=== PATIENT | male | born 1940 | race Two or more races ===

== ENCOUNTER 2016-06-19 15:03 | Emergency (ER) | payer MEDICARE, MEDICAID ==
[~2016-06-19] VITALS: Ht 167.6 cm; Wt 63.5 kg
[~2016-06-19 15:03] MED LIST: NKM
--- NOTE | 2016-06-19 17:15 | Diagnostic Imaging Report ---
Indication: PAIN Technique: 3 views of the shoulder Comparison: none Findings: Bones are osteoporotic. Joint spaces are preserved. No acute fractures or dislocations Impression:No acute process
[2016-06-19 17:50] VITALS: BP 124/65
[2016-06-19 19:30] VITALS: BP 122/68
[2016-06-19 21:45] VITALS: BP 122/68
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
--- NOTE | 2016-06-21 08:28 | Diagnostic Imaging Report ---
Indication: PAIN, headache, laceration Technique: spiral acquisitions obtained through the brain. Angled axial and coronal 5 x 5 mm slices were reconstructed. No IV contrast utilized. Radiation dose was minimized using automated exposure control Total dose length product 1520 mGycm. CTDIvol(s) 70 mGy Comparison: 08/23/2015 FINDINGS: Artifact from dental amalgam may obscure pathology in the posterior fossa. No acute hemorrhage or edema. No mass effect or midline shift. There is age-related enlargement of the ventricles and extra axial CSF spaces. There is periventricular deep white matter ischemic change. Normal yuan-white differentiation. Visualized orbits are unremarkable. There is chronic appearing right maxillary sinus disease with underlying periosteal thickening again demonstrated. Intact calvarium. No significant interim change IMPRESSION: Chronic and age-related changes. Negative for acute intracranial bleed or mass effect The CT scanner at [facility] is accredited by the [employer] and the scans are performed using protocols designed to limit radiation exposure to as low as reasonably achievable to attain images of sufficient resolution adequate for diagnostic evaluation
== END 2016-06-19 21:45 | disposition home or self-care (01) ==
LOC: EDBD 15:03 → EMR 15:26
DX: S01.01XA Laceration without foreign body of scalp, initial encounter (principal); F10.129 Alcohol abuse with intoxication, unspecified; X58.XXXA Exposure to other specified factors, initial encounter; Y92.9 Unspecified place or not applicable; Y99.8 Other external cause status
CPT/HCPCS: 70450

== ENCOUNTER 2017-07-25 14:50 | Inpatient (IN) | payer MEDICARE, MEDICAID ==
[~2017-07-25] VITALS: Ht 172.7 cm; Wt 65.6 kg
[2017-07-25 15:34] VITALS: BP 114/64
[2017-07-25] MEDS ORDERED: fentaNYL 100 mcg/2 mL IV ONE (16:00)
[2017-07-25] MEDS ORDERED: Tetanus/Diptheria/Pertussis Vaccine 0.5ml Syr IM ONE (16:00)
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
[2017-07-25 16:19] LABS: HEMATOCRIT 30.9 % (42.0-52.0); HEMOGLOBIN 10.4 G/DL (14.2-18.0); MEAN CORPUSCULAR VOLUME 109 FL (80-99); PLATELET COUNT 343 K/UL (150-450); RED BLOOD COUNT 2.84 M/UL (4.70-6.10); RED CELL DISTRIBUTION WIDTH 15.8 % (11.6-14.8)
[2017-07-25 16:24] LABS: WHITE BLOOD COUNT 24.6 K/UL (4.8-10.8)
[2017-07-25 16:38] LABS: ANION GAP 18 mmol/L (5-15); BLOOD UREA NITROGEN 36 mg/dL (7-18); CALCIUM 8.4 MG/DL (8.5-10.1); CARBON DIOXIDE 21 MMOL/L (21-32); CHLORIDE 94 MMOL/L (98-107); CREATININE 1.6 MG/DL (0.55-1.30); INR 1.2 (0.9-1.1); POTASSIUM 4.7 MMOL/L (3.5-5.1); SODIUM 133 MMOL/L (136-145)
[2017-07-25 16:52] LABS: ALANINE AMINOTRANSFERASE 77 U/L (12-78); ALBUMIN 2.7 G/DL (3.4-5.0); ALBUMIN/GLOBULIN RATIO 0.6 (1.0-2.7); ALKALINE PHOSPHATASE 159 U/L (46-116); ASPARTATE AMINO TRANSFERASE 202 U/L (15-37); BILIRUBIN,TOTAL 2.8 MG/DL (0.2-1.0); CKMB 63.1 NG/ML (0.0-3.6); CREATINE KINASE 4993 U/L (26-308)
[2017-07-25 16:53] LABS: BILIRUBIN,DIRECT 0.8 MG/DL (0.0-0.3)
--- NOTE | 2017-07-25 17:39 | Diagnostic Imaging Report ---
Indication: Pain status post fall Technique: XRAY Hip Routine 2v+ L Comparison: None Findings: There is an acute mildly comminuted intertrochanteric fracture of the left femur resulting in foreshortening/superior displacement of the distal fracture fragment. There is mild degenerative change of the left hip with joint space narrowing and subchondral sclerosis. No additional pelvic fracture identified. There are atherosclerotic basilar calcifications. IMPRESSION: Acute intertrochanteric fracture of the left femur as above.
--- NOTE | 2017-07-25 18:07 | Diagnostic Imaging Report ---
Indication: Fall Technique: XRAY Chest 1v Comparison: 08/23/2015 Findings: Heart size and mediastinal contours are within normal limits. Atherosclerotic calcifications noted within the aortic arch. There is increased interstitial markings, with more pronounced reticular markings at the bases there is linear atelectasis or scarring at the left base. The right base there is lateral lucency with possible pleural line is clearly representing a pneumothorax versus pulmonary bleb. Further evaluation with CT chest recommended. There are degenerative changes of the spine. IMPRESSION: Lucency at the right lateral base may represent pneumothorax versus pulmonary bleb . Further evaluation with CT of the chest recommended. Findings and imaging follow-up recommendations. Discussed with treating ER physician Dr. Kolb via telephone conversation. Nonspecific increased interstitial markings, most pronounced at the bases. Mild peribronchial thickening.
[2017-07-25 19:09] VITALS: BP 123/57
[2017-07-25 19:48] LABS: APPEARANCE,URINE CLEAR; BILIRUBIN, URINE 2+ (NEGATIVE); GLUCOSE, URINE (UA) NEGATIVE (NEGATIVE); KETONES,URINE 3+ (NEGATIVE); LEUKOCYTE ESTERASE ,URINE 1+ (NEGATIVE); NITRITE,URINE NEGATIVE (NEGATIVE); PH,URINE 6 (4.5-8.0); PROTEIN,URINE 2+ (NEGATIVE); UROBILINOGEN,URINE 4 MG/DL (0.0-1.0)
[2017-07-25 19:49] LABS: COLOR,URINE AMBER
[2017-07-25 20:15] VITALS: BP 120/57
[2017-07-25 20:35] VITALS: BP 112/65
[2017-07-25] MEDS ORDERED: DiphenhydrAMINE 50mg/ml Inj IVP PRN (21:45)
[2017-07-25] MEDS ORDERED: oxyCODONE HCL/Acetaminophen 5/325mg ORAL PRN (21:45)
[2017-07-25] MEDS ORDERED: cefTRIAXone 1 GM in D5W 55 ML IVPB ONE (22:00)
[2017-07-25] MEDS: Heparin 5000 units/ml inj SUBQ SCH (22:00)
[2017-07-25] MEDS: Thiamine 100mg tab ORAL SCH (22:19)
[2017-07-25] MEDS ORDERED: Vancomycin 1 GM in D5W 275 ML IVPB ONE (22:30)
[2017-07-26] VITALS: BP 110/57
--- NOTE | 2017-07-26 02:00 | History and Physical Report ---
DATE OF ADMISSION: 07/25/2017 REASON FOR ADMISSION: 1. Acute kidney injury. 2. Rhabdomyolysis. 3. Acute intertrochanteric fracture of the left femur. HISTORY OF PRESENT ILLNESS: The patient is a 77-year-old male with a history of tobacco and alcohol use, who presented to the emergency room with left hip pain. It seems that the patient had fallen approximately 3 to 7 days ago on the left side of his body. The patient is complaining of left pain in his hip and lower leg. The patient was at home with his and granddaughter, who came to visit him. During this time, the patient had not gotten up for at least 3 days. The family says he does not take any medications and he was otherwise healthy other than using tobacco and alcohol on a regular basis. They have been changing him over the last 3 to 4 days while he was on the floor. Upon presentation in the emergency room, it was noted that he had a white cell count of 24.6, hemoglobin of 10.4, sodium 133, potassium 4.7, BUN 36, creatinine 1.6, bicarb level of 21, and a CPK level of 4993, and troponin level of 0.1. PAST MEDICAL HISTORY: None. PAST SURGICAL HISTORY: None. ALLERGIES: No known drug allergies. SOCIAL HISTORY: The patient has been on alcohol, tobacco, and illicit drug use. REVIEW OF SYSTEMS: NEUROLOGIC: The patient denies headache, change in vision, syncope, or presyncopal episodes. CARDIOVASCULAR: No current chest pain, palpitations, or angina. PULMONARY: No difficulty breathing, productive cough, or sputum. GASTROINTESTINAL/GENITOURINARY: No changes in urinary or bowel habits. No nausea, vomiting, or diarrhea. ENDOCRINOLOGY: No night sweats, fevers, or chills. MUSCULOSKELETAL: The patient is feeling tired and weak with left-sided hip and leg pain. PHYSICAL EXAMINATION: VITAL SIGNS: Blood pressure 120/57, pulse 95, temperature 98.3, and 98% oxygen saturation on room air. GENERAL: The patient is awake, alert, and not otherwise in distress. HEENT: Extraocular muscles intact. No lymphadenopathy noted. CARDIOVASCULAR: S1 and S2. No rubs or gallops. PULMONARY: Clear to auscultation bilaterally. No rales, rhonchi, or wheezes. ABDOMINAL: Nondistended and nontender. EXTREMITIES: No edema noted with left hip externally rotated. LABORATORY DATA: Labs dated 07/25/2017, sodium 133, potassium 4.7, creatinine 1.6, CPK 4993, and troponin level 0.1. White cell count 24.6 and hemoglobin 10.4. ASSESSMENT AND PLAN: 1. 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 At this time, we will continue aggressive hydration. Normal saline has been initiated and a renal ultrasound has been ordered. We will avoid any nephrotoxins and aggressively hydrate the patient. Repeat CPK in the morning and Cr, we may have to increase intravenous fluid rate. 2. Hyponatremia, mild, secondary to volume depletion. At this time, continue aggressive hydration. Last serum sodium 133. 3. Hip fracture. The patient with an acute intertrochanteric fracture of left femur. Orthopedics Dr. Zepeda has been consulted. 4. Elevated troponin. At this time, Cardiology has been consulted to evaluate for possible acute coronary syndrome with elevated troponins and cardiac clearance prior to hip surgery. 5. DVT prophylaxis has been initiated with heparin subcutaneous 5000 units q.8 hours. 6. Leukocytosis, white cell count 24.8. Blood cultures have been ordered and one dose of Rocephin and vancomycin are going to be given after the cultures have been collected. 7. Pulmonary bleb versus right lateral base pneumothorax. We will consult Pulmonary for further evaluation and management. Tien Nielsen MD DR: HEAVENLY JOB#: [id number] CC: GREGOR
[2017-07-26 04:00] VITALS: BP 123/59
[2017-07-26] MEDS: Heparin 5000 units/ml inj SUBQ SCH ×3 (05:51→21:57)
[2017-07-26 08:00] VITALS: BP 123/62
--- NOTE | 2017-07-26 08:27 | Nephrology Progress Note ---
Assessment/Plan Assessment/Plan 1. Acute intertrochanteric fracture of left femur - appreciate Ortho assistance, Dr Zepeda 2. Leukocytosis- cultures collected and Vanc/Rocephin one dose given. Will consult ID for further recc's 3. ACS- elevated Trop I , appreciate cardiology evaluation and clearance for surgery 4. DVT prophylaxsis- with heparing sub q q 8hrs 5. 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 Continue IVF's, AM labs pending 6. Rhabdomyolysis- due to broken femur and immobiliztion for several days at home - CPK and Cr levels pending this am Subjective Date patient seen: July 26, 2017 Time patient seen: 08:22 ROS Limited/Unobtainable: No Constitutional: Reports: weakness, other - left hip/leg pain Allergies: Coded Allergies: No Known Allergies (Unverified , 08/23/15) All Systems: reviewed and negative except above Subjective Patient declining residential monitor. Left leg pain Objective Last 24 Hour Vital Signs Date Time Temp Pulse Resp B/P (MAP) Pulse Ox O2 Delivery O2 Flow Rate FiO2 07/26/17 04:00 98.2 90 20 123/59 95 Room Air 98.2 07/26/17 00:00 98.0 97 20 110/57 96 Room Air 98.0 07/26/17 00:00 104 07/25/17 20:52 102 07/25/17 20:35 98.0 98 20 112/65 99 Room Air 98.0 07/25/17 20:15 98.3 95 18 120/57 98 Room Air 208.9 07/25/17 20:15 98.3 95 18 120/57 98 Room Air 98.3 07/25/17 19:09 109 25 123/57 97 Room Air 07/25/17 15:34 104 16 114/64 98 Room Air 07/25/17 15:27 104 16 114/64 98 Room Air Intake and Output 07/25/17 07/26/17 19:00 07:00 Intake Total 1000 ml 2212 ml Balance 1000 ml 2212 ml Intake Oral 240 ml IV Total 1000 ml 1972 ml # Voids 1 Laboratory Tests 07/25/17 16:01: White Blood Count 24.6*H, Red Blood Count 2.84L, Hemoglobin 10.4L, Hematocrit 30.9L, Mean Corpuscular Volume 109H, Mean Corpuscular Hemoglobin 36.6H, Mean Corpuscular Hemoglobin Concent 33.7, Red Cell Distribution Width 15.8H, Platelet Count 343, Mean Platelet Volume 6.1L, Neutrophils (%) (Auto) , Lymphocytes (%) (Auto) , Monocytes (%) (Auto) , Eosinophils (%) (Auto) , Basophils (%) (Auto) , Differential Total Cells Counted 100, Neutrophils % ( Manual) 90H, Lymphocytes % (Manual) 3L, Monocytes % (Manual) 2, Eosinophils % ( Manual) 0, Basophils % (Manual) 0, Band Neutrophils 5, Platelet Estimate Adequate, Platelet Morphology Normal, Polychromasia 1+, Anisocytosis 1+, Macrocytosis 2+, Prothrombin Time 13.1H, Prothromb Time International Ratio 1.2H , Activated Partial Thromboplast Time 29, Sodium Level 133L, Potassium Level 4.7 , Chloride Level 94L, Carbon Dioxide Level 21, Anion Gap 18H, Blood Urea Nitrogen 36H, Creatinine 1.6H, Estimat Glomerular Filtration Rate , Glucose Level 170H, Calcium Level 8.4L, Total Bilirubin 2.8H, Direct Bilirubin 0.8H, Aspartate Amino Transf (AST/SGOT) 202H, Alanine Aminotransferase (ALT/SGPT) 77, Alkaline Phosphatase 159H, Total Creatine Kinase 4993H, Creatine Kinase MB 63.1H , Creatine Kinase MB Relative Index 1.2, Troponin I 0.101H, Total Protein 7.1, Albumin 2.7L, Globulin 4.4, Albumin/Globulin Ratio 0.6L 07/25/17 19:30: Urine Color Adrcie, Urine Appearance Clear, Urine pH 6, Urine Specific [place] 1.015, Urine Protein 2+H, Urine Glucose (UA) Negative, Urine Ketones 3+H, Urine Occult Blood 5+H, Urine Nitrite Negative, Urine Bilirubin 2+H, Urine Ictotest Positive, Urine Urobilinogen 4H, Urine Leukocyte Esterase 1+H, Urine RBC 5-10H, Urine WBC 5-10H, Urine Squamous Epithelial Cells Occasional, Urine Bacteria Few Height (Feet): 5 Height (Inches): 8.00 Weight (Pounds): 150 General Appearance: WD/WN, no apparent distress EENT: PERRL/EOMI, normal ENT inspection Neck: non-tender, normal alignment Cardiovascular: normal peripheral pulses, regular rhythm Respiratory/Chest: lungs clear, normal breath sounds Abdomen: non tender, soft Edema: no edema noted Arm (L), no edema noted Arm (R), no edema noted Leg (L), no edema noted Leg (R), no edema noted Pedal (L), no edema noted Pedal (R), no edema noted Generalized Tien Nielsen M.D. July 26, 2017 08:27
[2017-07-26] MEDS: Thiamine 100mg tab ORAL SCH (08:41)
[2017-07-26 09:16] LABS: HEMATOCRIT 26.4 % (42.0-52.0); HEMOGLOBIN 8.7 G/DL (14.2-18.0); MEAN CORPUSCULAR VOLUME 111 FL (80-99); PLATELET COUNT 277 K/UL (150-450); RED BLOOD COUNT 2.37 M/UL (4.70-6.10); RED CELL DISTRIBUTION WIDTH 15.5 % (11.6-14.8)
[2017-07-26 09:37] LABS: ANION GAP 9 mmol/L (5-15); BLOOD UREA NITROGEN 24 mg/dL (7-18); CALCIUM 7.6 MG/DL (8.5-10.1); CARBON DIOXIDE 25 MMOL/L (21-32); CHLORIDE 101 MMOL/L (98-107); POTASSIUM 3.5 MMOL/L (3.5-5.1); SODIUM 135 MMOL/L (136-145)
--- NOTE | 2017-07-26 10:04 | Diagnostic Imaging Report ---
Indication: Neck pain. Technique: Continuous helical imaging of the cervical spine was obtained transaxially from the skull base to the upper thoracic spine. 2-D coronal and sagittal reformatted images were obtained. Automatic Exposure Control was utilized. Total Dose length Product (DLP): 1655.[address] Dose Index Volume (CTDIvol): 70.38,12.82 mGy Comparison: None Findings: There is no acute fracture or malalignment identified. There is no soft tissue swelling identified. There is a somewhat accentuated lordosis of the cervical spine. Mild uncovertebral arthritis is demonstrated at multiple levels. Some of the intervertebral discs show mild narrowing. There is some biapical paraseptal bleb formation within the lungs. Impression: No acute injury. Mild spondylosis Chronic lung disease. [facility] has communicated the preliminary results to the Emergency Department. Their findings are largely concordant with this report. The CT scanner at [facility] is accredited by the [employer] and the scans are performed using dose optimization techniques as appropriate to a performed exam including Automatic Exposure control.
--- NOTE | 2017-07-26 10:39 | Diagnostic Imaging Report ---
Indication: Headache. Head trauma Technique: Contiguous 5 mm thick transaxial imaging of the head obtained in a Siemens Sensation [address] scanner. Soft tissue and bone windows generated. Automatic Exposure Control was utilized. Total Dose length Product (DLP): 1655.[address] Dose Index Volume (CTDIvol): 70.38,12.82 mGy Comparison: 06/19/2016 Findings: There is moderate prominence of the ventricles, basal cisterns, and cerebral sulci consistent with atrophy. Moderate, nonspecific, white matter hypoattenuation is noted throughout the brain consistent with chronic small vessel disease. There is no midline shift, edema, acute hemorrhage, mass effect, or abnormal extra-axial fluid collections. There is osteitis with wall thickening involving the right maxillary sinus which is abnormally opacified. Impression: No acute intracranial bleed, mass effect or edema. Moderate atrophy of the brain. Evidence of chronic small vessel disease involving white matter tracts. Chronic right maxillary sinusitis. [facility] has communicated the preliminary results to the Emergency Department. Their findings are largely concordant with this report. The CT scanner at [facility] is accredited by the [employer] and the scans are performed using dose optimization techniques as appropriate to a performed exam including Automatic Exposure control.
[2017-07-26 10:42] LABS: CREATINE KINASE 3078 U/L (26-308)
[2017-07-26 12:00] VITALS: BP 117/61
--- NOTE | 2017-07-26 13:19 | Infectious Diseases Prog Note ---
Assessment/Plan Problems: (1) Sepsis Assessment & Plan: will send blood culture and start vancomycin with cefepime empirically (2) UTI (urinary tract infection) Assessment & Plan: will send urine culture and start cefepime empirically (3) Onychomycosis Assessment & Plan: will start lamasil for 3 months (4) Hip fracture, left Assessment & Plan: will need ortho eval for ORIF , continue pain control (5) GENTRY (acute kidney injury) Assessment & Plan: due to the above, continue hydration and renally dosed antibiotics, pharmacy is following Subjective Allergies: Coded Allergies: No Known Allergies (Unverified , 08/23/15) Objective Vital Signs Last 24 Hour Vital Signs Date Time Temp Pulse Resp B/P (MAP) Pulse Ox O2 Delivery O2 Flow Rate FiO2 07/26/17 08:00 97.5 94 20 123/62 96 Room Air 97.5 07/26/17 08:00 97 07/26/17 04:00 98.2 90 20 123/59 95 Room Air 98.2 07/26/17 00:00 98.0 97 20 110/57 96 Room Air 98.0 07/26/17 00:00 104 07/25/17 20:52 102 07/25/17 20:35 98.0 98 20 112/65 99 Room Air 98.0 07/25/17 20:15 98.3 95 18 120/57 98 Room Air 208.9 07/25/17 20:15 98.3 95 18 120/57 98 Room Air 98.3 07/25/17 19:09 109 25 123/57 97 Room Air 07/25/17 15:34 104 16 114/64 98 Room Air 07/25/17 15:27 104 16 114/64 98 Room Air Height (Feet): 5 Height (Inches): 8.00 Weight (Pounds): 150 Laboratory Tests Test 07/25/17 16:01 07/25/17 19:30 07/26/17 08:00 White Blood Count 24.6 K/UL (4.8-10.8) *H 19.0 K/UL (4.8-10.8) H Red Blood Count 2.84 M/UL (4.70-6.10) L 2.37 M/UL (4.70-6.10) L Hemoglobin 10.4 G/DL (14.2-18.0) L 8.7 G/DL (14.2-18.0) L Hematocrit 30.9 % (42.0-52.0) L 26.4 % (42.0-52.0) L Mean Corpuscular Volume 109 FL (80-99) H 111 FL (80-99) H Mean Corpuscular Hemoglobin 36.6 PG (27.0-31.0) H 36.9 PG (27.0-31.0) H Mean Corpuscular Hemoglobin Concent 33.7 G/DL (32.0-36.0) 33.2 G/DL (32.0-36.0) Red Cell Distribution Width 15.8 % (11.6-14.8) H 15.5 % (11.6-14.8) H Platelet Count 343 K/UL (150-450) 277 K/UL (150-450) Mean Platelet Volume 6.1 FL (6.5-10.1) L 6.5 FL (6.5-10.1) Neutrophils (%) (Auto) % (45.0-75.0) % (45.0-75.0) Lymphocytes (%) (Auto) % (20.0-45.0) % (20.0-45.0) Monocytes (%) (Auto) % (1.0-10.0) % (1.0-10.0) Eosinophils (%) (Auto) % (0.0-3.0) % (0.0-3.0) Basophils (%) (Auto) % (0.0-2.0) % (0.0-2.0) Differential Total Cells Counted 100 100 Neutrophils % (Manual) 90 % (45-75) H 93 % (45-75) H Lymphocytes % (Manual) 3 % (20-45) L 4 % (20-45) L Monocytes % (Manual) 2 % (1-10) 3 % (1-10) Eosinophils % (Manual) 0 % (0-3) 0 % (0-3) Basophils % (Manual) 0 % (0-2) 0 % (0-2) Band Neutrophils 5 % (0-8) 0 % (0-8) Platelet Estimate Adequate Adequate Platelet Morphology Normal Normal Polychromasia 1+ Anisocytosis 1+ 1+ Macrocytosis 2+ 1+ Prothrombin Time 13.1 SEC (9.30-11.50) H Prothromb Time International Ratio 1.2 (0.9-1.1) H Activated Partial Thromboplast Time 29 SEC (23-33) Sodium Level 133 MMOL/L (136-145) L 135 MMOL/L (136-145) L Potassium Level 4.7 MMOL/L (3.5-5.1) 3.5 MMOL/L (3.5-5.1) Chloride Level 94 MMOL/L (98-107) L 101 MMOL/L (98-107) Carbon Dioxide Level 21 MMOL/L (21-32) 25 MMOL/L (21-32) Anion Gap 18 mmol/L (5-15) H 9 mmol/L (5-15) Blood Urea Nitrogen 36 mg/dL (7-18) H 24 mg/dL (7-18) H Creatinine 1.6 MG/DL (0.55-1.30) H 1.0 MG/DL (0.55-1.30) Estimat Glomerular Filtration Rate mL/min (>60) mL/min (>60) Glucose Level 170 MG/DL (74-106) H 154 MG/DL (74-106) H Calcium Level 8.4 MG/DL (8.5-10.1) L 7.6 MG/DL (8.5-10.1) L Total Bilirubin 2.8 MG/DL (0.2-1.0) H Direct Bilirubin 0.8 MG/DL (0.0-0.3) H Aspartate Amino Transf (AST/SGOT) 202 U/L (15-37) H Alanine Aminotransferase (ALT/SGPT) 77 U/L (12-78) Alkaline Phosphatase 159 U/L (46-116) H Total Creatine Kinase 4993 U/L (26-308) H 3078 U/L (26-308) H Creatine Kinase MB 63.1 NG/ML (0.0-3.6) H Creatine Kinase MB Relative Index 1.2 Troponin I 0.101 ng/mL (0.000-0.056) 0.074 ng/mL (0.000-0.056) Total Protein 7.1 G/DL (6.4-8.2) Albumin 2.7 G/DL (3.4-5.0) L Globulin 4.4 g/dL Albumin/Globulin Ratio 0.6 (1.0-2.7) L Urine Color Darcie Urine Appearance Clear Urine pH 6 (4.5-8.0) Urine Specific [place] 1.015 (1.005-1.035) Urine Protein 2+ (NEGATIVE) H Urine Glucose (UA) Negative (NEGATIVE) Urine Ketones 3+ (NEGATIVE) H Urine Occult Blood 5+ (NEGATIVE) H Urine Nitrite Negative (NEGATIVE) Urine Bilirubin 2+ (NEGATIVE) H Urine Ictotest Positive Urine Urobilinogen 4 MG/DL (0.0-1.0) H Urine Leukocyte Esterase 1+ (NEGATIVE) H Urine RBC 5-10 /HPF (0 - 0) H Urine WBC 5-10 /HPF (0 - 0) H Urine Squamous Epithelial Cells Occasional /LPF Urine Bacteria Few /HPF (NONE) Hypochromasia 1+ Current Medications Medications (Trade) Dose Ordered Sig/Leeroy Route PRN Reason Start Time Stop Time Status Last Admin Dose Admin Aspirin (ASA) 325 mg ONCE ORAL 07/25/17 18:30 07/26/17 18:29 07/25/17 19:01 Dextrose (Dextrose 50%) 25 ml STAT PRN IV Hypoglycemia 07/25/17 20:45 08/24/17 20:44 Dextrose (Dextrose 50%) 50 ml STAT PRN IV Hypoglycemia 07/25/17 20:45 08/24/17 20:44 Diphenhydramine HCl (Benadryl) 25 mg Q6H PRN IVP Restlessness 07/25/17 21:45 08/24/17 21:44 Folic Acid (Folate) 1 mg DAILY ORAL 07/26/17 09:00 08/25/17 08:59 07/26/17 08:41 Heparin Sodium (Porcine) (Heparin 5000 units/ml) 5,000 units EVERY 8 HOURS SUBQ 07/25/17 22:00 08/24/17 21:59 07/26/17 05:51 Oxycodone/ Acetaminophen (Percocet 5-325) 1 tab Q4H PRN ORAL Mild Pain (Pain Scale 1-3) 07/25/17 21:45 08/01/17 21:44 Sodium Chloride 1,000 ml @ 100 mls/hr Q10H IVLG 07/25/17 21:44 08/24/17 21:43 07/26/17 08:43 Thiamine HCl (Vitamin B1) 100 mg DAILY ORAL 07/25/17 21:15 08/24/17 21:14 07/26/17 08:41 Kee Mcfarlane M.D. July 26, 2017 13:19
--- NOTE | 2017-07-26 14:02 | Anethesia Preoperative Eval ---
Anesthesia Pre-op PMH/ROS General Date of Evaluation: July 26, 2017 Time of Evaluation: 14:00 Anesthesiologist: VESTA ASA Score: ASA 2 Mallampati Score Class I : Soft palate, uvula, fauces, pillars visible Class II: Soft palate, uvula, fauces visible Class III: Soft palate, base of uvula visible Class IV: Only hard plate visible Mallampati Classification: Class II Surgeon: Duane Diagnosis: Left Hip Fracture Surgical Procedure: ORIF Left Hip Anesthesia History: none Family History: no anesthesia problems Allergies: Coded Allergies: No Known Allergies (Unverified , 08/23/15) Medications: see eMAR Anesthesia Pre-op Phys. Exam Physician Exam Last Vital Signs Date Time Temp Pulse Resp B/P (MAP) Pulse Ox O2 Delivery O2 Flow Rate FiO2 07/26/17 12:00 97.7 82 18 117/61 95 Room Air 97.7 Constitutional: NAD Neurologic: CN 2-12 intact Cardiovascular: RRR Respiratory: CTA Gastrointestinal: S/NT/ND Airway Exam Mallampati Score: Class II MO: full ROM: full Teeth: intact Anesthesia Pre-op A/P Labs Hematology Test 07/25/17 16:01 07/26/17 08:00 White Blood Count 24.6 K/UL (4.8-10.8) *H 19.0 K/UL (4.8-10.8) H Red Blood Count 2.84 M/UL (4.70-6.10) L 2.37 M/UL (4.70-6.10) L Hemoglobin 10.4 G/DL (14.2-18.0) L 8.7 G/DL (14.2-18.0) L Hematocrit 30.9 % (42.0-52.0) L 26.4 % (42.0-52.0) L Mean Corpuscular Volume 109 FL (80-99) H 111 FL (80-99) H Mean Corpuscular Hemoglobin 36.6 PG (27.0-31.0) H 36.9 PG (27.0-31.0) H Mean Corpuscular Hemoglobin Concent 33.7 G/DL (32.0-36.0) 33.2 G/DL (32.0-36.0) Red Cell Distribution Width 15.8 % (11.6-14.8) H 15.5 % (11.6-14.8) H Platelet Count 343 K/UL (150-450) 277 K/UL (150-450) Mean Platelet Volume 6.1 FL (6.5-10.1) L 6.5 FL (6.5-10.1) Neutrophils (%) (Auto) % (45.0-75.0) % (45.0-75.0) Lymphocytes (%) (Auto) % (20.0-45.0) % (20.0-45.0) Monocytes (%) (Auto) % (1.0-10.0) % (1.0-10.0) Eosinophils (%) (Auto) % (0.0-3.0) % (0.0-3.0) Basophils (%) (Auto) % (0.0-2.0) % (0.0-2.0) Differential Total Cells Counted 100 100 Neutrophils % (Manual) 90 % (45-75) H 93 % (45-75) H Lymphocytes % (Manual) 3 % (20-45) L 4 % (20-45) L Monocytes % (Manual) 2 % (1-10) 3 % (1-10) Eosinophils % (Manual) 0 % (0-3) 0 % (0-3) Basophils % (Manual) 0 % (0-2) 0 % (0-2) Band Neutrophils 5 % (0-8) 0 % (0-8) Platelet Estimate Adequate Adequate Platelet Morphology Normal Normal Polychromasia 1+ Anisocytosis 1+ 1+ Macrocytosis 2+ 1+ Hypochromasia 1+ Coagulation Test 07/25/17 16:01 Prothrombin Time 13.1 SEC (9.30-11.50) H Prothromb Time International Ratio 1.2 (0.9-1.1) H Activated Partial Thromboplast Time 29 SEC (23-33) Chemistry Test 07/25/17 16:01 07/26/17 08:00 Sodium Level 133 MMOL/L (136-145) L 135 MMOL/L (136-145) L Potassium Level 4.7 MMOL/L (3.5-5.1) 3.5 MMOL/L (3.5-5.1) Chloride Level 94 MMOL/L (98-107) L 101 MMOL/L (98-107) Carbon Dioxide Level 21 MMOL/L (21-32) 25 MMOL/L (21-32) Anion Gap 18 mmol/L (5-15) H 9 mmol/L (5-15) Blood Urea Nitrogen 36 mg/dL (7-18) H 24 mg/dL (7-18) H Creatinine 1.6 MG/DL (0.55-1.30) H 1.0 MG/DL (0.55-1.30) Estimat Glomerular Filtration Rate mL/min (>60) mL/min (>60) Glucose Level 170 MG/DL (74-106) H 154 MG/DL (74-106) H Calcium Level 8.4 MG/DL (8.5-10.1) L 7.6 MG/DL (8.5-10.1) L Total Bilirubin 2.8 MG/DL (0.2-1.0) H Direct Bilirubin 0.8 MG/DL (0.0-0.3) H Aspartate Amino Transf (AST/SGOT) 202 U/L (15-37) H Alanine Aminotransferase (ALT/SGPT) 77 U/L (12-78) Alkaline Phosphatase 159 U/L (46-116) H Total Creatine Kinase 4993 U/L (26-308) H 3078 U/L (26-308) H Creatine Kinase MB 63.1 NG/ML (0.0-3.6) H Creatine Kinase MB Relative Index 1.2 Troponin I 0.101 ng/mL (0.000-0.056) 0.074 ng/mL (0.000-0.056) Total Protein 7.1 G/DL (6.4-8.2) Albumin 2.7 G/DL (3.4-5.0) L Globulin 4.4 g/dL Albumin/Globulin Ratio 0.6 (1.0-2.7) L Risk Assessment & Plan Plan: GA Status Change Before Surgery: No Pre-Antibiotics Given Within 1 Hr of Incision: Ld Smith M.D. July 26, 2017 14:02
--- NOTE | 2017-07-26 14:07 | Diagnostic Imaging Report ---
Indication:Elevated Bun and Creatinine. Technique: Grayscale and duplex Doppler imaging of the kidneys performed. Comparison: None Findings: The size, contour, and echogenicity of both kidneys are within normal limits. There is a small cyst 8 mm and 10 mm in size within the right kidney. Right kidney is 9.6 cm. Left kidney 9.5 cm. There is no hydronephrosis. The IVC and urinary bladder are unremarkable. Liver is echogenic. IMPRESSION: Negative examination of the kidneys. Right renal cyst Fatty liver
[2017-07-26] MEDS: Cefepime HCl 2 GM in D5W 55 ML IVPB SCH (15:28)
--- NOTE | 2017-07-26 15:29 | Diagnostic Imaging Report ---
Indication: Pneumothorax. Technique: Continuous helical transaxial imaging of the chest was obtained from the thoracic inlet to the upper abdomen. No intravenous contrast was administered. Coronal 2-D reformats were also obtained. Total Dose length Product (DLP): 459.[address] Dose Index Volume (CTDIvol): 13.23 mGy Comparison: none Findings: There is a small pneumothorax at the right lung base less than 5%. There is considerable reticular densities at the lung bases bilaterally with some groundglass opacities, bronchiectasis and extensive bullous disease consistent with emphysema. Generalized hyperinflation demonstrated. Aorta is moderately calcified. Visualized upper abdomen shows 2 or 3 calcifications in the left renal hilum which may be small nonobstructive stones. Punctate calcifications in the liver also noted nonspecific. There is narrowing of intervertebral discs and accompanying endplate osteophyte formation. Hypertrophied facet joints also demonstrated.. IMPRESSION: Tiny right basilar pneumothorax. Extensive bullous emphysema with scattered areas of scarring and brought traction bronchiectasis. Degenerative changes of the spine Atherosclerotic disease Suspected tiny nonobstructive stones in the left kidney. Few calcified in the liver. This may be due to old granulomatous disease The CT scanner at [facility] is accredited by the [employer] and the scans are performed using dose optimization techniques as appropriate to a performed exam including Automatic Exposure control.
--- NOTE | 2017-07-26 15:37 | Cardiac Electrophysiology PN ---
Subjective Subjective [id number] Objective Last 24 Hour Vital Signs Date Time Temp Pulse Resp B/P (MAP) Pulse Ox O2 Delivery O2 Flow Rate FiO2 07/26/17 12:00 97.7 82 18 117/61 95 Room Air 97.7 07/26/17 12:00 82 07/26/17 08:00 97.5 94 20 123/62 96 Room Air 97.5 07/26/17 08:00 97 07/26/17 04:00 98.2 90 20 123/59 95 Room Air 98.2 07/26/17 00:00 98.0 97 20 110/57 96 Room Air 98.0 07/26/17 00:00 104 07/25/17 20:52 102 07/25/17 20:35 98.0 98 20 112/65 99 Room Air 98.0 07/25/17 20:15 98.3 95 18 120/57 98 Room Air 208.9 07/25/17 20:15 98.3 95 18 120/57 98 Room Air 98.3 07/25/17 19:09 109 25 123/57 97 Room Air Intake and Output 07/25/17 07/26/17 19:00 07:00 Intake Total 1000 ml 2212 ml Balance 1000 ml 2212 ml Intake Oral 240 ml IV Total 1000 ml 1972 ml # Voids 1 Laboratory Tests Test 07/25/17 16:01 07/25/17 19:30 07/26/17 08:00 White Blood Count 24.6 K/UL (4.8-10.8) *H 19.0 K/UL (4.8-10.8) H Red Blood Count 2.84 M/UL (4.70-6.10) L 2.37 M/UL (4.70-6.10) L Hemoglobin 10.4 G/DL (14.2-18.0) L 8.7 G/DL (14.2-18.0) L Hematocrit 30.9 % (42.0-52.0) L 26.4 % (42.0-52.0) L Mean Corpuscular Volume 109 FL (80-99) H 111 FL (80-99) H Mean Corpuscular Hemoglobin 36.6 PG (27.0-31.0) H 36.9 PG (27.0-31.0) H Mean Corpuscular Hemoglobin Concent 33.7 G/DL (32.0-36.0) 33.2 G/DL (32.0-36.0) Red Cell Distribution Width 15.8 % (11.6-14.8) H 15.5 % (11.6-14.8) H Platelet Count 343 K/UL (150-450) 277 K/UL (150-450) Mean Platelet Volume 6.1 FL (6.5-10.1) L 6.5 FL (6.5-10.1) Neutrophils (%) (Auto) % (45.0-75.0) % (45.0-75.0) Lymphocytes (%) (Auto) % (20.0-45.0) % (20.0-45.0) Monocytes (%) (Auto) % (1.0-10.0) % (1.0-10.0) Eosinophils (%) (Auto) % (0.0-3.0) % (0.0-3.0) Basophils (%) (Auto) % (0.0-2.0) % (0.0-2.0) Differential Total Cells Counted 100 100 Neutrophils % (Manual) 90 % (45-75) H 93 % (45-75) H Lymphocytes % (Manual) 3 % (20-45) L 4 % (20-45) L Monocytes % (Manual) 2 % (1-10) 3 % (1-10) Eosinophils % (Manual) 0 % (0-3) 0 % (0-3) Basophils % (Manual) 0 % (0-2) 0 % (0-2) Band Neutrophils 5 % (0-8) 0 % (0-8) Platelet Estimate Adequate Adequate Platelet Morphology Normal Normal Polychromasia 1+ Anisocytosis 1+ 1+ Macrocytosis 2+ 1+ Prothrombin Time 13.1 SEC (9.30-11.50) H Prothromb Time International Ratio 1.2 (0.9-1.1) H Activated Partial Thromboplast Time 29 SEC (23-33) Sodium Level 133 MMOL/L (136-145) L 135 MMOL/L (136-145) L Potassium Level 4.7 MMOL/L (3.5-5.1) 3.5 MMOL/L (3.5-5.1) Chloride Level 94 MMOL/L (98-107) L 101 MMOL/L (98-107) Carbon Dioxide Level 21 MMOL/L (21-32) 25 MMOL/L (21-32) Anion Gap 18 mmol/L (5-15) H 9 mmol/L (5-15) Blood Urea Nitrogen 36 mg/dL (7-18) H 24 mg/dL (7-18) H Creatinine 1.6 MG/DL (0.55-1.30) H 1.0 MG/DL (0.55-1.30) Estimat Glomerular Filtration Rate mL/min (>60) mL/min (>60) Glucose Level 170 MG/DL (74-106) H 154 MG/DL (74-106) H Calcium Level 8.4 MG/DL (8.5-10.1) L 7.6 MG/DL (8.5-10.1) L Total Bilirubin 2.8 MG/DL (0.2-1.0) H Direct Bilirubin 0.8 MG/DL (0.0-0.3) H Aspartate Amino Transf (AST/SGOT) 202 U/L (15-37) H Alanine Aminotransferase (ALT/SGPT) 77 U/L (12-78) Alkaline Phosphatase 159 U/L (46-116) H Total Creatine Kinase 4993 U/L (26-308) H 3078 U/L (26-308) H Creatine Kinase MB 63.1 NG/ML (0.0-3.6) H Creatine Kinase MB Relative Index 1.2 Troponin I 0.101 ng/mL (0.000-0.056) 0.074 ng/mL (0.000-0.056) Total Protein 7.1 G/DL (6.4-8.2) Albumin 2.7 G/DL (3.4-5.0) L Globulin 4.4 g/dL Albumin/Globulin Ratio 0.6 (1.0-2.7) L Urine Color Darcie Urine Appearance Clear Urine pH 6 (4.5-8.0) Urine Specific [place] 1.015 (1.005-1.035) Urine Protein 2+ (NEGATIVE) H Urine Glucose (UA) Negative (NEGATIVE) Urine Ketones 3+ (NEGATIVE) H Urine Occult Blood 5+ (NEGATIVE) H Urine Nitrite Negative (NEGATIVE) Urine Bilirubin 2+ (NEGATIVE) H Urine Ictotest Positive Urine Urobilinogen 4 MG/DL (0.0-1.0) H Urine Leukocyte Esterase 1+ (NEGATIVE) H Urine RBC 5-10 /HPF (0 - 0) H Urine WBC 5-10 /HPF (0 - 0) H Urine Squamous Epithelial Cells Occasional /LPF Urine Bacteria Few /HPF (NONE) Hypochromasia 1+ Preet Spencer MD July 26, 2017 15:37
[2017-07-26 16:00] VITALS: BP 129/70
--- NOTE | 2017-07-26 17:30 | Consultation ---
DATE OF CONSULTATION: 07/26/2017 PULMONARY CONSULTATION CONSULTING PHYSICIAN: Hay Crook M.D. HISTORY OF PRESENT ILLNESS: This is a 77-year-old male, who was admitted to the hospital after an acute fall. The patient was seen and worked up. He was found to have an acute intertrochanteric fracture of left femur. He also found to have renal failure and rhabdomyolysis. Additionally, he has been found to have abnormality on chest x-ray, which is possibly a loculated pneumothorax or a bleb. On my review, it appears more like a loculated right basilar pneumothorax. The patient unable to provide any clear history. PAST HISTORY: Not known. SURGERIES: Not known. ALLERGIES: Not known. SOCIAL HISTORY: No history of alcohol or tobacco usage. REVIEW OF SYSTEMS: Denies any headaches, hematemesis, or melena. No shortness of breath. PHYSICAL EXAMINATION: GENERAL: Reveals a 77-year-old male. HEENT: Unremarkable. LUNGS: Clear breath sounds bilaterally. ABDOMEN: Soft. EXTREMITIES: There is no edema. NEUROLOGIC: Nonfocal. LABORATORY AND DIAGNOSTIC DATA: Lab testing is unremarkable with normal CBC and BMP. The exception, of course, is the white count 19,000, hemoglobin of 8, and platelet count is 277,000. Creatinine is 1. Coagulations are negative. Urinalysis is negative. IMPRESSION: 1. Loculated right pneumothorax. 2. Hip fracture. DISCUSSION: We will obtain CT chest. The patient is anticipated to undergo hip surgery. He may be on positive-pressure ventilation, which may have worsened the pneumothorax. I will therefore obtain chest CT and if indicated, we will consider placement of small bore chest tube. We will follow as jack spooler tender. Hay Crook M.D. DR: SHANELLE JOB#: [id number] CC:
--- NOTE | 2017-07-26 18:13 | Cardiology Report ---
APPROVED REPORT EKG Measurement Heart [id number] Sinus tachycardia Pulmonary disease pattern Right bundle branch block Left anterior fascicular block Bifascicular block Abnormal ECG
--- NOTE | 2017-07-26 19:30 | Consultation ---
DATE OF CONSULTATION: 07/26/2017 CONSULTING PHYSICIAN: Kee Mcfarlane M.D. REQUESTING PHYSICIAN: Dr. morgan REASON FOR CONSULTATION: Sepsis, leukocytosis, and UTI. Recommendation for antibiotics treatment. HISTORY OF PRESENT ILLNESS: The patient is a 77-year-old gentleman with no significant past medical history except for alcohol and tobacco abuse, who presented to [facility] Emergency Room with sudden onset of left hip pain for almost 3 days. The patient fell at home a couple of days ago. He landed on his left side of the body and was complaining of pain in his left hip and left leg. The patient was being assisted by his and granddaughter at that time when he was unable to get up or walk after his fall. The patient used usually tobacco and alcohol on regular basis and he has been so far bedridden for the last four days as per the record. The patient was found to have left femur neck fracture in the emergency room as part of his evaluation. His white count was elevated to 24,000. His urinalysis showed evidence of infection. His CPK level also was elevated due to rhabdomyolysis with renal failure, so Infectious Disease consultation was requested for management and treatment of sepsis and UTI. As of note, the patient is Brazilian speaker mainly. History was mainly obtained via back sizer. PAST MEDICAL HISTORY: Tobacco and alcohol abuse. PAST SURGICAL HISTORY: Negative. ALLERGIES: No known drug allergy. SOCIAL HISTORY: The patient lives at home with and granddaughter. He used tobacco and alcohol, but denied any illicit drugs. MEDICATIONS: The patient was started on vancomycin and ceftriaxone. For the rest of his medications, please refer to MAR. PHYSICAL EXAMINATION: VITAL SIGNS: Temperature 97.7, pulse 82, respiration 18, blood pressure 117/61, saturation 95% on room air. GENERAL: An elderly male, lying in bed, awake, alert, Brazilian speaker, not in acute distress. HEENT: Normocephalic and atraumatic. Pupils reactive to light. Moist oral mucosa. No exudate or thrush. NECK: Supple. No lymphadenopathy. CARDIOVASCULAR: Regular rate and rhythm. No murmur. No gallop. LUNGS: Clear bilaterally. No wheezing or rhonchi. Normal breathing effort. ABDOMEN: Soft, nontender, nondistended. Normal bowel sounds. No hepatosplenomegaly. No ascites. No rebound. EXTREMITIES: He had edema and swelling at the left thigh area and hip with decreased range of motion in the left hip joint. He had bruises mainly in the left lateral hip area and the sacrum. No rash. No ulceration. With severe onychomycosis in both feet. SKIN: No rash. No hives. Red ecchymotic on the sacrum with bruises below the left eye. LABORATORY AND DIAGNOSTIC DATA: Labs showed white count of 24,600, hemoglobin of 10.4, platelet count of 343,000. BUN of 36, creatinine of 1.6. AST of 202, ALT of 77, alkaline phosphatase of 159. Total CK of 4993. Urinalysis showed +1 leukocyte esterase, wbc 5 to 10, red blood cells 5 to 10. IMAGING: Hip x-ray showed acute intertrochanteric fracture of the left femur as above. Head CT scan showed no acute intracranial bleed, mass effect, or edema. Moderate atrophy of the brain, chronic small vessel disease involving white matter tracts. Chest x-ray showed lucency at the right lateral base, may represent pneumothorax versus pulmonary blood, nonspecific increased interstitial markings most pronounced at the bases. Cervical spine CT scan showed no acute injury, mild spondylosis, chronic lung disease. ASSESSMENT AND RECOMMENDATION: 1. Sepsis with leukocytosis, source unclear at this point. We will send blood culture and urine culture and start vancomycin and cefepime empiric treatment. We will monitor his chest x-ray for any new infiltrates development. 2. UTI. We will send urine culture and start cefepime empiric coverage. 3. Severe onychomycosis in both legs. We will start Lamisil for 3 months' course of treatment. Follow up with medical officer psychiatry. 4. Hip fracture on the left. He will need orthopedic evaluation for open reduction and internal fixation. Continue pain control. 5. Acute kidney failure due to rhabdomyolysis and dehydration. Continue fluid and renally dose antibiotics as per pharmacy. 6. Rhabdomyolysis due to fall and muscle injury. Continue hydration. Monitor CK level. Nephrology is following. Thank you for the consult. ID will continue to follow. Kee Mcfarlane M.D. DR: Heron JOB#: [id number] CC: GREGOR
[2017-07-26 20:00] VITALS: BP 133/60
--- NOTE | 2017-07-26 20:15 | Consultation ---
DATE OF CONSULTATION: 07/26/2017 CONSULTING PHYSICIAN: Preet Spencer M.D. REFERRING PHYSICIAN: Ulysses Sarabia M.D. REASON FOR CONSULTATION: Preoperative clearance to femur surgery. HISTORY OF PRESENT ILLNESS: The patient is a 77-year-old gentleman with history of alcohol and tobacco use, who was brought to the emergency room after he had a fall after he drank alcohol. Fall was three to seven days ago. The patient was having pain to the left hip and left lower leg. The patient had not gotten up for about three days. The patient was brought to the emergency room and x-ray confirmed that the patient had rhabdomyolysis with acute intertrochanteric hip fracture. Dr. Zepeda was consulted and Cardiology consultation was obtained for preoperative evaluation. REVIEW OF SYSTEMS: Negative other than what was mentioned in history of present illness. PAST MEDICAL HISTORY: Negative. MEDICATION: At home, none. SOCIAL HISTORY: He drinks alcohol daily and smokes tobacco at least a pack a day. Denies illicit drug use. Lives at home. ALLERGIES: He has no known drug allergies. PHYSICAL EXAMINATION: VITAL SIGNS: Blood pressure 117/61, pulse 82, respirations 18, and temperature 97.7. HEAD AND NECK: Shows no JVD. LUNGS: Clear. CARDIOVASCULAR: Shows regular S1 and S2 with no gallop or murmur. ABDOMEN: Soft. EXTREMITIES: No pitting edema. LABORATORY AND DIAGNOSTIC DATA: His labs show white count of 24.6 went down to 19, hemoglobin 8.7, hematocrit of 26, platelet count 277,000. Sodium 135, potassium 3.5, BUN of 24, creatinine 1, and glucose of 154. His CK was 5000 initially and settled down to 3000. Troponin is 0.10 and 0.07. EKG shows sinus tachycardia with bifascicular block. ASSESSMENT AND PLAN: 1. Troponin elevation. This is likely due to the patient's rhabdomyolysis and very high CPK as well as CK-MB of 63. The patient denies any chest pain. Denies any prior myocardial infarction or known coronary artery disease. EKG does not show any active ischemia even though he has bifascicular block. We will repeat the EKG and get an echocardiogram and start the patient on low-dose beta-juan. The patient may need a stress test prior to hip surgery. 2. Rhabdomyolysis. BUN and creatinine is improving and renal failure is improving with creatinine of 1.621. 3. Hyponatremia, improved. 4. History of heavy alcohol and tobacco use. Thank you very much, Dr. Sarabia, for allowing me to participate in the care of this patient. Please do not hesitate to contact me for any questions regarding my evaluation. Preet Spencer M.D. DR: Sherri JOB#: [id number] CC:
[2017-07-26] MEDS: Metoprolol Tartrate 12.5mg TAB ORAL SCH (21:07)
[2017-07-26] MEDS: Vancomycin 1250mg/D5W 250ml IVPB SCH (23:09)
[2017-07-27] VITALS: BP 116/57
[2017-07-27] MEDS: Cefepime HCl 2 GM in D5W 55 ML IVPB SCH ×2 (02:18→17:06)
[2017-07-27 03:12] LABS: HEMATOCRIT 22.9 % (42.0-52.0); HEMOGLOBIN 7.6 G/DL (14.2-18.0); MEAN CORPUSCULAR VOLUME 109 FL (80-99); PLATELET COUNT 235 K/UL (150-450); RED CELL DISTRIBUTION WIDTH 15.1 % (11.6-14.8); WHITE BLOOD COUNT 11.6 K/UL (4.8-10.8)
[2017-07-27 03:18] LABS: ANION GAP 7 mmol/L (5-15); BLOOD UREA NITROGEN 12 mg/dL (7-18); CALCIUM 7.5 MG/DL (8.5-10.1); CARBON DIOXIDE 26 MMOL/L (21-32); CHLORIDE 102 MMOL/L (98-107); CREATININE 0.9 MG/DL (0.55-1.30); POTASSIUM 3.4 MMOL/L (3.5-5.1); SODIUM 135 MMOL/L (136-145)
[2017-07-27 03:38] LABS: CREATINE KINASE 1307 U/L (26-308)
[2017-07-27 04:00] VITALS: BP 117/64
[2017-07-27] MEDS: Heparin 5000 units/ml inj SUBQ SCH ×3 (05:31→22:00)
[2017-07-27] MEDS ORDERED: Lexiscan 0.4mg/5ml syringe IV SCH (06:00)
[2017-07-27 08:00] VITALS: BP 127/55
--- NOTE | 2017-07-27 08:27 | Pulmonology Progress Note ---
Assessment/Plan Assessment/Plan IMPRESSION: 1. Loculated right pneumothorax. 2. Hip fracture. 3. Severe bullous lung disease/emphysema DISCUSSION: I have reviewed his CT Chest which shows severe bullous lung disease + 5% PTX R base. He is at risk for another PTX as well as worsening of existing PTX. Positive pressure ventilation may exacerbate his condition; would recommend spinal anesthesia if at all possible Needs cardiac clearance and correction of anemia Will discuss with ortho Subjective Interval Events: No new events Constitutional: Reports: no symptoms HEENT: Repors: no symptoms Respiratory: Reports: no symptoms Cardiovascular: Reports: no symptoms Gastrointestinal/Abdominal: Reports: no symptoms Allergies: Coded Allergies: No Known Allergies (Unverified , 08/23/15) Objective Last 24 Hour Vital Signs Date Time Temp Pulse Resp B/P (MAP) Pulse Ox O2 Delivery O2 Flow Rate FiO2 07/27/17 04:00 98.6 78 20 117/64 97 Room Air 98.6 07/27/17 04:00 72 07/27/17 00:00 66 07/27/17 00:00 97.0 79 20 116/57 97 Room Air 97.0 07/26/17 21:07 80 134/73 07/26/17 20:00 90 07/26/17 20:00 97.4 90 20 133/60 95 Room Air 97.4 07/26/17 16:00 97.7 90 24 129/70 95 Room Air 97.7 07/26/17 16:00 83 07/26/17 12:00 97.7 82 18 117/61 95 Room Air 97.7 07/26/17 12:00 82 Intake and Output 07/26/17 07/27/17 19:00 07:00 Intake Total 1100 ml 1155.000 ml Output Total 200 ml 200 ml Balance 900 ml 955.000 ml IV Total 1100 ml 1155.000 ml Output Urine Total 200 ml 200 ml # Bowel Movements 1 General Appearance: no acute distress HEENT: normocephalic Respiratory/Chest: chest wall non-tender Cardiovascular: normal peripheral pulses, normal rate Abdomen: normal bowel sounds Microbiology Date/Time Source Procedure Growth Status 07/25/17 21:30 Blood Blood Culture - Preliminary NO GROWTH AFTER 24 HOURS Resulted 07/25/17 21:15 Blood Blood Culture - Preliminary NO GROWTH AFTER 24 HOURS Resulted Laboratory Tests 07/26/17 19:05: Troponin I 0.103H 07/27/17 02:55: Troponin I 0.127H, White Blood Count 11.6H, Red Blood Count 2.10L, Hemoglobin 7.6L, Hematocrit 22.9L, Mean Corpuscular Volume 109H, Mean Corpuscular Hemoglobin 36.2H, Mean Corpuscular Hemoglobin Concent 33.3, Red Cell Distribution Width 15.1H, Platelet Count 235, Mean Platelet Volume 6.3L, Neutrophils (%) (Auto) , Lymphocytes (%) (Auto) , Monocytes (%) (Auto) , Eosinophils (%) (Auto) , Basophils (%) (Auto) , Sodium Level 135L, Potassium Level 3.4L, Chloride Level 102, Carbon Dioxide Level 26, Anion Gap 7, Blood Urea Nitrogen 12, Creatinine 0.9, Estimat Glomerular Filtration Rate , Glucose Level 129H, Calcium Level 7.5L, Total Creatine Kinase 1307H, Pro-B-Type Natriuretic Peptide 1097H Current Medications Medications (Trade) Dose Ordered Sig/Leeroy Route PRN Reason Start Time Stop Time Status Last Admin Dose Admin Cefepime HCl 2 gm/ Dextrose 55 ml @ 110 mls/hr Q12H IVPB 07/26/17 14:30 08/02/17 14:29 07/27/17 02:18 Dextrose (Dextrose 50%) 25 ml STAT PRN IV Hypoglycemia 07/25/17 20:45 08/24/17 20:44 Dextrose (Dextrose 50%) 50 ml STAT PRN IV Hypoglycemia 07/25/17 20:45 08/24/17 20:44 Diphenhydramine HCl (Benadryl) 25 mg Q6H PRN IVP Restlessness 07/25/17 21:45 08/24/17 21:44 Folic Acid (Folate) 1 mg DAILY ORAL 07/26/17 09:00 08/25/17 08:59 07/26/17 08:41 Heparin Sodium (Porcine) (Heparin 5000 units/ml) 5,000 units EVERY 8 HOURS SUBQ 07/25/17 22:00 08/24/17 21:59 07/26/17 05:51 Metoprolol Tartrate (Lopressor) 12.5 mg Q12HR ORAL 07/26/17 21:00 08/25/17 20:59 07/26/17 21:07 Oxycodone/ Acetaminophen (Percocet 5-325) 1 tab Q4H PRN ORAL Mild Pain (Pain Scale 1-3) 07/25/17 21:45 08/01/17 21:44 07/26/17 19:52 Regadenoson (Lexiscan) 0.4 mg ONCE IV 07/27/17 06:00 07/27/17 23:59 Sodium Chloride 1,000 ml @ 100 mls/hr Q10H IVLG 07/25/17 21:44 08/24/17 21:43 07/26/17 20:00 Terbinafine HCl (LamISIL) 250 mg DAILY ORAL 07/27/17 09:00 08/03/17 08:59 Thiamine HCl (Vitamin B1) 100 mg DAILY ORAL 07/25/17 21:15 08/24/17 21:14 07/26/17 08:41 Vancomycin HCl (Vanco rx to dose) 1 ea DAILY PRN MISC Per rx protocol 07/26/17 13:15 08/25/17 13:14 Vancomycin HCl/ Dextrose 250 ml @ 166.667 mls/hr Q24H IVPB 07/26/17 23:00 07/31/17 22:59 07/26/17 23:09 Hay Crook MD July 27, 2017 08:27
--- NOTE | 2017-07-27 08:38 | Nephrology Progress Note ---
Assessment/Plan Assessment/Plan 1. Acute intertrochanteric fracture of left femur - appreciate Ortho assistance, Dr Zepeda. Await surgery once cleared by cardiology 2. Leukocytosis- appreciate ID assistance with Abx management 3. ACS- cardiology evaluation and clearance for surgery 4. DVT prophylaxsis- with heparing sub q q 8hrs 5. 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 Continue IVF's - resolved, Cr back to 1 6. Rhabdomyolysis- due to broken femur and immobiliztion for several days at home - IVF's, CPK down to 1307 7. Anemia- 2 unit PRBs transfusion, consult GI 8. Tiny right basilar pneumothorax. Extensive bullous emphysema - appreciate Pulmonary recc's Subjective Date patient seen: July 27, 2017 Time patient seen: 08:34 ROS Limited/Unobtainable: Yes Constitutional: Reports: weakness Allergies: Coded Allergies: No Known Allergies (Unverified , 08/23/15) All Systems: reviewed and negative except above Subjective Patient with granddaughter at bedside. Awaiting cardiac clearance for surgery Objective Last 24 Hour Vital Signs Date Time Temp Pulse Resp B/P (MAP) Pulse Ox O2 Delivery O2 Flow Rate FiO2 07/27/17 04:00 98.6 78 20 117/64 97 Room Air 98.6 07/27/17 04:00 72 07/27/17 00:00 66 07/27/17 00:00 97.0 79 20 116/57 97 Room Air 97.0 07/26/17 21:07 80 134/73 07/26/17 20:00 90 07/26/17 20:00 97.4 90 20 133/60 95 Room Air 97.4 07/26/17 16:00 97.7 90 24 129/70 95 Room Air 97.7 07/26/17 16:00 83 07/26/17 12:00 97.7 82 18 117/61 95 Room Air 97.7 07/26/17 12:00 82 Intake and Output 07/26/17 07/27/17 19:00 07:00 Intake Total 1100 ml 1155.000 ml Output Total 200 ml 200 ml Balance 900 ml 955.000 ml IV Total 1100 ml 1155.000 ml Output Urine Total 200 ml 200 ml # Bowel Movements 1 Laboratory Tests 07/26/17 19:05: Troponin I 0.103H 07/27/17 02:55: Troponin I 0.127H, White Blood Count 11.6H, Red Blood Count 2.10L, Hemoglobin 7.6L, Hematocrit 22.9L, Mean Corpuscular Volume 109H, Mean Corpuscular Hemoglobin 36.2H, Mean Corpuscular Hemoglobin Concent 33.3, Red Cell Distribution Width 15.1H, Platelet Count 235, Mean Platelet Volume 6.3L, Neutrophils (%) (Auto) , Lymphocytes (%) (Auto) , Monocytes (%) (Auto) , Eosinophils (%) (Auto) , Basophils (%) (Auto) , Sodium Level 135L, Potassium Level 3.4L, Chloride Level 102, Carbon Dioxide Level 26, Anion Gap 7, Blood Urea Nitrogen 12, Creatinine 0.9, Estimat Glomerular Filtration Rate , Glucose Level 129H, Calcium Level 7.5L, Total Creatine Kinase 1307H, Pro-B-Type Natriuretic Peptide 1097H Height (Feet): 5 Height (Inches): 8.00 Weight (Pounds): 150 General Appearance: WD/WN, no apparent distress EENT: PERRL/EOMI, normal ENT inspection Neck: non-tender, normal alignment Cardiovascular: normal peripheral pulses, normal rate, regular rhythm Respiratory/Chest: chest wall non-tender, lungs clear, normal breath sounds Abdomen: normal bowel sounds, non tender, soft Edema: no edema noted Arm (L), no edema noted Arm (R), no edema noted Leg (L), no edema noted Leg (R), no edema noted Pedal (L), no edema noted Pedal (R), no edema noted Generalized Tien Nielsen M.D. July 27, 2017 08:38
[2017-07-27] MEDS: Thiamine 100mg tab ORAL SCH (08:56)
[2017-07-27] MEDS: Metoprolol Tartrate 12.5mg TAB ORAL SCH ×2 (08:57→22:31)
--- NOTE | 2017-07-27 10:22 | GI Initial Consult Note ---
History of Present Illness General Date patient seen: July 27, 2017 Time patient seen: 14:35 Reason for Hospitalization: Multiple Trauma/Fall Referring physician: CHRISTEL VIDES Reason for Consultation: ANEMIA Present Illness HPI 77-year-old male with history of tobacco and alcohol use, no other medical problems, presents with left hip pain as well as bilateral shoulder pain status post fall 3 days ago He also reports pain on the entire left side of his body, and reports no weakness, just pain to his left body mainly his hip Patient lives with his , and he is here with his granddaughter who reports she came to visit him today and he was laying on the ground His granddaughter reports that the patient's never mentioned to them that he had had a fall, but apparently she's been changing his pants and he hasn't gotten up for the past 3 days Patient reports drinking heavily, but his last drink was one week ago Patient and his granddaughter report that he is not on any medications, and is otherwise a healthy gentleman with no medical problems at all just a habits of tobacco and alcohol use He reports that he tripped and fell, and never had any weakness or anything that caused it nor a loss of consciousness It is unclear to the granddaughter why the nor the patient thought to call anyone for help GI consulted for anemia. Pt seen, awake A&Ox4 NAD with granddaughter at bedside. No noted active s/sx of bleeding. Labs reviewed show downtrending Hgb over the past 3 days. In addition, noted abnormal LFTs with elevated AST. Last EGD/colonoscopy was approximately 4 years ago with unknown results. Patient is lifelong tobacco and ETOH user. He is pending stress test today for cardiac clearance to have a ORIF done to his left hip. Home Meds Reported Medications No Known Medications* (NKM - No Known Medications*) ., 0 ., 0 Refills 08/23/15 Med list reviewed/reconciled: Yes Allergies: Coded Allergies: No Known Allergies (Unverified , 08/23/15) Patient History History Provided By: Patient, Family Member PM Narrative Past Medical History: see triage record Reviewed Nursing Documentation: PMH: Agreed; PSxH: Agreed Nursing Documentation-PM Past Medical History: No History, Except For Social History: Reports: smoking, alcohol use Review of Systems All Other Systems: negative except mentioned in HPI Physical Exam Vital Signs Date Time Temp Pulse Resp B/P (MAP) Pulse Ox O2 Delivery O2 Flow Rate FiO2 07/25/17 15:27 104 16 114/64 98 Room Air 07/25/17 20:15 98.3 98.3 Sp02 EP Interpretation: reviewed, normal Labs Laboratory Tests Test 07/26/17 19:05 07/27/17 02:55 Troponin I 0.103 ng/mL (0.000-0.056) 0.127 ng/mL (0.000-0.056) White Blood Count 11.6 K/UL (4.8-10.8) H Red Blood Count 2.10 M/UL (4.70-6.10) L Hemoglobin 7.6 G/DL (14.2-18.0) L Hematocrit 22.9 % (42.0-52.0) L Mean Corpuscular Volume 109 FL (80-99) H Mean Corpuscular Hemoglobin 36.2 PG (27.0-31.0) H Mean Corpuscular Hemoglobin Concent 33.3 G/DL (32.0-36.0) Red Cell Distribution Width 15.1 % (11.6-14.8) H Platelet Count 235 K/UL (150-450) Mean Platelet Volume 6.3 FL (6.5-10.1) L Neutrophils (%) (Auto) % (45.0-75.0) Lymphocytes (%) (Auto) % (20.0-45.0) Monocytes (%) (Auto) % (1.0-10.0) Eosinophils (%) (Auto) % (0.0-3.0) Basophils (%) (Auto) % (0.0-2.0) Sodium Level 135 MMOL/L (136-145) L Potassium Level 3.4 MMOL/L (3.5-5.1) L Chloride Level 102 MMOL/L (98-107) Carbon Dioxide Level 26 MMOL/L (21-32) Anion Gap 7 mmol/L (5-15) Blood Urea Nitrogen 12 mg/dL (7-18) Creatinine 0.9 MG/DL (0.55-1.30) Estimat Glomerular Filtration Rate mL/min (>60) Glucose Level 129 MG/DL (74-106) H Calcium Level 7.5 MG/DL (8.5-10.1) L Total Creatine Kinase 1307 U/L (26-308) H Pro-B-Type Natriuretic Peptide 1097 pg/mL (0-125) H General Appearance: well appearing, no apparent distress, alert Head: normocephalic EENT: PERRL/EOMI, normal ENT inspection Neck: supple Respiratory: normal breath sounds, no respiratory distress Cardiovascular: normal rate Gastrointestinal: normal inspection, non tender, soft, normal bowel sounds, non -distended Rectal: deferred Genitourinary: deferred Musculoskeletal: normal inspection, back normal Neurologic: normal inspection, alert, oriented x3, responsive Psychiatric: normal inspection, judgement/insight normal, memory normal Skin: normal inspection, normal color, no rash, warm/dry, palpation normal, well hydrated Lymphatic: normal inspection, no adenopathy Current Medications Current Medications Medications (Trade) Dose Ordered Sig/Leeroy Route PRN Reason Start Time Stop Time Status Last Admin Dose Admin Cefepime HCl 2 gm/ Dextrose 55 ml @ 110 mls/hr Q12H IVPB 07/26/17 14:30 08/02/17 14:29 07/27/17 02:18 Dextrose (Dextrose 50%) 25 ml STAT PRN IV Hypoglycemia 07/25/17 20:45 08/24/17 20:44 Dextrose (Dextrose 50%) 50 ml STAT PRN IV Hypoglycemia 07/25/17 20:45 08/24/17 20:44 Diphenhydramine HCl (Benadryl) 25 mg Q6H PRN IVP Restlessness 07/25/17 21:45 08/24/17 21:44 Folic Acid (Folate) 1 mg DAILY ORAL 07/26/17 09:00 08/25/17 08:59 07/27/17 08:56 Heparin Sodium (Porcine) (Heparin 5000 units/ml) 5,000 units EVERY 8 HOURS SUBQ 07/25/17 22:00 08/24/17 21:59 07/26/17 05:51 Metoprolol Tartrate (Lopressor) 12.5 mg Q12HR ORAL 07/26/17 21:00 08/25/17 20:59 07/26/17 21:07 Oxycodone/ Acetaminophen (Percocet 5-325) 1 tab Q4H PRN ORAL Mild Pain (Pain Scale 1-3) 07/25/17 21:45 5/16/18 21:44 07/26/17 19:52 Regadenoson (Lexiscan) 0.4 mg ONCE IV 07/27/17 06:00 07/27/17 23:59 Sodium Chloride 1,000 ml @ 100 mls/hr Q10H IVLG 07/25/17 21:44 08/24/17 21:43 07/26/17 20:00 Terbinafine HCl (LamISIL) 250 mg DAILY ORAL 07/27/17 09:00 08/03/17 08:59 07/27/17 08:56 Thiamine HCl (Vitamin B1) 100 mg DAILY ORAL 07/25/17 21:15 08/24/17 21:14 07/27/17 08:56 Vancomycin HCl (Vanco rx to dose) 1 ea DAILY PRN MISC Per rx protocol 07/26/17 13:15 08/25/17 13:14 Vancomycin HCl/ Dextrose 250 ml @ 166.667 mls/hr Q24H IVPB 07/26/17 23:00 07/31/17 22:59 07/26/17 23:09 GI: Plan Problems: (1) Anemia (2) Abnormal LFTs (3) Encephalopathy (4) Alcohol intoxication Plan severe anemia requiring blood transfusion with no active s/sx of bleed, receiving 2 units at this moment pending stress test today, needs clearance for ORIF Hx of EGD/colonoscopy x 4 years anemia work up OB stool r/o GI bleed monitor H&H, prn transfusions bowel regime ppi abdominal U/S trend LFTs fu labs, hepatitis panel outpatient GI procedures Discussed with Dr. Villegas. Thank you for this patient referral, we will follow. The patient was seen and examined at bedside and all new and available data was reviewed in the patients chart. I agree with the above findings, impression and plan. (Patient seen earlier today. Signature stamp does not reflect patient encounter time.). - MD Gabriela [facility] July 27, 2017 10:22
--- NOTE | 2017-07-27 10:57 | Cardiology Report ---
APPROVED REPORT EXAM: Two-dimensional and M-mode echocardiogram with Doppler and color Doppler. INDICATION Chest Pain M-Mode DIMENSIONS IVSd1.0 (0.7-1.1cm)Left Atrium (MM)3.0 (1.6-4.0cm) LVDd4.6 (3.5-5.6cm)Aortic Root3.8 (2.0-3.7cm) PWd1.0 (0.7-1.1cm)Aortic Cusp Exc.1.8 (1.5-2.0cm) IVSs1.5 cm LVDs3.3 (2.5-4.0cm) PWs1.5 cm Technically difficult study due to poor acoustical windows. Left ventricular ejection fraction estimated to be 55-60 %. No evidence of left ventricular hypertrophy. Small pericardial effusion or fat along with RV wall present . All other cardiac chamber sizes are within normal limits. Focal aortic valve sclerosis with adequate cusp excursion. Mildly Thickened mitral valve leaflets with normal excursion. Mildly Mitral annulus and aortic root calcification. Normal pulmonic valve structure. Normal tricuspid valve structure. IVC at normal size with physiologic collapse. A color flow and spectral Doppler study was performed and revealed: No aortic regurgitation. Trace mitral regurgitation. Mitral diastolic velocities suggest reduced left ventricular relaxation c/w mild LV diastolic dysfunction (Grade I ) Trace tricuspid regurgitation. Tricuspid systolic velocities suggests peak right ventricular systolic pressure of 17mmHg, No Pulmonic regurgitation present.
[2017-07-27 12:00] VITALS: BP 133/71
--- NOTE | 2017-07-27 13:56 | Infectious Diseases Prog Note ---
Assessment/Plan Problems: (1) Sepsis Assessment & Plan: await blood culture and continue vancomycin with cefepime empirically pending culture results (2) UTI (urinary tract infection) Assessment & Plan: await urine culture , continue cefepime empirically (3) Onychomycosis Assessment & Plan: continue lamasil for 3 months (4) Hip fracture, left Assessment & Plan: had ortho eval for ORIF , pending cardiac clearance , continue pain control (5) GENTRY (acute kidney injury) Assessment & Plan: due to the above, continue hydration and renally dosed antibiotics, pharmacy is following Subjective Constitutional: Reports: no symptoms HEENT: Reports: no symptoms Respiratory: Reports: no symptoms Breasts: Reports: no symptoms Cardiovascular: Reports: no symptoms Gastrointestinal/Abdominal: Reports: no symptoms Genitourinary: Reports: no symptoms Neurologic: Reports: no symptoms Psychiatric: Reports: no symptoms Skin: Reports: no symptoms Endocrine: Reports: no symptoms Hematologic: Reports: no symptoms Musculoskeletal: Reports: pain, swelling Allergies: Coded Allergies: No Known Allergies (Unverified , 08/23/15) Subjective left hip pain and swelling Objective Vital Signs Last 24 Hour Vital Signs Date Time Temp Pulse Resp B/P (MAP) Pulse Ox O2 Delivery O2 Flow Rate FiO2 07/27/17 12:00 98.0 71 16 133/71 97 Room Air 98.0 07/27/17 12:00 73 07/27/17 09:00 74 07/27/17 08:57 75 127/55 07/27/17 08:00 97.9 75 20 127/55 97 Room Air 97.9 07/27/17 04:00 98.6 78 20 117/64 97 Room Air 98.6 07/27/17 04:00 72 07/27/17 00:00 66 07/27/17 00:00 97.0 79 20 116/57 97 Room Air 97.0 07/26/17 21:07 80 134/73 07/26/17 20:00 90 07/26/17 20:00 97.4 90 20 133/60 95 Room Air 97.4 07/26/17 16:00 97.7 90 24 129/70 95 Room Air 97.7 07/26/17 16:00 83 Height (Feet): 5 Height (Inches): 8.00 Weight (Pounds): 150 General Appearance: WD/WN, no acute distress HEENT: normocephalic, atraumatic, anicteric, mucous membranes moist, PERRL Respiratory/Chest: chest wall non-tender, lungs clear, normal breath sounds, no respiratory distress, no accessory muscle use Cardiovascular: normal peripheral pulses, normal rate, regular rhythm, no gallop/murmur, no JVD Abdomen: normal bowel sounds, soft, non tender, no organomegaly, non distended , no mass, no scars Extremities: no cyanosis, no clubbing Skin: no rash, no lesions, no ulcers Neurologic/Psychiatric: alert, oriented x 3, responsive Lymphatic: no neck adenopathy, no groin adenopathy Musculoskeletal: other - left hip swelling and tenderness with decreased range of motion Microbiology Date/Time Source Procedure Growth Status 07/25/17 21:30 Blood Blood Culture - Preliminary NO GROWTH AFTER 24 HOURS Resulted 07/25/17 21:15 Blood Blood Culture - Preliminary NO GROWTH AFTER 24 HOURS Resulted 07/26/17 15:10 Indwelling Cath Urine Culture - Preliminary NO GROWTH Resulted Laboratory Tests Test 07/26/17 19:05 07/27/17 02:55 Troponin I 0.103 ng/mL (0.000-0.056) 0.127 ng/mL (0.000-0.056) White Blood Count 11.6 K/UL (4.8-10.8) H Red Blood Count 2.10 M/UL (4.70-6.10) L Hemoglobin 7.6 G/DL (14.2-18.0) L Hematocrit 22.9 % (42.0-52.0) L Mean Corpuscular Volume 109 FL (80-99) H Mean Corpuscular Hemoglobin 36.2 PG (27.0-31.0) H Mean Corpuscular Hemoglobin Concent 33.3 G/DL (32.0-36.0) Red Cell Distribution Width 15.1 % (11.6-14.8) H Platelet Count 235 K/UL (150-450) Mean Platelet Volume 6.3 FL (6.5-10.1) L Neutrophils (%) (Auto) % (45.0-75.0) Lymphocytes (%) (Auto) % (20.0-45.0) Monocytes (%) (Auto) % (1.0-10.0) Eosinophils (%) (Auto) % (0.0-3.0) Basophils (%) (Auto) % (0.0-2.0) Sodium Level 135 MMOL/L (136-145) L Potassium Level 3.4 MMOL/L (3.5-5.1) L Chloride Level 102 MMOL/L (98-107) Carbon Dioxide Level 26 MMOL/L (21-32) Anion Gap 7 mmol/L (5-15) Blood Urea Nitrogen 12 mg/dL (7-18) Creatinine 0.9 MG/DL (0.55-1.30) Estimat Glomerular Filtration Rate mL/min (>60) Glucose Level 129 MG/DL (74-106) H Calcium Level 7.5 MG/DL (8.5-10.1) L Total Creatine Kinase 1307 U/L (26-308) H Pro-B-Type Natriuretic Peptide 1097 pg/mL (0-125) H Current Medications Medications (Trade) Dose Ordered Sig/Leeroy Route PRN Reason Start Time Stop Time Status Last Admin Dose Admin Cefepime HCl 2 gm/ Dextrose 55 ml @ 110 mls/hr Q12H IVPB 07/26/17 14:30 08/02/17 14:29 07/27/17 02:18 Dextrose (Dextrose 50%) 25 ml STAT PRN IV Hypoglycemia 07/25/17 20:45 08/24/17 20:44 Dextrose (Dextrose 50%) 50 ml STAT PRN IV Hypoglycemia 07/25/17 20:45 08/24/17 20:44 Diphenhydramine HCl (Benadryl) 25 mg Q6H PRN IVP Restlessness 07/25/17 21:45 08/24/17 21:44 Folic Acid (Folate) 1 mg DAILY ORAL 07/26/17 09:00 08/25/17 08:59 07/27/17 08:56 Heparin Sodium (Porcine) (Heparin 5000 units/ml) 5,000 units EVERY 8 HOURS SUBQ 07/25/17 22:00 08/24/17 21:59 07/26/17 05:51 Metoprolol Tartrate (Lopressor) 12.5 mg Q12HR ORAL 07/26/17 21:00 08/25/17 20:59 07/26/17 21:07 Oxycodone/ Acetaminophen (Percocet 5-325) 1 tab Q4H PRN ORAL Mild Pain (Pain Scale 1-3) 07/25/17 21:45 08/01/17 21:44 07/26/17 19:52 Regadenoson (Lexiscan) 0.4 mg ONCE IV 07/27/17 06:00 07/27/17 23:59 Sodium Chloride 1,000 ml @ 100 mls/hr Q10H IVLG 07/25/17 21:44 08/24/17 21:43 07/26/17 20:00 Terbinafine HCl (LamISIL) 250 mg DAILY ORAL 07/27/17 09:00 08/03/17 08:59 07/27/17 08:56 Thiamine HCl (Vitamin B1) 100 mg DAILY ORAL 07/25/17 21:15 08/24/17 21:14 07/27/17 08:56 Vancomycin HCl (Vanco rx to dose) 1 ea DAILY PRN MISC Per rx protocol 07/26/17 13:15 08/25/17 13:14 Vancomycin HCl/ Dextrose 250 ml @ 166.667 mls/hr Q24H IVPB 07/26/17 23:00 07/31/17 22:59 07/26/17 23:09 Kee Mcfarlane M.D. July 27, 2017 13:56
--- NOTE | 2017-07-27 14:34 | Cardiac Electrophysiology PN ---
Assessment/Plan Assessment/Plan 1. Troponin elevation. This is likely due to the patient's rhabdomyolysis and very high CPK as well as CK-MB of 63. The patient denies any chest pain. Denies any prior myocardial infarction or known coronary artery disease. EKG does not show any active ischemia even though he has bifascicular block. EF 55% Continue low-dose beta-juan. Stress test after blood transfusion 2. Rhabdomyolysis. BUN and creatinine is improving and renal failure is improving with creatinine of 1.621. 3. Hyponatremia, improved. 4. History of heavy alcohol and tobacco use. 5. Anemia with Hb 10 down to 7.6. Getting 2 units PRBC Subjective Subjective Getting blood transfusion. Hopefully stress test afterwards. RN and grand daughter at bedside. Objective Last 24 Hour Vital Signs Date Time Temp Pulse Resp B/P (MAP) Pulse Ox O2 Delivery O2 Flow Rate FiO2 07/27/17 12:00 98.0 71 16 133/71 97 Room Air 98.0 07/27/17 12:00 73 07/27/17 09:00 74 07/27/17 08:57 75 127/55 07/27/17 08:00 97.9 75 20 127/55 97 Room Air 97.9 07/27/17 04:00 98.6 78 20 117/64 97 Room Air 98.6 07/27/17 04:00 72 07/27/17 00:00 66 07/27/17 00:00 97.0 79 20 116/57 97 Room Air 97.0 07/26/17 21:07 80 134/73 07/26/17 20:00 90 07/26/17 20:00 97.4 90 20 133/60 95 Room Air 97.4 07/26/17 16:00 97.7 90 24 129/70 95 Room Air 97.7 07/26/17 16:00 83 Extremities: inflammation Intake and Output 07/26/17 07/27/17 19:00 07:00 Intake Total 1100 ml 1155.000 ml Output Total 200 ml 200 ml Balance 900 ml 955.000 ml IV Total 1100 ml 1155.000 ml Output Urine Total 200 ml 200 ml # Bowel Movements 1 Laboratory Tests Test 07/26/17 19:05 07/27/17 02:55 Troponin I 0.103 ng/mL (0.000-0.056) 0.127 ng/mL (0.000-0.056) White Blood Count 11.6 K/UL (4.8-10.8) H Red Blood Count 2.10 M/UL (4.70-6.10) L Hemoglobin 7.6 G/DL (14.2-18.0) L Hematocrit 22.9 % (42.0-52.0) L Mean Corpuscular Volume 109 FL (80-99) H Mean Corpuscular Hemoglobin 36.2 PG (27.0-31.0) H Mean Corpuscular Hemoglobin Concent 33.3 G/DL (32.0-36.0) Red Cell Distribution Width 15.1 % (11.6-14.8) H Platelet Count 235 K/UL (150-450) Mean Platelet Volume 6.3 FL (6.5-10.1) L Neutrophils (%) (Auto) % (45.0-75.0) Lymphocytes (%) (Auto) % (20.0-45.0) Monocytes (%) (Auto) % (1.0-10.0) Eosinophils (%) (Auto) % (0.0-3.0) Basophils (%) (Auto) % (0.0-2.0) Sodium Level 135 MMOL/L (136-145) L Potassium Level 3.4 MMOL/L (3.5-5.1) L Chloride Level 102 MMOL/L (98-107) Carbon Dioxide Level 26 MMOL/L (21-32) Anion Gap 7 mmol/L (5-15) Blood Urea Nitrogen 12 mg/dL (7-18) Creatinine 0.9 MG/DL (0.55-1.30) Estimat Glomerular Filtration Rate mL/min (>60) Glucose Level 129 MG/DL (74-106) H Calcium Level 7.5 MG/DL (8.5-10.1) L Total Creatine Kinase 1307 U/L (26-308) H Pro-B-Type Natriuretic Peptide 1097 pg/mL (0-125) H Microbiology Date/Time Source Procedure Growth Status 07/25/17 21:30 Blood Blood Culture - Preliminary NO GROWTH AFTER 24 HOURS Resulted 07/25/17 21:15 Blood Blood Culture - Preliminary NO GROWTH AFTER 24 HOURS Resulted 07/26/17 15:10 Indwelling Cath Urine Culture - Preliminary NO GROWTH Resulted Objective HEAD AND NECK: Shows no JVD. LUNGS: Clear. CARDIOVASCULAR: Shows regular S1 and S2 with no gallop or murmur. ABDOMEN: Soft. EXTREMITIES: No pitting edema. Preet Spencer MD July 27, 2017 14:34
[2017-07-27 15:42] LABS: BASOPHILS % (AUTO) 0.3 % (0.0-2.0); EOSINOPHILS % (AUTO) 0.2 % (0.0-3.0); HEMATOCRIT 31.9 % (42.0-52.0); LYMPHOCYTES % (AUTO) 11.7 % (20.0-45.0); MEAN CORPUSCULAR VOLUME 100 FL (80-99); MONOCYTES % (AUTO) 4.6 % (1.0-10.0); NEUTROPHILS % (AUTO) 83.3 % (45.0-75.0); PLATELET COUNT 220 K/UL (150-450); RED BLOOD COUNT 3.18 M/UL (4.70-6.10); RED CELL DISTRIBUTION WIDTH 17.8 % (11.6-14.8); WHITE BLOOD COUNT 11.8 K/UL (4.8-10.8)
[2017-07-27 16:00] VITALS: BP 142/73
[2017-07-27 20:00] VITALS: BP 147/81
[2017-07-27] MEDS: Vancomycin 1250mg/D5W 250ml IVPB SCH (22:32)
--- NOTE | 2017-07-27 23:16 | Progress Note ---
DATE: 07/26/2017 HISTORY OF PRESENT ILLNESS: There are no issues overnight. OBJECTIVE: GENERAL: The patient is alert and oriented. He is resting comfortably at this time in bed. EXTREMITIES: Left hip examination shows pain with internal and external rotation. Posterior calf is soft. Neurovascularly is normal. There is a left intertrochanteric hip fracture. DISCUSSION: At this point, I had a lengthy conversation with Dr. Spencer, who feels that from a cardiac point of view, the patient should be stable if he does want to get echocardiogram. We are going to try to do is potential echocardiogram later on today or tomorrow in anticipation of hopefully clearing him for surgery on Sunday. We will make him NPO after midnight in anticipation of surgery. In the meantime, he is on strict bed rest. He will maintained on SCDs for DVT prophylaxis. We will continue to monitor him from clinical point of view. Milo Zepeda M.D. DR: JENN JOB#: [id number] CC:
[2017-07-28] VITALS (14 sets, daily range): BP systolic 114–187; BP diastolic 61–98
--- NOTE | 2017-07-28 00:16 | Progress Note ---
DATE: 07/27/2017 SUBJECTIVE: The patient is being preop for potential surgery. Later on today, he was noted to have anemia and a drop in his hemoglobin. He has no shortness of breath. He is resting comfortably in examining bed. He has pain with external rotation. Posterior calf is soft. Neurovascular is normal. ASSESSMENT: Left hip trochanteric fracture. DISCUSSION: At this point, we are going to do is give him two units of blood and repeat the hemoglobin. If it is acceptable, then we may consider proceeding with a stress test. Based on the stress test results that if it is clear, then we can proceed with an open reduction and internal fixation of left hip, otherwise we will continue his appropriate medical management in preparation for surgery later on. In the meantime, he is on strict bed rest. He is on SCDs for DVT prophylaxis. I would not recommend formal DVT prophylaxis, given his anemia and recent blood transfusion. Milo Zepeda M.D. DR: KIMBER JOB#: [id number] CC: GREGOR
--- NOTE | 2017-07-28 01:01 | Consultation ---
DATE OF CONSULTATION: 07/25/2017 ORTHOPEDIC CONSULTATION HISTORY OF PRESENT ILLNESS: The patient is a pleasant 77-year-old gentleman, who is with his mother and sustained the injury where he kind of bumped his knee. It is there for approximately three days. He has more difficulty ambulating. He was brought to the ER, diagnosed with right hip fracture. Orthopedic consultation obtained for further care and recommendation. PAST MEDICAL HISTORY: Reviewed from the intake chart. PAST SURGICAL HISTORY: Reviewed from the intake chart. MEDICATIONS: Reviewed from the intake chart. PHYSICAL EXAMINATION: GENERAL: The patient speaks Bel[place]ian. He is resting comfortably in exam bed. VITAL SIGNS: Afebrile. Stable vital signs. EXTREMITIES: The right hip examination shows pain with internal and external rotation. Posterior calf is soft. Neurovascular is normal. ASSESSMENT: Left intertrochanteric hip fracture. DISCUSSION: At this point, we are going to medically optimized given his rhabdomyolysis as a result of his injury and we have to improve his underlying metabolic state. Hopefully, over the next 48 hours, we can do them and potentially proceed with surgery. In the meantime strict bed rest, DVT prophylaxis as per the PMD. We will continue appropriate medical clearance. Milo Zepeda M.D. DR: Jackie JOB#: [id number] CC: GREGOR
[2017-07-28] MEDS: Cefepime HCl 2 GM in D5W 55 ML IVPB SCH ×2 (06:00→17:04)
[2017-07-28] MEDS: Heparin 5000 units/ml inj SUBQ SCH ×3 (06:00→22:12)
[2017-07-28] MEDS ORDERED: cloNIDine 1000mcg/10ml inj ONE (07:52)
[2017-07-28] MEDS ORDERED: Bupivacaine 0.5% Inj 30 ml vial INJ ONE (07:53)
[2017-07-28] MEDS ORDERED: Lidocaine 1% MPF 10mg/ml 5ml ONE (07:58)
[2017-07-28] MEDS ORDERED: Lidocaine 1% 10mg/ml/Epi 0.005mg/ml 30ml vial INJ ONE (07:58)
[2017-07-28] MEDS ORDERED: Bupivacaine 0.25% Inj 30ml INJ ONE (07:58)
[2017-07-28] MEDS ORDERED: Propofol 200mg/20ml IV ONE ×2 (07:58→08:02)
[2017-07-28] MEDS ORDERED: Sodium Chloride 10ml vial INJ ONE ×2 (07:59→08:00)
[2017-07-28] MEDS ORDERED: NeoSporin Gu Irrig 1ml Amp IRRIG ONE (07:59)
[2017-07-28] MEDS ORDERED: Bacitracin 50000 Units Vial ONE (07:59)
[2017-07-28] MEDS ORDERED: Lidocaine 1% Plain 30 ml INJ ONE (08:02)
[2017-07-28] MEDS ORDERED: Alfentanil 2ml Inj ONE (08:06)
[2017-07-28] MEDS ORDERED: Midazolam 2mg/2ml Inj ONE (08:06)
[2017-07-28] MEDS ORDERED: LR 1000ml 1,000 ML IVLG SCH (08:09)
--- NOTE | 2017-07-28 08:13 | 48 Hour Post Anesthesia Eval ---
Post Anesthesia Evaluation Procedure: ORIF L HIP Date of Evaluation: July 28, 2017 Time of Evaluation: 11:46 Blood Pressure Systolic: 165 0: 72 Pulse Rate: 71 Respiratory Rate: 18 Temperature (Fahrenheit): 98.2 O2 Sat by Pulse Oximetry: 100 Airway: patent Nausea: No Vomiting: No Pain Intensity: 1 Hydration Status: adequate Cardiopulmonary Status: Stable Mental Status/LOC: patient returned to baseline Follow-up Care/Observations: 0 Post-Anesthesia Complications: 0 Follow-up care needed: N/A Duane Del oRsario MD July 28, 2017 08:13
--- NOTE | 2017-07-28 08:13 | Immediate Post-Op Evaluation ---
Immediate Post-Op Evalulation Immediate Post-Op Evalulation Procedure: ORIF L HIP Date of Evaluation: July 28, 2017 Time of Evaluation: 09:39 IV Fluids: 300 LR Blood Products: 0 Estimated Blood Loss: 50 Urinary Output: 0 Blood Pressure Systolic: 179 Blood Pressure Diastolic: 77 Pulse Rate: 82 Respiratory Rate: 16 O2 Sat by Pulse Oximetry: 100 Temperature (Fahrenheit): 97.8 Pain Score (1-10): 1 Nausea: No Vomiting: No Complications 0 Patient Status: awake, reacts, patent, none Hydration Status: adequate Dru Gram Ancef IV Given Within 1 Hr of Incision: Yes Time Given: 08:16 Duane Del Rosario MD July 28, 2017 08:13
[2017-07-28] MEDS ORDERED: Atropine Inj 1mg/10ml Syr IV PRN (08:15)
[2017-07-28] MEDS ORDERED: oxyCODONE HCL/Acetaminophen 5/325mg ORAL PRN (08:15)
[2017-07-28] MEDS ORDERED: Labetalol 5mg/ml 20ml vial IV PRN (08:15)
[2017-07-28] MEDS ORDERED: Norco 5mg/325mg tab ORAL PRN (08:15)
[2017-07-28] MEDS ORDERED: Midazolam 2mg/2ml Inj IVP PRN (08:15)
[2017-07-28] MEDS ORDERED: fentaNYL 100 mcg/2 mL IV PRN (08:15)
[2017-07-28] MEDS ORDERED: HYDROcodone/Acetamin 7.5/325 tab ORAL PRN ×2 (08:15→08:30)
[2017-07-28] MEDS ORDERED: DiphenhydrAMINE 50mg/ml Inj IVP PRN (08:15)
[2017-07-28] MEDS ORDERED: Metoclopramide 10mg/2ml Inj IVP PRN (08:15)
[2017-07-28] MEDS ORDERED: LORazepam Inj 2mg/ml 1ml IV PRN (08:15)
--- NOTE | 2017-07-28 08:21 | Operative Note - PDOC ---
Operative Note Operative Note Pre-op Diagnosis: left hip fx Procedure: left hip orif Post-op Diagnosis: same as pre-op plus Operative Findings: consistent w/pre-op dx studies Anesthesia: regional Specimen: none Complications: none Condition: stable Estimated Blood Loss: none Implant(s) used?: Yes Milo Zepeda MD July 28, 2017 08:21
--- NOTE | 2017-07-28 08:21 | Pre-Procedure Note/Attestation ---
Pre-Procedure Note/Attestation Complete Prior to Procedure Planned Procedure: left Procedure Narrative: hip orif Indications for Procedure Pre-Operative Diagnosis: left hip fx Attestation I attest that I discussed the nature of the procedure; its benefits; risks and complications; and alternatives (and the risks and benefits of such alternatives ), prior to the procedure, with the patient (or the patient's legal personal financial representative). I attest that, if there was a reasonable possibility of needing a blood transfusion, the patient (or the patient's legal personal financial representative) was given the [facility] standardized written summary, pursuant to the [place] Blood Safety Act ([place] Health and Safety Code # 1645, as amended). I attest that I re-evaluated the patient just prior to the surgery and that there has been no change in the patient's H&P, except as documented below: Milo Zepeda MD July 28, 2017 08:21
[2017-07-28] MEDS ORDERED: Milk of Magnesia 30ml Ud ORAL PRN (08:30)
--- NOTE | 2017-07-28 08:43 | Nephrology Progress Note ---
Assessment/Plan Assessment/Plan 1. Acute intertrochanteric fracture of left femur - patient in surgery 2. Leukocytosis- resolved, Abx mgmt per ID 3. ACS- cleared for surgery 4. DVT prophylaxsis- with heparing sub q q 8hrs 5. 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 Continue IVF's, resolved , Cr back to 1 6. Rhabdomyolysis- due to broken femur and immobiliztion for several days at home - IVF's, CPK improved, am labs pending 7. Anemia- 2 unit PRBs transfusion, appreciate GI consult 8. Tiny right basilar pneumothorax. Extensive bullous emphysema - appreciate Pulmonary recc's Subjective Allergies: Coded Allergies: No Known Allergies (Unverified , 08/23/15) Subjective Patient in surgery Objective Last 24 Hour Vital Signs Date Time Temp Pulse Resp B/P (MAP) Pulse Ox O2 Delivery O2 Flow Rate FiO2 07/28/17 04:00 69 07/28/17 04:00 97.7 71 16 137/82 97 97.7 07/28/17 00:00 98.4 88 18 140/71 96 98.4 07/28/17 00:00 87 07/27/17 22:31 81 147/81 07/27/17 20:00 97.8 81 20 147/81 96 97.8 07/27/17 20:00 81 07/27/17 16:00 73 07/27/17 16:00 98.3 68 18 142/73 97 Room Air 98.3 07/27/17 12:00 98.0 71 16 133/71 97 Room Air 98.0 07/27/17 12:00 73 07/27/17 09:00 74 07/27/17 08:57 75 127/55 Intake and Output 07/27/17 07/28/17 19:00 07:00 Intake Total 250 ml Output Total 1200 ml 800 ml Balance -950 ml -800 ml Blood Product 250 ml Output Urine Total 1200 ml 800 ml Laboratory Tests 07/27/17 15:30: White Blood Count 11.8H, Red Blood Count 3.18L, Hemoglobin 11.0#L, Hematocrit 31.9#L, Mean Corpuscular Volume 100#H, Mean Corpuscular Hemoglobin 34.5H, Mean Corpuscular Hemoglobin Concent 34.4, Red Cell Distribution Width 17.8H, Platelet Count 220, Mean Platelet Volume 6.4L, Neutrophils (%) (Auto) 83.3H, Lymphocytes (%) (Auto) 11.7L, Monocytes (%) (Auto) 4.6, Eosinophils (%) (Auto) 0.2, Basophils (%) (Auto) 0.3 Height (Feet): 5 Height (Inches): 8.00 Weight (Pounds): 150 Tien Nielsen M.D. July 28, 2017 08:43
[2017-07-28] MEDS ORDERED: Docusate Sod/Senna tab ORAL SCH (09:00)
[2017-07-28] MEDS: Thiamine 100mg tab ORAL SCH (09:00)
[2017-07-28] MEDS ORDERED: ePHEDrine 50mg/ml Inj ONE (09:03)
--- NOTE | 2017-07-28 10:02 | Diagnostic Imaging Report ---
Ultrasound abdomen complete INDICATION: Abnormal labs COMPARISON: None TECHNIQUE: Real-time sonographic evaluation of the abdomen is performed using grayscale and color flow. FINDINGS: The liver demonstrates increased echogenicity and measures 14. 4 cm. The portal vein is patent with appropriate direction of flow. The common duct is not abnormally dilated. Status post cholecystectomy. Visualized portions of the pancreas are within normal limits. The spleen is normal in size and echogenicity. The right kidney measures 10.5 cm in length. 11 mm right kidney cyst. No contour deforming masses, hydronephrosis, or shadowing echogenic stones are identified. The left kidney measures 11.7 cm in length. No contour deforming masses, hydronephrosis, or shadowing echogenic stones are identified. Visualized portions of the aorta and IVC are unremarkable. No free fluid is identified. IMPRESSION: 1. Fatty liver. 2. Status post cholecystectomy. 3. 11 mm right renal cyst.
--- NOTE | 2017-07-28 10:21 | Diagnostic Imaging Report ---
LEFT HIP, Views INDICATION: 77-year-old with pain COMPARISON: None FINDINGS: 2 views of the left hip are obtained. Complete intertrochanteric fracture extending from the greater to the lesser trochanter with superior displacement of the distal fracture fragment. Multiple fracture fragments are seen. Normal anatomic alignment of the femoral acetabular joint space. IMPRESSION: Complete intertrochanteric fracture extending from the greater to the lesser trochanter with superior displacement of the distal fracture fragment. Multiple fracture fragments are seen.
--- NOTE | 2017-07-28 10:44 | Pulmonology Progress Note ---
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 secondary pneumothorax PLAN no change monitor imaging respiratory care oxygen avoidance of excess sedation if possible impression, plan, and exam edited and reviewed in detail care discussed with RN Subjective Allergies: Coded Allergies: No Known Allergies (Unverified , 08/23/15) Subjective care noted and reviewed oxygen care noted events reviewed Objective Last 24 Hour Vital Signs Date Time Temp Pulse Resp B/P (MAP) Pulse Ox O2 Delivery O2 Flow Rate FiO2 07/28/17 10:15 97.6 88 18 146/61 100 Nasal Cannula 3.0 97.6 07/28/17 10:10 82 18 148/70 100 Nasal Cannula 3.0 07/28/17 10:00 87 17 138/70 100 Nasal Cannula 3.0 07/28/17 09:55 94 18 144/76 100 Nasal Cannula 3.0 07/28/17 09:45 87 18 186/68 100 Nasal Cannula 3.0 07/28/17 09:42 193/87 07/28/17 09:40 85 21 182/94 100 Nasal Cannula 3.0 07/28/17 09:35 76 20 186/80 100 Simple Mask 6.0 07/28/17 09:28 97.8 80 16 187/84 100 Simple Mask 6.0 97.8 07/28/17 09:25 208.8 71 18 100 07/28/17 09:24 208.0 82 16 100 07/28/17 08:00 97.5 73 16 150/98 97 Room Air 97.5 07/28/17 08:00 74 07/28/17 04:00 69 07/28/17 04:00 97.7 71 16 137/82 97 97.7 07/28/17 00:00 98.4 88 18 140/71 96 98.4 07/28/17 00:00 87 07/27/17 22:31 81 147/81 07/27/17 20:00 97.8 81 20 147/81 96 97.8 07/27/17 20:00 81 07/27/17 16:00 73 07/27/17 16:00 98.3 68 18 142/73 97 Room Air 98.3 07/27/17 12:00 98.0 71 16 133/71 97 Room Air 98.0 07/27/17 12:00 73 Intake and Output 07/27/17 07/28/17 19:00 07:00 Intake Total 250 ml Output Total 1200 ml 800 ml Balance -950 ml -800 ml Blood Product 250 ml Output Urine Total 1200 ml 800 ml Objective WDWN NAD reduced breath sounds bilaterally without rhonchi or wheeze no crepitus [id number] without MRG NABS nontender no HSM no CCE awake Microbiology Date/Time Source Procedure Growth Status 07/25/17 21:30 Blood Blood Culture - Preliminary NO GROWTH AFTER 48 HOURS Resulted 07/25/17 21:15 Blood Blood Culture - Preliminary NO GROWTH AFTER 48 HOURS Resulted 07/26/17 15:10 Indwelling Cath Urine Culture - Final NO GROWTH AFTER 48 HOURS Complete Laboratory Tests 07/27/17 15:30: White Blood Count 11.8H, Red Blood Count 3.18L, Hemoglobin 11.0#L, Hematocrit 31.9#L, Mean Corpuscular Volume 100#H, Mean Corpuscular Hemoglobin 34.5H, Mean Corpuscular Hemoglobin Concent 34.4, Red Cell Distribution Width 17.8H, Platelet Count 220, Mean Platelet Volume 6.4L, Neutrophils (%) (Auto) 83.3H, Lymphocytes (%) (Auto) 11.7L, Monocytes (%) (Auto) 4.6, Eosinophils (%) (Auto) 0.2, Basophils (%) (Auto) 0.3 Current Medications Medications (Trade) Dose Ordered Sig/Leeroy Route PRN Reason Start Time Stop Time Status Last Admin Dose Admin Acetaminophen/ Hydrocodone Bitart ([place] 5/325) 1 tab Q1H PRN ORAL Mild Pain (Pain Scale 1-3) 07/28/17 08:15 07/28/17 17:00 Acetaminophen/ Hydrocodone Bitart ([place] 7.5/325) 1 tab Q1H PRN ORAL Moderate Pain (Pain Scale 4-6) 07/28/17 08:15 07/28/17 17:00 Acetaminophen/ Hydrocodone Bitart ([place] 7.5/325) 1 tab Q4H PRN ORAL Moderate Pain (Pain Scale 4-6) 07/28/17 08:30 08/04/17 08:29 UNV Al Hydroxide/Mg Hydroxide (Mylanta) 15 ml Q1H PRN ORAL gi upset 07/28/17 08:15 07/28/17 17:00 Atropine Sulfate (Atropine) 0.5 mg Q5M PRN IV HR <40 07/28/17 08:15 07/28/17 17:00 Cefazolin Sodium 2 gm/Dextrose 110 ml @ 220 mls/hr EVERY 8 HOURS IV 07/28/17 14:00 07/28/17 22:29 UNV Cefepime HCl 2 gm/ Dextrose 55 ml @ 110 mls/hr Q12HR@0600,1800 IVPB 07/27/17 18:00 08/03/17 17:59 07/28/17 06:00 Dextrose (Dextrose 50%) 25 ml STAT PRN IV Hypoglycemia 07/25/17 20:45 08/24/17 20:44 Dextrose (Dextrose 50%) 50 ml STAT PRN IV Hypoglycemia 07/25/17 20:45 08/24/17 20:44 Dextrose/ Electrolytes 1,000 ml @ 75 mls/hr [id number] IV 07/28/17 08:21 08/27/17 08:20 UNV Diphenhydramine HCl (Benadryl) 25 mg Q15M PRN IVP Itching 07/28/17 08:15 07/28/17 17:00 Diphenhydramine HCl (Benadryl) 25 mg Q6H PRN IVP Restlessness 07/25/17 21:45 08/24/17 21:44 Fentanyl Citrate (Sublimaze 100 mcg/2 mL) 25 mcg Q10M PRN IV Moderate Pain (Pain Scale 4-6) 07/28/17 08:15 07/28/17 17:00 Folic Acid (Folate) 1 mg DAILY ORAL 07/26/17 09:00 08/25/17 08:59 07/27/17 08:56 Heparin Sodium (Porcine) (Heparin 5000 units/ml) 5,000 units EVERY 8 HOURS SUBQ 07/25/17 22:00 08/24/17 21:59 07/26/17 05:51 Hydralazine HCl (Apresoline) 5 mg Q30M PRN IV SBP>160 / DBP>90 07/28/17 08:15 07/28/17 17:00 07/28/17 09:42 Labetalol HCl (Normodyne) 5 mg Q10M PRN IV SBP>160 / DBP>90 07/28/17 08:15 07/28/17 17:00 Lorazepam (Ativan 2mg/ml 1ml) 1 mg Q15M PRN IV For Anxiety 07/28/17 08:15 07/28/17 17:00 Magnesium Hydroxide (Mom) 30 ml DAILYPRN PRN ORAL Constipation 07/28/17 08:30 08/27/17 08:29 UNV Metoclopramide HCl (Reglan) 10 mg Q1H PRN IVP Nausea & Vomiting 07/28/17 08:15 07/28/17 17:00 Metoprolol Tartrate (Lopressor) 12.5 mg Q12HR ORAL 07/26/17 21:00 08/25/17 20:59 07/27/17 22:31 Midazolam HCl (Versed 2mg/2ml vial) 1 mg Q15M PRN IVP For Anxiety 07/28/17 08:15 07/28/17 17:00 Ondansetron HCl (Zofran) 4 mg Q1H PRN IVP Nausea & Vomiting 07/28/17 08:15 07/28/17 17:00 Ondansetron HCl (Zofran) 4 mg Q6HR PRN IVP Nausea & Vomiting 07/28/17 08:30 08/27/17 08:29 UNV Oxycodone/ Acetaminophen (Percocet 5-325) 1 tab Q1H PRN ORAL Severe Pain (Pain Scale 7-10) 07/28/17 08:15 07/28/17 17:00 Oxycodone/ Acetaminophen (Percocet 5-325) 1 tab Q4H PRN ORAL Mild Pain (Pain Scale 1-3) 07/25/17 21:45 08/01/17 21:44 07/26/17 19:52 Senna/Docusate Sodium ([place]-Colace) 1 tab TWICE A DAY ORAL 07/28/17 09:00 08/27/17 08:59 UNV Sodium Chloride 1,000 ml @ 100 mls/hr Q10H IVLG 07/25/17 21:44 08/24/17 21:43 07/27/17 22:33 Temazepam (Restoril) 7.5 mg DAILY PRN ORAL Insomnia 07/28/17 08:30 08/04/17 08:29 UNV Terbinafine HCl (LamISIL) 250 mg DAILY ORAL 07/27/17 09:00 08/03/17 08:59 07/27/17 08:56 Thiamine HCl (Vitamin B1) 100 mg DAILY ORAL 07/25/17 21:15 08/24/17 21:14 07/27/17 08:56 Vancomycin HCl (Vanco rx to dose) 1 ea DAILY PRN MISC Per rx protocol 07/26/17 13:15 08/25/17 13:14 Vancomycin HCl/ Dextrose 250 ml @ 166.667 mls/hr Q24H IVPB 07/26/17 23:00 07/31/17 22:59 07/27/17 22:32 Joe Jovel MD July 28, 2017 10:44
[2017-07-28] MEDS: D5 1/2NS w/KCl 20mEq 1,000 ML IV SCH (12:08)
[2017-07-28 12:47] LABS: ALANINE AMINOTRANSFERASE 52 U/L (12-78); ALBUMIN 2.4 G/DL (3.4-5.0); ALBUMIN/GLOBULIN RATIO 0.6 (1.0-2.7); ALKALINE PHOSPHATASE 107 U/L (46-116); ANION GAP 11 mmol/L (5-15); ASPARTATE AMINO TRANSFERASE 78 U/L (15-37); BILIRUBIN,TOTAL 1.4 MG/DL (0.2-1.0); BLOOD UREA NITROGEN 8 mg/dL (7-18); CALCIUM 8.1 MG/DL (8.5-10.1); CARBON DIOXIDE 23 MMOL/L (21-32); CHLORIDE 102 MMOL/L (98-107); CREATININE 0.8 MG/DL (0.55-1.30); POTASSIUM 2.8 MMOL/L (3.5-5.1); SODIUM 136 MMOL/L (136-145)
[2017-07-28 12:48] LABS: BILIRUBIN,DIRECT 0.4 MG/DL (0.0-0.3)
[2017-07-28] MEDS: Metoprolol Tartrate 12.5mg TAB ORAL SCH ×2 (13:41→20:58)
--- NOTE | 2017-07-28 14:17 | Cardiac Electrophysiology PN ---
Assessment/Plan Assessment/Plan 1. Troponin elevation. This is likely due to the patient's rhabdomyolysis and very high CPK as well as CK-MB of 63. The patient denies any chest pain. Denies any prior myocardial infarction or known coronary artery disease. EKG does not show any active ischemia even though he has bifascicular block. EF 55% Continue Lopressor 12.5 bid. Stress test showed only possible ischemia. Tolerated the surgery well with no cardiac issues. 2. Rhabdomyolysis. BUN and creatinine is improving and renal failure is improving with creatinine of 1.621. 3. Hyponatremia, improved. 4. History of heavy alcohol and tobacco use. 5. Anemia with Hb 10 down to 7.6. Getting 2 units PRBC 6. Left Hip Fx. S/P Left ORIF today DW Dr Zepeda and RN Subjective Subjective Stress test showed only possible ischemia. Tolerated surgery well. No chest pain or SOB. Objective Last 24 Hour Vital Signs Date Time Temp Pulse Resp B/P (MAP) Pulse Ox O2 Delivery O2 Flow Rate FiO2 07/28/17 13:41 74 124/104 07/28/17 12:07 97.6 07/28/17 12:00 94 07/28/17 10:15 97.6 88 18 146/61 100 Nasal Cannula 3.0 97.6 07/28/17 10:10 82 18 148/70 100 Nasal Cannula 3.0 07/28/17 10:00 87 17 138/70 100 Nasal Cannula 3.0 07/28/17 09:55 94 18 144/76 100 Nasal Cannula 3.0 07/28/17 09:45 87 18 186/68 100 Nasal Cannula 3.0 07/28/17 09:42 193/87 07/28/17 09:40 85 21 182/94 100 Nasal Cannula 3.0 07/28/17 09:35 76 20 186/80 100 Simple Mask 6.0 07/28/17 09:28 97.8 80 16 187/84 100 Simple Mask 6.0 97.8 07/28/17 09:25 208.8 71 18 100 07/28/17 09:24 208.0 82 16 100 07/28/17 08:00 97.5 73 16 150/98 97 Room Air 97.5 07/28/17 08:00 74 07/28/17 04:00 69 5/12/18 04:00 97.7 71 16 137/82 97 97.7 07/28/17 00:00 98.4 88 18 140/71 96 98.4 07/28/17 00:00 87 07/27/17 22:31 81 147/81 07/27/17 20:00 97.8 81 20 147/81 96 97.8 07/27/17 20:00 81 07/27/17 16:00 73 07/27/17 16:00 98.3 68 18 142/73 97 Room Air 98.3 Intake and Output 07/27/17 07/28/17 19:00 07:00 Intake Total 250 ml Output Total 1200 ml 800 ml Balance -950 ml -800 ml Blood Product 250 ml Output Urine Total 1200 ml 800 ml Laboratory Tests Test 07/27/17 15:30 07/28/17 11:35 White Blood Count 11.8 K/UL (4.8-10.8) H Red Blood Count 3.18 M/UL (4.70-6.10) L Hemoglobin 11.0 G/DL (14.2-18.0) #L Hematocrit 31.9 % (42.0-52.0) #L Mean Corpuscular Volume 100 FL (80-99) #H Mean Corpuscular Hemoglobin 34.5 PG (27.0-31.0) H Mean Corpuscular Hemoglobin Concent 34.4 G/DL (32.0-36.0) Red Cell Distribution Width 17.8 % (11.6-14.8) H Platelet Count 220 K/UL (150-450) Mean Platelet Volume 6.4 FL (6.5-10.1) L Neutrophils (%) (Auto) 83.3 % (45.0-75.0) H Lymphocytes (%) (Auto) 11.7 % (20.0-45.0) L Monocytes (%) (Auto) 4.6 % (1.0-10.0) Eosinophils (%) (Auto) 0.2 % (0.0-3.0) Basophils (%) (Auto) 0.3 % (0.0-2.0) Sodium Level 136 MMOL/L (136-145) Potassium Level 2.8 MMOL/L (3.5-5.1) L Chloride Level 102 MMOL/L (98-107) Carbon Dioxide Level 23 MMOL/L (21-32) Anion Gap 11 mmol/L (5-15) Blood Urea Nitrogen 8 mg/dL (7-18) Creatinine 0.8 MG/DL (0.55-1.30) Estimat Glomerular Filtration Rate mL/min (>60) Glucose Level 155 MG/DL (74-106) H Calcium Level 8.1 MG/DL (8.5-10.1) L Total Bilirubin 1.4 MG/DL (0.2-1.0) H Direct Bilirubin 0.4 MG/DL (0.0-0.3) H Aspartate Amino Transf (AST/SGOT) 78 U/L (15-37) H Alanine Aminotransferase (ALT/SGPT) 52 U/L (12-78) Alkaline Phosphatase 107 U/L (46-116) Total Protein 6.6 G/DL (6.4-8.2) Albumin 2.4 G/DL (3.4-5.0) L Globulin 4.2 g/dL Albumin/Globulin Ratio 0.6 (1.0-2.7) L Hepatitis A IgM Antibody Pending Hepatitis B Surface Antigen Pending Hepatitis B Core IgM Antibody Pending Hepatitis C Antibody Pending Microbiology Date/Time Source Procedure Growth Status 07/25/17 21:30 Blood Blood Culture - Preliminary NO GROWTH AFTER 48 HOURS Resulted 07/25/17 21:15 Blood Blood Culture - Preliminary NO GROWTH AFTER 48 HOURS Resulted 07/26/17 15:10 Indwelling Cath Urine Culture - Final NO GROWTH AFTER 48 HOURS Complete Objective HEAD AND NECK: Shows no JVD. LUNGS: Clear. CARDIOVASCULAR: Shows regular S1 and S2 with no gallop or murmur. ABDOMEN: Soft. EXTREMITIES: No pitting edema.S/P L Hip surgery. Preet Spencer MD July 28, 2017 14:17
[2017-07-28] MEDS: ceFAZolin sod 2 GM in D5W 110 ML IV SCH (16:21)
--- NOTE | 2017-07-28 16:45 | Operative Note - Dictated ---
DATE OF OPERATION: 07/28/2017 SURGEON: Milo Zepeda M.D. PREOPERATIVE DIAGNOSIS: Left two-part intertrochanteric hip fracture. POSTOPERATIVE DIAGNOSIS: Left two-part intertrochanteric hip fracture. PROCEDURE: Open reduction and internal fixation of left intertrochanteric hip fracture with intramedullary device. SURGEON: Milo Zepeda M.D. ANESTHESIA: Spinal. INDICATION FOR PROCEDURE: The patient is a gentleman who sustained a mechanical fall. He was finally cleared to have surgery for intertrochanteric hip fracture. Risks, limitations, expectations, and complications of procedure were discussed in detail, particularly cardiovascular risk in postoperative period as well as intraoperatively. Aside from them, normal issues such as infection, nonunion, malunion, stiffness, and pain were discussed as well with the patient as well as her granddaughter. DESCRIPTION OF PROCEDURE: After informed consent was obtained, the patient was brought to the operating room. The patient was placed under spinal anesthesia. The patient was then kept on the fracture table. We padded all the extremities. Reduction of the fracture was performed. Left aspect was prepped and draped in a sterile manner. A standard lateral skin incision was then made. Guidewire was placed on the proximal aspect of the femur. Once adequate position was confirmed using a guidewire, opening reamer was then used to open up the proximal reamer. A short 125 gamma nail was selected. Further reduction of the fracture was performed using the nail. Once that was done, a guidewire was placed through the neck-head junction. At this point, an 85 mm cannulated screw was then selected and placed. The set screw was locked and turned off quarter turn. Given the fixation distally, it was felt that distal fixation was not required. Therefore, the wound was copiously irrigated. The skin was closed with #1 Vicryl suture, 2-0 Vicryl suture, 3-0 Monocryl sutures. Steri-Strips and a sterile dressing were applied. The patient was awoken and taken to the recovery room with stable vital signs. ESTIMATED BLOOD LOSS: 25 mL. COMPLICATIONS: None. SPECIMENS: None. IMPLANTS: Include short gamma nail, 85 mm cannulated screw. Milo Zepeda M.D. DR: SELENE JOB#: [id number] CC:
[2017-07-28] MEDS: Docusate Sod/Senna tab ORAL SCH (17:05)
--- NOTE | 2017-07-28 18:45 | Infectious Diseases Prog Note ---
Assessment/Plan Problems: (1) Sepsis Assessment & Plan: blood culture remains negative so far , continue vancomycin with cefepime empirically pending culture results, monitor WBC (2) UTI (urinary tract infection) Assessment & Plan: urine culture is negative so far , on cefepime empirically for possible sepsis (3) Onychomycosis Assessment & Plan: continue lamasil for 3 months (4) Hip fracture, left Assessment & Plan: had ortho eval for ORIF , pending cardiac clearance , continue pain control (5) GENTRY (acute kidney injury) Assessment & Plan: due to the above, continue hydration and renally dosed antibiotics, pharmacy is following Subjective Constitutional: Reports: no symptoms HEENT: Reports: no symptoms Respiratory: Reports: no symptoms Breasts: Reports: no symptoms Cardiovascular: Reports: no symptoms Gastrointestinal/Abdominal: Reports: no symptoms Genitourinary: Reports: no symptoms Neurologic: Reports: numbness, weakness Psychiatric: Reports: no symptoms Skin: Reports: no symptoms Endocrine: Reports: no symptoms Hematologic: Reports: no symptoms Allergies: Coded Allergies: No Known Allergies (Unverified , 08/23/15) Subjective had left hip ORIF Objective Vital Signs Last 24 Hour Vital Signs Date Time Temp Pulse Resp B/P (MAP) Pulse Ox O2 Delivery O2 Flow Rate FiO2 07/28/17 16:00 97.2 18 114/65 100 Nasal Cannula 3.0 97.2 07/28/17 16:00 79 07/28/17 13:41 74 124/104 07/28/17 12:07 97.6 07/28/17 12:00 94 07/28/17 12:00 97.6 18 118/72 100 Nasal Cannula 3.0 97.6 07/28/17 10:15 97.6 88 18 146/61 100 Nasal Cannula 3.0 97.6 07/28/17 10:10 82 18 148/70 100 Nasal Cannula 3.0 07/28/17 10:00 87 17 138/70 100 Nasal Cannula 3.0 07/28/17 09:55 94 18 144/76 100 Nasal Cannula 3.0 07/28/17 09:45 87 18 186/68 100 Nasal Cannula 3.0 07/28/17 09:42 193/87 07/28/17 09:40 85 21 182/94 100 Nasal Cannula 3.0 07/28/17 09:35 76 20 186/80 100 Simple Mask 6.0 07/28/17 09:28 97.8 80 16 187/84 100 Simple Mask 6.0 97.8 07/28/17 09:25 208.8 71 18 100 07/28/17 09:24 208.0 82 16 100 07/28/17 08:00 97.5 73 16 150/98 97 Room Air 97.5 07/28/17 08:00 74 07/28/17 04:00 69 07/28/17 04:00 97.7 71 16 137/82 97 97.7 07/28/17 00:00 98.4 88 18 140/71 96 98.4 07/28/17 00:00 87 07/27/17 22:31 81 147/81 07/27/17 20:00 97.8 81 20 147/81 96 97.8 07/27/17 20:00 81 Height (Feet): 5 Height (Inches): 8.00 Weight (Pounds): 150 General Appearance: WD/WN, no acute distress HEENT: normocephalic, atraumatic, anicteric, mucous membranes moist, PERRL Respiratory/Chest: chest wall non-tender, normal breath sounds, no respiratory distress, no accessory muscle use, decreased breath sounds Cardiovascular: normal peripheral pulses, normal rate, regular rhythm, no gallop/murmur, no JVD Abdomen: normal bowel sounds, soft, non tender, no organomegaly, non distended , no mass, no scars Genitourinary: normal external genitalia Extremities: no cyanosis, no clubbing Skin: no rash, no lesions, no ulcers Neurologic/Psychiatric: alert, responsive Lymphatic: no neck adenopathy, no groin adenopathy Musculoskeletal: normal muscle bulk Microbiology Date/Time Source Procedure Growth Status 07/25/17 21:30 Blood Blood Culture - Preliminary NO GROWTH AFTER 48 HOURS Resulted 07/25/17 21:15 Blood Blood Culture - Preliminary NO GROWTH AFTER 48 HOURS Resulted 07/26/17 15:10 Indwelling Cath Urine Culture - Final NO GROWTH AFTER 48 HOURS Complete Laboratory Tests Test 07/28/17 11:35 Sodium Level 136 MMOL/L (136-145) Potassium Level 2.8 MMOL/L (3.5-5.1) L Chloride Level 102 MMOL/L (98-107) Carbon Dioxide Level 23 MMOL/L (21-32) Anion Gap 11 mmol/L (5-15) Blood Urea Nitrogen 8 mg/dL (7-18) Creatinine 0.8 MG/DL (0.55-1.30) Estimat Glomerular Filtration Rate mL/min (>60) Glucose Level 155 MG/DL (74-106) H Calcium Level 8.1 MG/DL (8.5-10.1) L Total Bilirubin 1.4 MG/DL (0.2-1.0) H Direct Bilirubin 0.4 MG/DL (0.0-0.3) H Aspartate Amino Transf (AST/SGOT) 78 U/L (15-37) H Alanine Aminotransferase (ALT/SGPT) 52 U/L (12-78) Alkaline Phosphatase 107 U/L (46-116) Total Protein 6.6 G/DL (6.4-8.2) Albumin 2.4 G/DL (3.4-5.0) L Globulin 4.2 g/dL Albumin/Globulin Ratio 0.6 (1.0-2.7) L Hepatitis A IgM Antibody Pending Hepatitis B Surface Antigen Pending Hepatitis B Core IgM Antibody Pending Hepatitis C Antibody Pending Current Medications Medications (Trade) Dose Ordered Sig/Leeroy Route PRN Reason Start Time Stop Time Status Last Admin Dose Admin Acetaminophen/ Hydrocodone Bitart ([place] 7.5/325) 1 tab Q4H PRN ORAL Moderate Pain (Pain Scale 4-6) 07/28/17 08:30 08/04/17 08:29 Cefazolin Sodium 2 gm/Dextrose 110 ml @ 220 mls/hr Q8H IV 07/28/17 16:00 07/29/17 00:29 07/28/17 16:21 Cefepime HCl 2 gm/ Dextrose 55 ml @ 110 mls/hr Q12HR@0600,1800 IVPB 07/27/17 18:00 08/03/17 17:59 07/28/17 17:04 Dextrose (Dextrose 50%) 25 ml STAT PRN IV Hypoglycemia 07/25/17 20:45 08/24/17 20:44 Dextrose (Dextrose 50%) 50 ml STAT PRN IV Hypoglycemia 07/25/17 20:45 08/24/17 20:44 Dextrose/ Electrolytes 1,000 ml @ 75 mls/hr [id number] IV 07/28/17 12:30 08/27/17 12:29 07/28/17 12:08 Diphenhydramine HCl (Benadryl) 25 mg Q6H PRN IVP Restlessness 07/25/17 21:45 08/24/17 21:44 Folic Acid (Folate) 1 mg DAILY ORAL 07/29/17 09:00 08/25/17 08:59 Heparin Sodium (Porcine) (Heparin 5000 units/ml) 5,000 units EVERY 8 HOURS SUBQ 07/28/17 22:00 08/24/17 21:59 Magnesium Hydroxide (Mom) 30 ml DAILYPRN PRN ORAL Constipation 07/28/17 08:30 08/27/17 08:29 Metoprolol Tartrate (Lopressor) 12.5 mg Q12HR ORAL 07/28/17 12:27 09/04/17 12:26 07/28/17 13:41 Ondansetron HCl (Zofran) 4 mg Q6HR PRN IVP Nausea & Vomiting 07/28/17 08:30 08/27/17 08:29 Oxycodone/ Acetaminophen (Percocet 5-325) 1 tab Q4H PRN ORAL Mild Pain (Pain Scale 1-3) 07/25/17 21:45 08/01/17 21:44 07/26/17 19:52 Senna/Docusate Sodium ([place]-Colace) 1 tab TWICE A DAY ORAL 07/28/17 18:00 08/27/17 17:59 07/28/17 17:05 Temazepam (Restoril) 7.5 mg DAILY PRN ORAL Insomnia 07/28/17 08:30 08/04/17 08:29 Terbinafine HCl (LamISIL) 250 mg DAILY ORAL 07/29/17 09:00 08/05/17 08:59 Thiamine HCl (Vitamin B1) 100 mg DAILY ORAL 07/29/17 09:00 08/28/17 08:59 Vancomycin HCl (Vanco rx to dose) 1 ea DAILY PRN MISC Per rx protocol 07/26/17 13:15 08/25/17 13:14 Vancomycin HCl/ Dextrose 250 ml @ 166.667 mls/hr Q24H IVPB 07/26/17 23:00 07/31/17 22:59 07/27/17 22:32 Kee Mcfarlane M.D. July 28, 2017 18:45
[2017-07-28] MEDS: Vancomycin 1250mg/D5W 250ml IVPB SCH (23:07)
[2017-07-29] VITALS: BP 140/70
[2017-07-29] MEDS: ceFAZolin sod 2 GM in D5W 110 ML IV SCH ×2
[2017-07-29] MEDS: D5 1/2NS w/KCl 20mEq 1,000 ML IV SCH (01:50)
[2017-07-29 03:51] VITALS: BP 145/73
[2017-07-29] MEDS: Cefepime HCl 2 GM in D5W 55 ML IVPB SCH ×2 (06:00→17:27)
[2017-07-29] MEDS: Heparin 5000 units/ml inj SUBQ SCH ×3 (06:21→21:18)
--- NOTE | 2017-07-29 07:11 | Pulmonology Progress Note ---
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 Crook to resume care in am impression, plan, and exam edited and reviewed in detail care discussed with RN Subjective Allergies: Coded Allergies: No Known Allergies (Unverified , 08/23/15) Subjective care noted and reviewed oxygen care noted events reviewed Objective Last 24 Hour Vital Signs Date Time Temp Pulse Resp B/P (MAP) Pulse Ox O2 Delivery O2 Flow Rate FiO2 07/29/17 04:00 73 07/29/17 03:51 97.6 76 16 145/73 96 Room Air 97.6 07/29/17 00:00 97.1 78 16 140/70 100 Room Air 97.1 07/29/17 00:00 77 07/28/17 20:58 82 127/68 07/28/17 20:00 82 07/28/17 20:00 97.5 82 18 127/68 98 Nasal Cannula 3.0 97.5 07/28/17 16:00 97.2 18 114/65 100 Nasal Cannula 3.0 97.2 07/28/17 16:00 79 07/28/17 13:41 74 124/104 07/28/17 12:07 97.6 07/28/17 12:00 94 07/28/17 12:00 97.6 18 118/72 100 Nasal Cannula 3.0 97.6 07/28/17 10:15 97.6 88 18 146/61 100 Nasal Cannula 3.0 97.6 07/28/17 10:10 82 18 148/70 100 Nasal Cannula 3.0 07/28/17 10:00 87 17 138/70 100 Nasal Cannula 3.0 07/28/17 09:55 94 18 144/76 100 Nasal Cannula 3.0 07/28/17 09:45 87 18 186/68 100 Nasal Cannula 3.0 07/28/17 09:42 193/87 07/28/17 09:40 85 21 182/94 100 Nasal Cannula 3.0 07/28/17 09:35 76 20 186/80 100 Simple Mask 6.0 07/28/17 09:28 97.8 80 16 187/84 100 Simple Mask 6.0 97.8 07/28/17 09:25 208.8 71 18 100 07/28/17 09:24 208.0 82 16 100 07/28/17 08:00 97.5 73 16 150/98 97 Room Air 97.5 07/28/17 08:00 74 Intake and Output 07/28/17 07/29/17 19:00 07:00 Intake Total 900 ml Output Total 230 ml 1300 ml Balance 670 ml -1300 ml Intake Oral 500 ml IV Total 400 ml Output Urine Total 200 ml 1300 ml Estimated Blood Loss 30 ml # Voids 1 Objective WDWN NAD reduced breath sounds bilaterally without rhonchi or wheeze no crepitus [id number] without MRG NABS nontender no HSM no CCE awake Microbiology Date/Time Source Procedure Growth Status 07/26/17 15:10 Indwelling Cath Urine Culture - Final NO GROWTH AFTER 48 HOURS Complete Laboratory Tests 07/28/17 11:35: Sodium Level 136, Potassium Level 2.8L, Chloride Level 102, Carbon Dioxide Level 23, Anion Gap 11, Blood Urea Nitrogen 8, Creatinine 0.8, Estimat Glomerular Filtration Rate , Glucose Level 155H, Calcium Level 8.1L, Total Bilirubin 1.4H, Direct Bilirubin 0.4H, Aspartate Amino Transf (AST/SGOT) 78H, Alanine Aminotransferase (ALT/SGPT) 52, Alkaline Phosphatase 107, Total Protein 6.6, Albumin 2.4L, Globulin 4.2, Albumin/Globulin Ratio 0.6L, Hepatitis A IgM Antibody [Pending], Hepatitis B Surface Antigen [Pending], Hepatitis B Core IgM Antibody [Pending], Hepatitis C Antibody [Pending] 07/28/17 22:50: Vancomycin Level Trough 7.9 Current Medications Medications (Trade) Dose Ordered Sig/Leeroy Route PRN Reason Start Time Stop Time Status Last Admin Dose Admin Acetaminophen/ Hydrocodone Bitart ([place] 7.5/325) 1 tab Q4H PRN ORAL Moderate Pain (Pain Scale 4-6) 07/28/17 08:30 08/04/17 08:29 Cefepime HCl 2 gm/ Dextrose 55 ml @ 110 mls/hr Q12HR@0600,1800 IVPB 07/27/17 18:00 08/03/17 17:59 07/29/17 06:00 Dextrose (Dextrose 50%) 25 ml STAT PRN IV Hypoglycemia 07/25/17 20:45 08/24/17 20:44 Dextrose (Dextrose 50%) 50 ml STAT PRN IV Hypoglycemia 07/25/17 20:45 08/24/17 20:44 Dextrose/ Electrolytes 1,000 ml @ 75 mls/hr [id number] IV 07/28/17 12:30 08/27/17 12:29 07/28/17 12:08 Diphenhydramine HCl (Benadryl) 25 mg Q6H PRN IVP Restlessness 07/25/17 21:45 08/24/17 21:44 Folic Acid (Folate) 1 mg DAILY ORAL 07/29/17 09:00 08/25/17 08:59 Heparin Sodium (Porcine) (Heparin 5000 units/ml) 5,000 units EVERY 8 HOURS SUBQ 07/28/17 22:00 08/24/17 21:59 07/29/17 06:21 Magnesium Hydroxide (Mom) 30 ml DAILYPRN PRN ORAL Constipation 07/28/17 08:30 08/27/17 08:29 Metoprolol Tartrate (Lopressor) 12.5 mg Q12HR ORAL 07/28/17 12:27 09/04/17 12:26 07/28/17 20:58 Ondansetron HCl (Zofran) 4 mg Q6HR PRN IVP Nausea & Vomiting 07/28/17 08:30 08/27/17 08:29 Oxycodone/ Acetaminophen (Percocet 5-325) 1 tab Q4H PRN ORAL Mild Pain (Pain Scale 1-3) 07/25/17 21:45 08/01/17 21:44 07/26/17 19:52 Senna/Docusate Sodium ([place]-Colace) 1 tab TWICE A DAY ORAL 07/28/17 18:00 08/27/17 17:59 07/28/17 17:05 Temazepam (Restoril) 7.5 mg DAILY PRN ORAL Insomnia 07/28/17 08:30 08/04/17 08:29 07/28/17 22:13 Terbinafine HCl (LamISIL) 250 mg DAILY ORAL 07/29/17 09:00 08/05/17 08:59 Thiamine HCl (Vitamin B1) 100 mg DAILY ORAL 07/29/17 09:00 08/28/17 08:59 Vancomycin HCl (Vanco rx to dose) 1 ea DAILY PRN MISC Per rx protocol 07/26/17 13:15 08/25/17 13:14 Vancomycin HCl/ Dextrose 250 ml @ 166.667 mls/hr Q24H IVPB 07/26/17 23:00 07/31/17 22:59 07/28/17 23:07 Joe Jovel MD July 29, 2017 07:11
[2017-07-29 08:00] VITALS: BP 148/82
[2017-07-29] MEDS ORDERED: Sterile Water Irrig 1000ml IRRIG ONE (08:00)
[2017-07-29] MEDS ORDERED: NS Irrig 1000ml ONE (08:00)
[2017-07-29] MEDS ORDERED: Potassium Chloride 40 MEQ in Sodium Chloride 500ML 550 ML IVPB ONE (09:00)
--- NOTE | 2017-07-29 09:21 | Nephrology Progress Note ---
Assessment/Plan Assessment/Plan 1. Acute intertrochanteric fracture of left femur/Hip - patient s/p surgical correction. appreciate Ortho assistance 2. Leukocytosis- resolved, Abx mgmt per ID 3. ACS- resolved. 4. DVT prophylaxsis- with heparing sub q q 8hrs 5. 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 Resolved. DC IVF's 6. Rhabdomyolysis- due to broken femur and immobiliztion for several days at home - Resolved, DC IVF's 7. Anemia- AM labs pending. Appreciate GI assistance 8. Tiny right basilar pneumothorax. Extensive bullous emphysema - appreciate Pulmonary, stable Subjective Date patient seen: July 29, 2017 Time patient seen: 09:18 ROS Limited/Unobtainable: No Allergies: Coded Allergies: No Known Allergies (Unverified , 08/23/15) All Systems: reviewed and negative except above Subjective Patient had hip surgery yesterday Objective Last 24 Hour Vital Signs Date Time Temp Pulse Resp B/P (MAP) Pulse Ox O2 Delivery O2 Flow Rate FiO2 07/29/17 04:00 73 07/29/17 03:51 97.6 76 16 145/73 96 Room Air 97.6 07/29/17 00:00 97.1 78 16 140/70 100 Room Air 97.1 07/29/17 00:00 77 07/28/17 20:58 82 127/68 07/28/17 20:00 82 07/28/17 20:00 97.5 82 18 127/68 98 Nasal Cannula 3.0 97.5 07/28/17 16:00 97.2 18 114/65 100 Nasal Cannula 3.0 97.2 07/28/17 16:00 79 07/28/17 13:41 74 124/104 07/28/17 12:07 97.6 07/28/17 12:00 94 07/28/17 12:00 97.6 18 118/72 100 Nasal Cannula 3.0 97.6 07/28/17 10:15 97.6 88 18 146/61 100 Nasal Cannula 3.0 97.6 07/28/17 10:10 82 18 148/70 100 Nasal Cannula 3.0 07/28/17 10:00 87 17 138/70 100 Nasal Cannula 3.0 07/28/17 09:55 94 18 144/76 100 Nasal Cannula 3.0 07/28/17 09:45 87 18 186/68 100 Nasal Cannula 3.0 07/28/17 09:42 193/87 07/28/17 09:40 85 21 182/94 100 Nasal Cannula 3.0 07/28/17 09:35 76 20 186/80 100 Simple Mask 6.0 07/28/17 09:28 97.8 80 16 187/84 100 Simple Mask 6.0 97.8 07/28/17 09:25 208.8 71 18 100 07/28/17 09:24 208.0 82 16 100 Intake and Output 07/28/17 07/29/17 19:00 07:00 Intake Total 900 ml Output Total 230 ml 1300 ml Balance 670 ml -1300 ml Intake Oral 500 ml IV Total 400 ml Output Urine Total 200 ml 1300 ml Estimated Blood Loss 30 ml # Voids 1 Laboratory Tests 07/28/17 11:35: Sodium Level 136, Potassium Level 2.8L, Chloride Level 102, Carbon Dioxide Level 23, Anion Gap 11, Blood Urea Nitrogen 8, Creatinine 0.8, Estimat Glomerular Filtration Rate , Glucose Level 155H, Calcium Level 8.1L, Total Bilirubin 1.4H, Direct Bilirubin 0.4H, Aspartate Amino Transf (AST/SGOT) 78H, Alanine Aminotransferase (ALT/SGPT) 52, Alkaline Phosphatase 107, Total Protein 6.6, Albumin 2.4L, Globulin 4.2, Albumin/Globulin Ratio 0.6L, Hepatitis A IgM Antibody [Pending], Hepatitis B Surface Antigen [Pending], Hepatitis B Core IgM Antibody [Pending], Hepatitis C Antibody [Pending] 07/28/17 22:50: Vancomycin Level Trough 7.9 07/29/17 08:50: Sodium Level [Pending], Potassium Level [Pending], Chloride Level [Pending], Carbon Dioxide Level [Pending], Blood Urea Nitrogen [Pending], Creatinine [ Pending], Estimat Glomerular Filtration Rate [Pending], Glucose Level [Pending] , Calcium Level [Pending], White Blood Count [Pending], Red Blood Count [Pending ], Hemoglobin [Pending], Hematocrit [Pending], Mean Corpuscular Volume [Pending] , Mean Corpuscular Hemoglobin [Pending], Mean Corpuscular Hemoglobin Concent [ Pending], Red Cell Distribution Width [Pending], Platelet Count [Pending], Mean Platelet Volume [Pending], Neutrophils (%) (Auto) [Pending], Lymphocytes (%) ( Auto) [Pending], Monocytes (%) (Auto) [Pending], Eosinophils (%) (Auto) [Pending ], Basophils (%) (Auto) [Pending], Total Creatine Kinase [Pending] Height (Feet): 5 Height (Inches): 8.00 Weight (Pounds): 150 General Appearance: WD/WN, no apparent distress EENT: PERRL/EOMI Neck: non-tender, normal alignment Cardiovascular: normal rate, regular rhythm Respiratory/Chest: chest wall non-tender, lungs clear Abdomen: normal bowel sounds, non tender, soft Edema: no edema noted Arm (L), no edema noted Arm (R), no edema noted Leg (L), no edema noted Leg (R), no edema noted Pedal (L), no edema noted Pedal (R), no edema noted Generalized Tien Nielsen M.D. July 29, 2017 09:21
[2017-07-29 09:22] LABS: BASOPHILS % (AUTO) 0.4 % (0.0-2.0); EOSINOPHILS % (AUTO) 0.9 % (0.0-3.0); HEMATOCRIT 32.8 % (42.0-52.0); HEMOGLOBIN 11.2 G/DL (14.2-18.0); LYMPHOCYTES % (AUTO) 10.3 % (20.0-45.0); MEAN CORPUSCULAR VOLUME 102 FL (80-99); MONOCYTES % (AUTO) 12.8 % (1.0-10.0); NEUTROPHILS % (AUTO) 75.7 % (45.0-75.0); PLATELET COUNT 253 K/UL (150-450); RED BLOOD COUNT 3.23 M/UL (4.70-6.10); RED CELL DISTRIBUTION WIDTH 17.7 % (11.6-14.8); WHITE BLOOD COUNT 11.2 K/UL (4.8-10.8)
[2017-07-29] MEDS: Thiamine 100mg tab ORAL SCH (09:45)
[2017-07-29] MEDS: Docusate Sod/Senna tab ORAL SCH ×2 (09:46→17:22)
[2017-07-29] MEDS: Metoprolol Tartrate 12.5mg TAB ORAL SCH ×2 (09:46→21:13)
[2017-07-29 09:51] LABS: ANION GAP 8 mmol/L (5-15); BLOOD UREA NITROGEN 7 mg/dL (7-18); CALCIUM 7.9 MG/DL (8.5-10.1); CARBON DIOXIDE 25 MMOL/L (21-32); CHLORIDE 102 MMOL/L (98-107); CREATINE KINASE 417 U/L (26-308); CREATININE 0.9 MG/DL (0.55-1.30); POTASSIUM 2.8 MMOL/L (3.5-5.1); SODIUM 135 MMOL/L (136-145)
[2017-07-29 12:00] VITALS: BP 145/75
--- NOTE | 2017-07-29 13:04 | Infectious Diseases Prog Note ---
Assessment/Plan Problems: (1) Sepsis Assessment & Plan: blood culture remains negative so far , continue vancomycin with cefepime empirically pending culture results, monitor WBC (2) UTI (urinary tract infection) Assessment & Plan: urine culture is negative so far , on cefepime empirically for possible sepsis (3) Onychomycosis Assessment & Plan: severe, continue lamasil for 3 months (4) Hip fracture, left Assessment & Plan: S/P ORIF , continue pain control , ortho is following (5) GENTRY (acute kidney injury) Assessment & Plan: due to the above, continue hydration and renally dosed antibiotics, pharmacy is following (6) Urinary (tract) obstruction Assessment & Plan: rule out enlarged prostate VS neurogenic bladder Post OP, needs holt catheter Subjective Constitutional: Reports: no symptoms HEENT: Reports: no symptoms Respiratory: Reports: no symptoms Breasts: Reports: no symptoms Cardiovascular: Reports: no symptoms Gastrointestinal/Abdominal: Reports: no symptoms Genitourinary: Reports: other - urinary retension Neurologic: Reports: weakness Psychiatric: Reports: no symptoms Skin: Reports: no symptoms Endocrine: Reports: no symptoms Hematologic: Reports: no symptoms Musculoskeletal: Reports: pain, swelling Allergies: Coded Allergies: No Known Allergies (Unverified , 08/23/15) Subjective had left hip ORIF Objective Vital Signs Last 24 Hour Vital Signs Date Time Temp Pulse Resp B/P (MAP) Pulse Ox O2 Delivery O2 Flow Rate FiO2 07/29/17 09:46 85 148/82 07/29/17 08:00 97.3 85 18 148/82 99 Room Air 97.3 07/29/17 08:00 77 07/29/17 04:00 73 07/29/17 03:51 97.6 76 16 145/73 96 Room Air 97.6 07/29/17 00:00 97.1 78 16 140/70 100 Room Air 97.1 07/29/17 00:00 77 07/28/17 20:58 82 127/68 07/28/17 20:00 82 07/28/17 20:00 97.5 82 18 127/68 98 Nasal Cannula 3.0 97.5 07/28/17 16:00 97.2 18 114/65 100 Nasal Cannula 3.0 97.2 07/28/17 16:00 79 07/28/17 13:41 74 124/104 Height (Feet): 5 Height (Inches): 8.00 Weight (Pounds): 150 General Appearance: WD/WN, no acute distress, cachetic HEENT: normocephalic, atraumatic, anicteric, mucous membranes moist, PERRL Respiratory/Chest: chest wall non-tender, lungs clear, normal breath sounds, no respiratory distress, no accessory muscle use Cardiovascular: normal peripheral pulses, normal rate, regular rhythm, no gallop/murmur, no JVD Abdomen: normal bowel sounds, no organomegaly, no mass, no scars, distended, tender Extremities: no cyanosis, no clubbing, other - left leg edema with swelling at the pelvis Skin: no rash, no lesions, no ulcers Neurologic/Psychiatric: alert, responsive Lymphatic: no neck adenopathy, no groin adenopathy Microbiology Date/Time Source Procedure Growth Status 07/26/17 15:10 Indwelling Cath Urine Culture - Final NO GROWTH AFTER 48 HOURS Complete Laboratory Tests Test 07/28/17 22:50 07/29/17 08:50 Vancomycin Level Trough 7.9 ug/mL (5.0-12.0) White Blood Count 11.2 K/UL (4.8-10.8) H Red Blood Count 3.23 M/UL (4.70-6.10) L Hemoglobin 11.2 G/DL (14.2-18.0) L Hematocrit 32.8 % (42.0-52.0) L Mean Corpuscular Volume 102 FL (80-99) H Mean Corpuscular Hemoglobin 34.7 PG (27.0-31.0) H Mean Corpuscular Hemoglobin Concent 34.2 G/DL (32.0-36.0) Red Cell Distribution Width 17.7 % (11.6-14.8) H Platelet Count 253 K/UL (150-450) Mean Platelet Volume 6.5 FL (6.5-10.1) Neutrophils (%) (Auto) 75.7 % (45.0-75.0) H Lymphocytes (%) (Auto) 10.3 % (20.0-45.0) L Monocytes (%) (Auto) 12.8 % (1.0-10.0) H Eosinophils (%) (Auto) 0.9 % (0.0-3.0) Basophils (%) (Auto) 0.4 % (0.0-2.0) Sodium Level 135 MMOL/L (136-145) L Potassium Level 2.8 MMOL/L (3.5-5.1) L Chloride Level 102 MMOL/L (98-107) Carbon Dioxide Level 25 MMOL/L (21-32) Anion Gap 8 mmol/L (5-15) Blood Urea Nitrogen 7 mg/dL (7-18) Creatinine 0.9 MG/DL (0.55-1.30) Estimat Glomerular Filtration Rate mL/min (>60) Glucose Level 165 MG/DL (74-106) H Calcium Level 7.9 MG/DL (8.5-10.1) L Total Creatine Kinase 417 U/L (26-308) H Current Medications Medications (Trade) Dose Ordered Sig/Leeroy Route PRN Reason Start Time Stop Time Status Last Admin Dose Admin Acetaminophen/ Hydrocodone Bitart ([place] 7.5/325) 1 tab Q4H PRN ORAL Moderate Pain (Pain Scale 4-6) 07/28/17 08:30 08/04/17 08:29 Cefepime HCl 2 gm/ Dextrose 55 ml @ 110 mls/hr Q12HR@0600,1800 IVPB 07/27/17 18:00 08/03/17 17:59 07/29/17 06:00 Dextrose (Dextrose 50%) 25 ml STAT PRN IV Hypoglycemia 07/25/17 20:45 08/24/17 20:44 Dextrose (Dextrose 50%) 50 ml STAT PRN IV Hypoglycemia 07/25/17 20:45 08/24/17 20:44 Diphenhydramine HCl (Benadryl) 25 mg Q6H PRN IVP Restlessness 07/25/17 21:45 08/24/17 21:44 Folic Acid (Folate) 1 mg DAILY ORAL 07/29/17 09:00 08/25/17 08:59 07/29/17 09:45 Heparin Sodium (Porcine) (Heparin 5000 units/ml) 5,000 units EVERY 8 HOURS SUBQ 07/28/17 22:00 08/24/17 21:59 07/29/17 06:21 Magnesium Hydroxide (Mom) 30 ml DAILYPRN PRN ORAL Constipation 07/28/17 08:30 08/27/17 08:29 Metoprolol Tartrate (Lopressor) 12.5 mg Q12HR ORAL 07/28/17 12:27 09/04/17 12:26 07/29/17 09:46 Ondansetron HCl (Zofran) 4 mg Q6HR PRN IVP Nausea & Vomiting 07/28/17 08:30 08/27/17 08:29 Oxycodone/ Acetaminophen (Percocet 5-325) 1 tab Q4H PRN ORAL Mild Pain (Pain Scale 1-3) 07/25/17 21:45 08/01/17 21:44 07/26/17 19:52 Senna/Docusate Sodium ([place]-Colace) 1 tab TWICE A DAY ORAL 07/28/17 18:00 08/27/17 17:59 07/29/17 09:46 Temazepam (Restoril) 7.5 mg DAILY PRN ORAL Insomnia 07/28/17 08:30 08/04/17 08:29 07/28/17 22:13 Terbinafine HCl (LamISIL) 250 mg DAILY ORAL 07/29/17 09:00 08/05/17 08:59 07/29/17 09:45 Thiamine HCl (Vitamin B1) 100 mg DAILY ORAL 07/29/17 09:00 08/28/17 08:59 07/29/17 09:45 Vancomycin HCl (Vanco rx to dose) 1 ea DAILY PRN MISC Per rx protocol 07/26/17 13:15 08/25/17 13:14 Vancomycin/Sodium Chloride 250 ml @ 166.667 mls/hr Q12H IVPB 07/29/17 14:00 08/03/17 13:59 Kee Mcfarlane M.D. July 29, 2017 13:04
[2017-07-29] MEDS: Vancomycin 750mg/NS 250ml IVPB SCH (15:05)
[2017-07-29 16:00] VITALS: BP 132/68
[2017-07-29] MEDS ORDERED: NS 500ML ONE (20:46)
[2017-07-29] MEDS ORDERED: NS 275ml ONE (20:46)
[2017-07-29] MEDS ORDERED: Tubing IV Secondary IV ONE (20:46)
[2017-07-29] MEDS ORDERED: Tubing IV Blood Pump IV ONE (20:46)
[2017-07-29 21:00] VITALS: BP 130/71
[2017-07-30 00:01] VITALS: BP 151/79
[2017-07-30] MEDS: Vancomycin 750mg/NS 250ml IVPB SCH (02:09)
[2017-07-30 04:00] VITALS: BP 155/72
[2017-07-30] MEDS: Cefepime HCl 2 GM in D5W 55 ML IVPB SCH (06:04)
[2017-07-30] MEDS: Heparin 5000 units/ml inj SUBQ SCH ×3 (06:05→22:11)
[2017-07-30 08:00] VITALS: BP 137/64
--- NOTE | 2017-07-30 08:37 | Nephrology Progress Note ---
Assessment/Plan Assessment/Plan 1. Acute intertrochanteric fracture of left femur/Hip - patient s/p surgical correction. 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 Leukocytosis- resolved, Abx mgmt per ID. Improved 3. ACS- resolved. 4. DVT prophylaxsis- with heparing sub q q 8hrs 5. GENTRY- resolved 6. Rhabdomyolysis- resolved 7. Anemia- Hgb stable 8. Tiny right basilar pneumothorax. Extensive bullous emphysema - appreciate Pulmonary, stable 9. Hypokalemia- replace prn Subjective Date patient seen: July 30, 2017 Time patient seen: 08:34 ROS Limited/Unobtainable: No Allergies: Coded Allergies: No Known Allergies (Unverified , 08/23/15) All Systems: reviewed and negative except above Subjective Patient had hip surgery and much improved Objective Last 24 Hour Vital Signs Date Time Temp Pulse Resp B/P (MAP) Pulse Ox O2 Delivery O2 Flow Rate FiO2 07/30/17 04:00 98.0 73 20 155/72 99 Room Air 98.0 07/30/17 04:00 70 07/30/17 00:01 97.7 72 20 151/79 98 Room Air 97.7 07/30/17 00:00 72 07/29/17 21:13 85 130/71 07/29/17 21:00 97.0 85 20 130/71 98 Room Air 97.0 07/29/17 20:00 81 07/29/17 16:00 92 07/29/17 16:00 98.1 87 20 132/68 98 Room Air 98.1 07/29/17 12:00 72 07/29/17 12:00 97.1 72 20 145/75 98 Room Air 97.1 07/29/17 09:46 85 148/82 Intake and Output 07/29/17 07/30/17 19:00 07:00 Intake Total 420 ml Output Total 1350 ml Balance 420 ml -1350 ml Intake Oral 420 ml Output Urine Total 1350 ml # Voids 1 Laboratory Tests 07/29/17 08:50: White Blood Count 11.2H, Red Blood Count 3.23L, Hemoglobin 11.2L, Hematocrit 32.8L, Mean Corpuscular Volume 102H, Mean Corpuscular Hemoglobin 34.7H, Mean Corpuscular Hemoglobin Concent 34.2, Red Cell Distribution Width 17.7H, Platelet Count 253, Mean Platelet Volume 6.5, Neutrophils (%) (Auto) 75.7H, Lymphocytes (%) (Auto) 10.3L, Monocytes (%) (Auto) 12.8H, Eosinophils (%) (Auto ) 0.9, Basophils (%) (Auto) 0.4, Sodium Level 135L, Potassium Level 2.8L, Chloride Level 102, Carbon Dioxide Level 25, Anion Gap 8, Blood Urea Nitrogen 7 , Creatinine 0.9, Estimat Glomerular Filtration Rate , Glucose Level 165H, Calcium Level 7.9L, Total Creatine Kinase 417H Height (Feet): 5 Height (Inches): 8.00 Weight (Pounds): 150 General Appearance: no apparent distress EENT: PERRL/EOMI, normal ENT inspection Neck: non-tender, normal alignment Cardiovascular: normal peripheral pulses, normal rate Respiratory/Chest: chest wall non-tender, lungs clear, normal breath sounds Abdomen: normal bowel sounds, non tender Edema: no edema noted Arm (L), no edema noted Arm (R), no edema noted Leg (L), no edema noted Leg (R), no edema noted Pedal (L), no edema noted Pedal (R), no edema noted Generalized Tien Nielsen M.D. July 30, 2017 08:37
[2017-07-30] MEDS: Metoprolol Tartrate 12.5mg TAB ORAL SCH ×2 (09:03→22:09)
[2017-07-30] MEDS: Docusate Sod/Senna tab ORAL SCH ×2 (09:03→17:32)
[2017-07-30] MEDS: Thiamine 100mg tab ORAL SCH (09:03)
--- NOTE | 2017-07-30 09:47 | Pulmonology Progress Note ---
Assessment/Plan Assessment/Plan IMPRESSION: 1. Loculated right pneumothorax. 2. Hip fracture. S/p ORIF 3. Severe bullous lung disease/emphysema DISCUSSION: respiratory care oxygen avoidance of excess sedation if possible impression, plan, and exam edited and reviewed in detail care discussed with RN Subjective Interval Events: None Constitutional: Reports: no symptoms HEENT: Repors: no symptoms Respiratory: Reports: no symptoms Cardiovascular: Reports: no symptoms Allergies: Coded Allergies: No Known Allergies (Unverified , 08/23/15) Objective Last 24 Hour Vital Signs Date Time Temp Pulse Resp B/P (MAP) Pulse Ox O2 Delivery O2 Flow Rate FiO2 07/30/17 09:03 82 137/64 07/30/17 08:00 97.2 82 18 137/64 98 Room Air 97.2 07/30/17 04:00 98.0 73 20 155/72 99 Room Air 98.0 07/30/17 04:00 70 07/30/17 00:01 97.7 72 20 151/79 98 Room Air 97.7 07/30/17 00:00 72 07/29/17 21:13 85 130/71 07/29/17 21:00 97.0 85 20 130/71 98 Room Air 97.0 07/29/17 20:00 81 07/29/17 16:00 92 07/29/17 16:00 98.1 87 20 132/68 98 Room Air 98.1 07/29/17 12:00 72 07/29/17 12:00 97.1 72 20 145/75 98 Room Air 97.1 Intake and Output 07/29/17 07/30/17 19:00 07:00 Intake Total 420 ml Output Total 1350 ml Balance 420 ml -1350 ml Intake Oral 420 ml Output Urine Total 1350 ml # Voids 1 General Appearance: no acute distress HEENT: normocephalic Respiratory/Chest: chest wall non-tender, lungs clear Cardiovascular: normal peripheral pulses, normal rate Abdomen: normal bowel sounds Current Medications Medications (Trade) Dose Ordered Sig/Leeroy Route PRN Reason Start Time Stop Time Status Last Admin Dose Admin Acetaminophen/ Hydrocodone Bitart ([place] 7.5/325) 1 tab Q4H PRN ORAL Moderate Pain (Pain Scale 4-6) 07/28/17 08:30 08/04/17 08:29 Cefepime HCl 2 gm/ Dextrose 55 ml @ 110 mls/hr Q12HR@0600,1800 IVPB 07/27/17 18:00 08/03/17 17:59 07/30/17 06:04 Dextrose (Dextrose 50%) 25 ml STAT PRN IV Hypoglycemia 07/25/17 20:45 08/24/17 20:44 Dextrose (Dextrose 50%) 50 ml STAT PRN IV Hypoglycemia 07/25/17 20:45 08/24/17 20:44 Diphenhydramine HCl (Benadryl) 25 mg Q6H PRN IVP Restlessness 07/25/17 21:45 08/24/17 21:44 Folic Acid (Folate) 1 mg DAILY ORAL 07/29/17 09:00 08/25/17 08:59 07/30/17 09:03 Heparin Sodium (Porcine) (Heparin 5000 units/ml) 5,000 units EVERY 8 HOURS SUBQ 07/28/17 22:00 08/24/17 21:59 07/30/17 06:05 Magnesium Hydroxide (Mom) 30 ml DAILYPRN PRN ORAL Constipation 07/28/17 08:30 08/27/17 08:29 Metoprolol Tartrate (Lopressor) 12.5 mg Q12HR ORAL 07/28/17 12:27 09/04/17 12:26 07/30/17 09:03 Ondansetron HCl (Zofran) 4 mg Q6HR PRN IVP Nausea & Vomiting 07/28/17 08:30 08/27/17 08:29 Oxycodone/ Acetaminophen (Percocet 5-325) 1 tab Q4H PRN ORAL Mild Pain (Pain Scale 1-3) 07/25/17 21:45 08/01/17 21:44 07/26/17 19:52 Senna/Docusate Sodium (Lindsay-Colace) 1 tab TWICE A DAY ORAL 07/28/17 18:00 08/27/17 17:59 07/30/17 09:03 Temazepam (Restoril) 7.5 mg DAILY PRN ORAL Insomnia 07/28/17 08:30 08/04/17 08:29 07/29/17 21:13 Terbinafine HCl (LamISIL) 250 mg DAILY ORAL 07/29/17 09:00 08/05/17 08:59 07/30/17 09:03 Thiamine HCl (Vitamin B1) 100 mg DAILY ORAL 07/29/17 09:00 08/28/17 08:59 07/30/17 09:03 Vancomycin HCl (Vanco rx to dose) 1 ea DAILY PRN MISC Per rx protocol 07/26/17 13:15 08/25/17 13:14 Vancomycin/Sodium Chloride 250 ml @ 166.667 mls/hr Q12H IVPB 07/29/17 14:00 08/03/17 13:59 07/30/17 02:09 Hay Crook MD July 30, 2017 09:47
[2017-07-30 10:47] LABS: BASOPHILS % (AUTO) 0.8 % (0.0-2.0); EOSINOPHILS % (AUTO) 2.2 % (0.0-3.0); HEMATOCRIT 32.2 % (42.0-52.0); HEMOGLOBIN 10.6 G/DL (14.2-18.0); LYMPHOCYTES % (AUTO) 12.2 % (20.0-45.0); MEAN CORPUSCULAR VOLUME 104 FL (80-99); MONOCYTES % (AUTO) 14.3 % (1.0-10.0); NEUTROPHILS % (AUTO) 70.5 % (45.0-75.0); PLATELET COUNT 276 K/UL (150-450); RED BLOOD COUNT 3.08 M/UL (4.70-6.10); RED CELL DISTRIBUTION WIDTH 18.5 % (11.6-14.8); WHITE BLOOD COUNT 11.2 K/UL (4.8-10.8)
--- NOTE | 2017-07-30 10:52 | GI Progress Note ---
Assessment/Plan Problems: (1) Abnormal LFTs ICD Codes: R94.5 - Abnormal results of liver function studies SNOMED: 940830408 (2) Anemia ICD Codes: D64.9 - Anemia, unspecified SNOMED: 882145385 (3) Alcohol intoxication ICD Codes: F10.129 - Alcohol abuse with intoxication, unspecified SNOMED: 42623670 (4) Fall ICD Codes: W19.XXXA - Unspecified fall, initial encounter SNOMED: 1495454, 144437487 Status: progressing Status Narrative Discussed with Dr. Villegas. Assessment/Plan severe anemia requiring blood transfusion with no active s/sx of bleed, receiving 2 units at this moment pending stress test today, needs clearance for ORIF Hx of EGD/colonoscopy x 4 years hepatitis panel negative abdominal U/S reviewed >> 1. Fatty liver. 2. Status post cholecystectomy. >> can cause transaminitis 3. 11 mm right renal cyst. anemia work up OB stool r/o GI bleed monitor H&H, prn transfusions bowel regime ppi trend LFTs fu labs outpatient GI procedures The patient was seen and examined at bedside and all new and available data was reviewed in the patients chart. I agree with the above findings, impression and plan. (Patient seen earlier today. Signature stamp does not reflect patient encounter time.). - Garrison Villegas MD Subjective Subjective limited Objective Last 24 Hour Vital Signs Date Time Temp Pulse Resp B/P (MAP) Pulse Ox O2 Delivery O2 Flow Rate FiO2 07/30/17 09:03 82 137/64 07/30/17 08:00 80 07/30/17 08:00 97.2 82 18 137/64 98 Room Air 97.2 07/30/17 04:00 98.0 73 20 155/72 99 Room Air 98.0 07/30/17 04:00 70 07/30/17 00:01 97.7 72 20 151/79 98 Room Air 97.7 07/30/17 00:00 72 07/29/17 21:13 85 130/71 07/29/17 21:00 97.0 85 20 130/71 98 Room Air 97.0 07/29/17 20:00 81 07/29/17 16:00 92 07/29/17 16:00 98.1 87 20 132/68 98 Room Air 98.1 07/29/17 12:00 72 07/29/17 12:00 97.1 72 20 145/75 98 Room Air 97.1 Intake and Output 07/29/17 07/30/17 19:00 07:00 Intake Total 420 ml Output Total 1350 ml Balance 420 ml -1350 ml Intake Oral 420 ml Output Urine Total 1350 ml # Voids 1 Laboratory Tests Test 07/30/17 09:55 White Blood Count 11.2 K/UL (4.8-10.8) H Red Blood Count 3.08 M/UL (4.70-6.10) L Hemoglobin 10.6 G/DL (14.2-18.0) L Hematocrit 32.2 % (42.0-52.0) L Mean Corpuscular Volume 104 FL (80-99) H Mean Corpuscular Hemoglobin 34.5 PG (27.0-31.0) H Mean Corpuscular Hemoglobin Concent 33.0 G/DL (32.0-36.0) Red Cell Distribution Width 18.5 % (11.6-14.8) H Platelet Count 276 K/UL (150-450) Mean Platelet Volume 6.0 FL (6.5-10.1) L Neutrophils (%) (Auto) 70.5 % (45.0-75.0) Lymphocytes (%) (Auto) 12.2 % (20.0-45.0) L Monocytes (%) (Auto) 14.3 % (1.0-10.0) H Eosinophils (%) (Auto) 2.2 % (0.0-3.0) Basophils (%) (Auto) 0.8 % (0.0-2.0) Sodium Level Pending Potassium Level Pending Chloride Level Pending Carbon Dioxide Level Pending Blood Urea Nitrogen Pending Creatinine Pending Estimat Glomerular Filtration Rate Pending Glucose Level Pending Calcium Level Pending Height (Feet): 5 Height (Inches): 8.00 Weight (Pounds): 150 General Appearance: WD/WN, no apparent distress, alert Cardiovascular: normal rate Respiratory/Chest: normal breath sounds, no respiratory distress Abdominal Exam: normal bowel sounds, non tender, soft Extremities: non-tender Jay Ochoa LEGAL PRACTICE MANAGER July 30, 2017 10:52
--- NOTE | 2017-07-30 11:08 | Diagnostic Imaging Report ---
Indications: Chest pain; PREOP Technique: See cardiology report for details of LexiScan stress testing. During LexiScan infusion, IV administration of 32.4 mCi 99 M technetium Myoview. SPECT and planar images obtained. SPECT images gated to 8 phases of the cardiac cycle were also obtained, and reformatted into cine images for evaluation of ejection fraction. Subsequent resting images obtained using IV administration of 10.1 mCi 99 M technetium Myoview. Comparison: none Findings: Physiologic findings from stress test. Max predicted heart rate was 143 bpm. 85% maximum heart rate 122 bpm. Baseline heart rate was 84 beats per minutes. End infusion heart rate was 97 beats per minutes. Baseline blood pressure was 131/80 and end-infusion blood pressure was 119/73. Infusion duration was 10 seconds, with symptoms of nausea and flushing after infusion. The clinical response to pharmacologic stress was nondiagnostic. The electrocardiographic response to pharmacologic stress was nonischemic. Perfusion imaging demonstrates apparent reversible perfusion defect involving the septum. Ejection fraction calculated to be 42%. IMPRESSION: Apparent reversible perfusion defect involving the septum. Possibility of septal ischemia is not excluded. Clinical correlation recommended. This corresponds with the preliminary report. Calculated ejection fraction 42%.
[2017-07-30 11:13] LABS: ALANINE AMINOTRANSFERASE 32 U/L (12-78); ALBUMIN/GLOBULIN RATIO 0.5 (1.0-2.7); ALKALINE PHOSPHATASE 84 U/L (46-116); ANION GAP 9 mmol/L (5-15); ASPARTATE AMINO TRANSFERASE 38 U/L (15-37); BILIRUBIN,TOTAL 1.1 MG/DL (0.2-1.0); BLOOD UREA NITROGEN 9 mg/dL (7-18); CALCIUM 7.9 MG/DL (8.5-10.1); CARBON DIOXIDE 22 MMOL/L (21-32); CHLORIDE 105 MMOL/L (98-107); CREATININE 0.8 MG/DL (0.55-1.30); POTASSIUM 3.3 MMOL/L (3.5-5.1); SODIUM 136 MMOL/L (136-145)
[2017-07-30 11:15] LABS: BILIRUBIN,DIRECT 0.3 MG/DL (0.0-0.3)
[2017-07-30 12:00] VITALS: BP 123/63
--- NOTE | 2017-07-30 13:02 | Consultation ---
History of Present Illness General Date patient seen: July 29, 2017 Chief Complaint: Multiple Trauma/Fall Referring physician: CHRISTEL VIDES Reason for Consultation: ANEMIA Present Illness HPI 77-year-old male, with mmp sustained the injury to his knee, the pt has been agitated and was placed in restraints. Psychiatry was consulted as the pt either needed a sitter or medications. During the eval the pt has waxing and waning of consciousness and was a poor historian. Allergies: Coded Allergies: No Known Allergies (Unverified , 08/23/15) Medication History Scheduled No Known Medications* (NKM - No Known Medications*), 0 ., (Reported) Patient History Limited by: medical condition History Provided By: Patient, Medical Record, PMD Healthcare decision maker Resuscitation status Full Code Advanced Directive on File Past Medical/Surgical History Past Medical/Surgical History: (1) Head injury (2) Foot fracture (3) Scalp laceration (4) Fall (5) Onychomycosis (6) Sepsis (7) UTI (urinary tract infection) (8) GENTRY (acute kidney injury) (9) Alcohol intoxication (10) Anemia (11) Encephalopathy (12) Abnormal LFTs (13) Hip fracture, left (14) Urinary (tract) obstruction Review of Systems Psychiatric: Reports: anxiety, depressed feelings, emotional problems Physical Exam General Appearance: WD/WN, no apparent distress, alert, agitated Neurologic: alert, responsive Last 24 Hour Vital Signs Date Time Temp Pulse Resp B/P (MAP) Pulse Ox O2 Delivery O2 Flow Rate FiO2 07/30/17 10:48 97.2 07/30/17 09:03 82 137/64 07/30/17 08:00 80 07/30/17 08:00 97.2 82 18 137/64 98 Room Air 97.2 07/30/17 04:00 98.0 73 20 155/72 99 Room Air 98.0 07/30/17 04:00 70 07/30/17 00:01 97.7 72 20 151/79 98 Room Air 97.7 07/30/17 00:00 72 07/29/17 21:13 85 130/71 07/29/17 21:00 97.0 85 20 130/71 98 Room Air 97.0 07/29/17 20:00 81 07/29/17 16:00 92 5/13/18 16:00 98.1 87 20 132/68 98 Room Air 98.1 Intake and Output 07/29/17 07/30/17 19:00 07:00 Intake Total 420 ml Output Total 1350 ml Balance 420 ml -1350 ml Intake Oral 420 ml Output Urine Total 1350 ml # Voids 1 Laboratory Tests Test 07/30/17 09:55 White Blood Count 11.2 K/UL (4.8-10.8) H Red Blood Count 3.08 M/UL (4.70-6.10) L Hemoglobin 10.6 G/DL (14.2-18.0) L Hematocrit 32.2 % (42.0-52.0) L Mean Corpuscular Volume 104 FL (80-99) H Mean Corpuscular Hemoglobin 34.5 PG (27.0-31.0) H Mean Corpuscular Hemoglobin Concent 33.0 G/DL (32.0-36.0) Red Cell Distribution Width 18.5 % (11.6-14.8) H Platelet Count 276 K/UL (150-450) Mean Platelet Volume 6.0 FL (6.5-10.1) L Neutrophils (%) (Auto) 70.5 % (45.0-75.0) Lymphocytes (%) (Auto) 12.2 % (20.0-45.0) L Monocytes (%) (Auto) 14.3 % (1.0-10.0) H Eosinophils (%) (Auto) 2.2 % (0.0-3.0) Basophils (%) (Auto) 0.8 % (0.0-2.0) Sodium Level 136 MMOL/L (136-145) Potassium Level 3.3 MMOL/L (3.5-5.1) L Chloride Level 105 MMOL/L (98-107) Carbon Dioxide Level 22 MMOL/L (21-32) Anion Gap 9 mmol/L (5-15) Blood Urea Nitrogen 9 mg/dL (7-18) Creatinine 0.8 MG/DL (0.55-1.30) Estimat Glomerular Filtration Rate mL/min (>60) Glucose Level 127 MG/DL (74-106) H Calcium Level 7.9 MG/DL (8.5-10.1) L Total Bilirubin 1.1 MG/DL (0.2-1.0) H Direct Bilirubin 0.3 MG/DL (0.0-0.3) Aspartate Amino Transf (AST/SGOT) 38 U/L (15-37) H Alanine Aminotransferase (ALT/SGPT) 32 U/L (12-78) Alkaline Phosphatase 84 U/L (46-116) Total Protein 6.0 G/DL (6.4-8.2) L Albumin 2.0 G/DL (3.4-5.0) L Globulin 4.0 g/dL Albumin/Globulin Ratio 0.5 (1.0-2.7) L Height (Feet): 5 Height (Inches): 8.00 Weight (Pounds): 150 Medications Current Medications Medications (Trade) Dose Ordered Sig/Leeroy Route PRN Reason Start Time Stop Time Status Last Admin Dose Admin Acetaminophen/ Hydrocodone Bitart ([place] 7.5/325) 1 tab Q4H PRN ORAL Moderate Pain (Pain Scale 4-6) 07/28/17 08:30 08/04/17 08:29 07/30/17 10:48 Cefepime HCl 2 gm/ Dextrose 55 ml @ 110 mls/hr Q12HR@0600,1800 IVPB 07/27/17 18:00 08/03/17 17:59 07/30/17 06:04 Dextrose (Dextrose 50%) 25 ml STAT PRN IV Hypoglycemia 07/25/17 20:45 08/24/17 20:44 Dextrose (Dextrose 50%) 50 ml STAT PRN IV Hypoglycemia 07/25/17 20:45 08/24/17 20:44 Diphenhydramine HCl (Benadryl) 25 mg Q6H PRN IVP Restlessness 07/25/17 21:45 08/24/17 21:44 Folic Acid (Folate) 1 mg DAILY ORAL 07/29/17 09:00 08/25/17 08:59 07/30/17 09:03 Heparin Sodium (Porcine) (Heparin 5000 units/ml) 5,000 units EVERY 8 HOURS SUBQ 07/28/17 22:00 08/24/17 21:59 07/30/17 06:05 Magnesium Hydroxide (Mom) 30 ml DAILYPRN PRN ORAL Constipation 07/28/17 08:30 08/27/17 08:29 Metoprolol Tartrate (Lopressor) 12.5 mg Q12HR ORAL 07/28/17 12:27 09/04/17 12:26 07/30/17 09:03 Ondansetron HCl (Zofran) 4 mg Q6HR PRN IVP Nausea & Vomiting 07/28/17 08:30 08/27/17 08:29 Oxycodone/ Acetaminophen (Percocet 5-325) 1 tab Q4H PRN ORAL Mild Pain (Pain Scale 1-3) 07/25/17 21:45 08/01/17 21:44 07/26/17 19:52 Potassium Chloride 100 ml @ 100 mls/hr Q1H IVPB 07/30/17 12:45 07/30/17 14:44 Quetiapine Fumarate (SEROquel) 25 mg Q6H PRN ORAL anxiety 07/30/17 11:45 08/29/17 11:44 Senna/Docusate Sodium ([place]-Colace) 1 tab TWICE A DAY ORAL 07/28/17 18:00 08/27/17 17:59 07/30/17 09:03 Temazepam (Restoril) 7.5 mg DAILY PRN ORAL Insomnia 07/28/17 08:30 08/04/17 08:29 07/29/17 21:13 Terbinafine HCl (LamISIL) 250 mg DAILY ORAL 07/29/17 09:00 08/05/17 08:59 07/30/17 09:03 Thiamine HCl (Vitamin B1) 100 mg DAILY ORAL 07/29/17 09:00 08/28/17 08:59 07/30/17 09:03 Vancomycin HCl (Vanco rx to dose) 1 ea DAILY PRN MISC Per rx protocol 07/26/17 13:15 08/25/17 13:14 Vancomycin/Sodium Chloride 250 ml @ 166.667 mls/hr Q12H IVPB 07/29/17 14:00 08/03/17 13:59 07/30/17 02:09 Assessment/Plan Status: not improved, unchanged Assessment/Plan encephalopathy -Seroquel 25mg q 6hr prn -dc restraints when pt is not agitated Morris Aguayo M.D. July 30, 2017 13:02
--- NOTE | 2017-07-30 14:10 | Infectious Diseases Prog Note ---
Assessment/Plan Problems: (1) Sepsis Assessment & Plan: blood culture remains negative so far , will stop vancomycin with cefepime empirically , monitor WBC (2) UTI (urinary tract infection) Assessment & Plan: urine culture is negative so far , will stop cefepime empirically (3) Onychomycosis Assessment & Plan: severe, continue lamasil for 3 months (4) Hip fracture, left Assessment & Plan: S/P ORIF , continue pain control , ortho is following (5) GENTRY (acute kidney injury) Assessment & Plan: due to the above, continue hydration and renally dosed antibiotics, pharmacy is following Subjective Constitutional: Reports: no symptoms HEENT: Reports: no symptoms Respiratory: Reports: no symptoms Breasts: Reports: no symptoms Cardiovascular: Reports: no symptoms Gastrointestinal/Abdominal: Reports: no symptoms Genitourinary: Reports: no symptoms Neurologic: Reports: no symptoms Psychiatric: Reports: no symptoms Skin: Reports: no symptoms Endocrine: Reports: no symptoms Hematologic: Reports: no symptoms Musculoskeletal: Reports: no symptoms Allergies: Coded Allergies: No Known Allergies (Unverified , 08/23/15) Subjective he was doing well up in bed, eating lunch , not in distress , had left hip ORIF Objective Vital Signs Last 24 Hour Vital Signs Date Time Temp Pulse Resp B/P (MAP) Pulse Ox O2 Delivery O2 Flow Rate FiO2 07/30/17 10:48 97.2 07/30/17 09:03 82 137/64 07/30/17 08:00 80 07/30/17 08:00 97.2 82 18 137/64 98 Room Air 97.2 07/30/17 04:00 98.0 73 20 155/72 99 Room Air 98.0 07/30/17 04:00 70 07/30/17 00:01 97.7 72 20 151/79 98 Room Air 97.7 07/30/17 00:00 72 07/29/17 21:13 85 130/71 07/29/17 21:00 97.0 85 20 130/71 98 Room Air 97.0 07/29/17 20:00 81 07/29/17 16:00 92 07/29/17 16:00 98.1 87 20 132/68 98 Room Air 98.1 Height (Feet): 5 Height (Inches): 8.00 Weight (Pounds): 150 General Appearance: WD/WN, no acute distress, cachetic HEENT: normocephalic, atraumatic, anicteric, mucous membranes moist, PERRL Respiratory/Chest: chest wall non-tender, normal breath sounds, no respiratory distress, no accessory muscle use, decreased breath sounds Cardiovascular: normal peripheral pulses, normal rate, regular rhythm, no gallop/murmur, no JVD Abdomen: normal bowel sounds, soft, non tender, no organomegaly, non distended , no mass, no scars Extremities: no cyanosis, no clubbing Skin: no rash, no lesions, no ulcers Neurologic/Psychiatric: alert, oriented x 3, responsive Laboratory Tests Test 07/30/17 09:55 White Blood Count 11.2 K/UL (4.8-10.8) H Red Blood Count 3.08 M/UL (4.70-6.10) L Hemoglobin 10.6 G/DL (14.2-18.0) L Hematocrit 32.2 % (42.0-52.0) L Mean Corpuscular Volume 104 FL (80-99) H Mean Corpuscular Hemoglobin 34.5 PG (27.0-31.0) H Mean Corpuscular Hemoglobin Concent 33.0 G/DL (32.0-36.0) Red Cell Distribution Width 18.5 % (11.6-14.8) H Platelet Count 276 K/UL (150-450) Mean Platelet Volume 6.0 FL (6.5-10.1) L Neutrophils (%) (Auto) 70.5 % (45.0-75.0) Lymphocytes (%) (Auto) 12.2 % (20.0-45.0) L Monocytes (%) (Auto) 14.3 % (1.0-10.0) H Eosinophils (%) (Auto) 2.2 % (0.0-3.0) Basophils (%) (Auto) 0.8 % (0.0-2.0) Sodium Level 136 MMOL/L (136-145) Potassium Level 3.3 MMOL/L (3.5-5.1) L Chloride Level 105 MMOL/L (98-107) Carbon Dioxide Level 22 MMOL/L (21-32) Anion Gap 9 mmol/L (5-15) Blood Urea Nitrogen 9 mg/dL (7-18) Creatinine 0.8 MG/DL (0.55-1.30) Estimat Glomerular Filtration Rate mL/min (>60) Glucose Level 127 MG/DL (74-106) H Calcium Level 7.9 MG/DL (8.5-10.1) L Total Bilirubin 1.1 MG/DL (0.2-1.0) H Direct Bilirubin 0.3 MG/DL (0.0-0.3) Aspartate Amino Transf (AST/SGOT) 38 U/L (15-37) H Alanine Aminotransferase (ALT/SGPT) 32 U/L (12-78) Alkaline Phosphatase 84 U/L (46-116) Total Protein 6.0 G/DL (6.4-8.2) L Albumin 2.0 G/DL (3.4-5.0) L Globulin 4.0 g/dL Albumin/Globulin Ratio 0.5 (1.0-2.7) L Current Medications Medications (Trade) Dose Ordered Sig/Leeroy Route PRN Reason Start Time Stop Time Status Last Admin Dose Admin Acetaminophen/ Hydrocodone Bitart ([place] 7.5/325) 1 tab Q4H PRN ORAL Moderate Pain (Pain Scale 4-6) 07/28/17 08:30 08/04/17 08:29 07/30/17 10:48 Cefepime HCl 2 gm/ Dextrose 55 ml @ 110 mls/hr Q12HR@0600,1800 IVPB 07/27/17 18:00 08/03/17 17:59 07/30/17 06:04 Dextrose (Dextrose 50%) 25 ml STAT PRN IV Hypoglycemia 07/25/17 20:45 08/24/17 20:44 Dextrose (Dextrose 50%) 50 ml STAT PRN IV Hypoglycemia 07/25/17 20:45 08/24/17 20:44 Diphenhydramine HCl (Benadryl) 25 mg Q6H PRN IVP Restlessness 07/25/17 21:45 08/24/17 21:44 Folic Acid (Folate) 1 mg DAILY ORAL 07/29/17 09:00 08/25/17 08:59 07/30/17 09:03 Heparin Sodium (Porcine) (Heparin 5000 units/ml) 5,000 units EVERY 8 HOURS SUBQ 07/28/17 22:00 08/24/17 21:59 07/30/17 06:05 Magnesium Hydroxide (Mom) 30 ml DAILYPRN PRN ORAL Constipation 07/28/17 08:30 08/27/17 08:29 Metoprolol Tartrate (Lopressor) 12.5 mg Q12HR ORAL 07/28/17 12:27 09/04/17 12:26 07/30/17 09:03 Ondansetron HCl (Zofran) 4 mg Q6HR PRN IVP Nausea & Vomiting 07/28/17 08:30 08/27/17 08:29 Oxycodone/ Acetaminophen (Percocet 5-325) 1 tab Q4H PRN ORAL Mild Pain (Pain Scale 1-3) 07/25/17 21:45 08/01/17 21:44 07/26/17 19:52 Potassium Chloride 100 ml @ 100 mls/hr Q1H IVPB 07/30/17 12:45 07/30/17 14:44 07/30/17 12:49 Quetiapine Fumarate (SEROquel) 25 mg Q6H PRN ORAL anxiety 07/30/17 11:45 08/29/17 11:44 07/30/17 12:42 Senna/Docusate Sodium ([place]-Colace) 1 tab TWICE A DAY ORAL 07/28/17 18:00 08/27/17 17:59 07/30/17 09:03 Temazepam (Restoril) 7.5 mg DAILY PRN ORAL Insomnia 07/28/17 08:30 08/04/17 08:29 07/29/17 21:13 Terbinafine HCl (LamISIL) 250 mg DAILY ORAL 07/29/17 09:00 08/05/17 08:59 07/30/17 09:03 Thiamine HCl (Vitamin B1) 100 mg DAILY ORAL 07/29/17 09:00 08/28/17 08:59 07/30/17 09:03 Vancomycin HCl (Vanco rx to dose) 1 ea DAILY PRN MISC Per rx protocol 07/26/17 13:15 08/25/17 13:14 Vancomycin/Sodium Chloride 250 ml @ 166.667 mls/hr Q12H IVPB 07/29/17 14:00 08/03/17 13:59 07/30/17 02:09 Kee Mcfarlane M.D. July 30, 2017 14:10
--- NOTE | 2017-07-30 14:31 | Cardiac Electrophysiology PN ---
Assessment/Plan Assessment/Plan 1. Troponin elevation. Likely due to rhabdomyolysis and very high CPK as well as CK-MB of 63. Denies any chest pain. Denies any prior myocardial infarction or known coronary artery disease. EKG does not show any active ischemia even though he has bifascicular block. EF 55% Continue Lopressor 12.5 bid. Stress test showed only possible ischemia. Tolerated the surgery well with no cardiac issues. 2. Rhabdomyolysis. Renal failure is now resolved 3. Hyponatremia, improved. 4. History of heavy alcohol and tobacco use. 5. Anemia with Hb 10 down to 7.6. Getting 2 units PRBC 6. Left Hip Fx. S/P Left ORIF DW RN Subjective Subjective No events overnight. In SR. Pulled out his IV that was replaced. No chest pain or SOB.Awaiting SNIF placement Objective Last 24 Hour Vital Signs Date Time Temp Pulse Resp B/P (MAP) Pulse Ox O2 Delivery O2 Flow Rate FiO2 07/30/17 10:48 97.2 07/30/17 09:03 82 137/64 07/30/17 08:00 80 07/30/17 08:00 97.2 82 18 137/64 98 Room Air 97.2 07/30/17 04:00 98.0 73 20 155/72 99 Room Air 98.0 07/30/17 04:00 70 07/30/17 00:01 97.7 72 20 151/79 98 Room Air 97.7 07/30/17 00:00 72 07/29/17 21:13 85 130/71 07/29/17 21:00 97.0 85 20 130/71 98 Room Air 97.0 07/29/17 20:00 81 07/29/17 16:00 92 07/29/17 16:00 98.1 87 20 132/68 98 Room Air 98.1 Intake and Output 07/29/17 07/30/17 19:00 07:00 Intake Total 420 ml Output Total 1350 ml Balance 420 ml -1350 ml Intake Oral 420 ml Output Urine Total 1350 ml # Voids 1 Laboratory Tests Test 07/30/17 09:55 White Blood Count 11.2 K/UL (4.8-10.8) H Red Blood Count 3.08 M/UL (4.70-6.10) L Hemoglobin 10.6 G/DL (14.2-18.0) L Hematocrit 32.2 % (42.0-52.0) L Mean Corpuscular Volume 104 FL (80-99) H Mean Corpuscular Hemoglobin 34.5 PG (27.0-31.0) H Mean Corpuscular Hemoglobin Concent 33.0 G/DL (32.0-36.0) Red Cell Distribution Width 18.5 % (11.6-14.8) H Platelet Count 276 K/UL (150-450) Mean Platelet Volume 6.0 FL (6.5-10.1) L Neutrophils (%) (Auto) 70.5 % (45.0-75.0) Lymphocytes (%) (Auto) 12.2 % (20.0-45.0) L Monocytes (%) (Auto) 14.3 % (1.0-10.0) H Eosinophils (%) (Auto) 2.2 % (0.0-3.0) Basophils (%) (Auto) 0.8 % (0.0-2.0) Sodium Level 136 MMOL/L (136-145) Potassium Level 3.3 MMOL/L (3.5-5.1) L Chloride Level 105 MMOL/L (98-107) Carbon Dioxide Level 22 MMOL/L (21-32) Anion Gap 9 mmol/L (5-15) Blood Urea Nitrogen 9 mg/dL (7-18) Creatinine 0.8 MG/DL (0.55-1.30) Estimat Glomerular Filtration Rate mL/min (>60) Glucose Level 127 MG/DL (74-106) H Calcium Level 7.9 MG/DL (8.5-10.1) L Total Bilirubin 1.1 MG/DL (0.2-1.0) H Direct Bilirubin 0.3 MG/DL (0.0-0.3) Aspartate Amino Transf (AST/SGOT) 38 U/L (15-37) H Alanine Aminotransferase (ALT/SGPT) 32 U/L (12-78) Alkaline Phosphatase 84 U/L (46-116) Total Protein 6.0 G/DL (6.4-8.2) L Albumin 2.0 G/DL (3.4-5.0) L Globulin 4.0 g/dL Albumin/Globulin Ratio 0.5 (1.0-2.7) L Objective HEAD AND NECK: Shows no JVD. LUNGS: Clear. CARDIOVASCULAR: Shows regular S1 and S2 with no gallop or murmur. ABDOMEN: Soft. EXTREMITIES: No pitting edema.S/P L Hip surgery. Preet Spencer MD July 30, 2017 14:31
[2017-07-30 16:00] VITALS: BP 119/67
[2017-07-30] MEDS ORDERED: Tubing IV Secondary IV ONE (17:01)
[2017-07-30] MEDS ORDERED: NS 275ml ONE (17:01)
[2017-07-30 19:56] VITALS: BP 126/68
[2017-07-31] VITALS (7 sets, daily range): BP systolic 122–155; BP diastolic 62–77
[2017-07-31] MEDS: Heparin 5000 units/ml inj SUBQ SCH ×3 (06:00→21:11)
--- NOTE | 2017-07-31 08:13 | Nephrology Progress Note ---
Assessment/Plan Assessment/Plan 1. Acute intertrochanteric fracture of left femur/Hip - patient s/p surgical correction. - awaiting rehab placement 2. Leukocytosis- resolved, Abx mgmt per ID. 4. DVT prophylaxsis- with heparing sub q q 8hrs 5. GENTRY- resolved 6. Rhabdomyolysis- resolved 7. Anemia- Hgb stable 8. Tiny right basilar pneumothorax. Extensive bullous emphysema - appreciate Pulmonary, stable 9. Hypokalemia- replace prn. Am labs pending 10. Urinary retention- post op. White in place. Will need bladder training Subjective Date patient seen: July 31, 2017 Time patient seen: 08:10 ROS Limited/Unobtainable: No Allergies: Coded Allergies: No Known Allergies (Unverified , 08/23/15) All Systems: reviewed and negative except above Subjective Patient had hip surgery and much improved. Is ambulatory with assistance Objective Last 24 Hour Vital Signs Date Time Temp Pulse Resp B/P (MAP) Pulse Ox O2 Delivery O2 Flow Rate FiO2 07/31/17 04:00 63 07/31/17 04:00 98.6 67 20 148/71 96 Room Air 98.6 07/31/17 00:00 70 07/31/17 00:00 97.2 73 20 155/76 98 Room Air 97.2 07/30/17 22:09 77 126/68 07/30/17 20:00 70 07/30/17 19:56 98.2 77 20 126/68 98 Room Air 98.2 07/30/17 16:00 79 07/30/17 16:00 97.4 63 20 119/67 98 Room Air 97.4 07/30/17 12:00 98.2 75 20 123/63 98 Room Air 98.2 07/30/17 12:00 73 07/30/17 10:48 97.2 07/30/17 09:03 82 137/64 Intake and Output 07/30/17 07/31/17 19:00 07:00 Intake Total 360 ml Output Total 800 ml 0 ml Balance -440 ml 0 ml Intake Oral 360 ml Output Urine Total 800 ml 0 ml Laboratory Tests 07/30/17 09:55: White Blood Count 11.2H, Red Blood Count 3.08L, Hemoglobin 10.6L, Hematocrit 32.2L, Mean Corpuscular Volume 104H, Mean Corpuscular Hemoglobin 34.5H, Mean Corpuscular Hemoglobin Concent 33.0, Red Cell Distribution Width 18.5H, Platelet Count 276, Mean Platelet Volume 6.0L, Neutrophils (%) (Auto) 70.5, Lymphocytes (%) (Auto) 12.2L, Monocytes (%) (Auto) 14.3H, Eosinophils (%) (Auto ) 2.2, Basophils (%) (Auto) 0.8, Sodium Level 136, Potassium Level 3.3L, Chloride Level 105, Carbon Dioxide Level 22, Anion Gap 9, Blood Urea Nitrogen 9 , Creatinine 0.8, Estimat Glomerular Filtration Rate , Glucose Level 127H, Calcium Level 7.9L, Total Bilirubin 1.1H, Direct Bilirubin 0.3, Aspartate Amino Transf (AST/SGOT) 38H, Alanine Aminotransferase (ALT/SGPT) 32, Alkaline Phosphatase 84, Total Protein 6.0L, Albumin 2.0L, Globulin 4.0, Albumin/ Globulin Ratio 0.5L Height (Feet): 5 Height (Inches): 8.00 Weight (Pounds): 150 General Appearance: WD/WN, no apparent distress EENT: PERRL/EOMI, normal ENT inspection Neck: non-tender, normal alignment Cardiovascular: normal rate, regular rhythm Respiratory/Chest: lungs clear, normal breath sounds Edema: no edema noted Arm (L), no edema noted Arm (R), no edema noted Leg (L), no edema noted Leg (R), no edema noted Pedal (L), no edema noted Pedal (R), no edema noted Generalized Tien Nielsen M.D. July 31, 2017 08:13
[2017-07-31] MEDS: Thiamine 100mg tab ORAL SCH (08:32)
[2017-07-31] MEDS: Docusate Sod/Senna tab ORAL SCH ×2 (08:32→17:42)
[2017-07-31] MEDS: Metoprolol Tartrate 12.5mg TAB ORAL SCH ×2 (08:33→21:05)
[2017-07-31 09:31] LABS: BASOPHILS % (AUTO) 0.7 % (0.0-2.0); EOSINOPHILS % (AUTO) 1.4 % (0.0-3.0); HEMATOCRIT 30.1 % (42.0-52.0); LYMPHOCYTES % (AUTO) 11.1 % (20.0-45.0); MEAN CORPUSCULAR VOLUME 105 FL (80-99); MONOCYTES % (AUTO) 11.7 % (1.0-10.0); PLATELET COUNT 333 K/UL (150-450); RED BLOOD COUNT 2.88 M/UL (4.70-6.10); WHITE BLOOD COUNT 11.5 K/UL (4.8-10.8)
[2017-07-31 09:53] LABS: ANION GAP 8 mmol/L (5-15); BLOOD UREA NITROGEN 10 mg/dL (7-18); CALCIUM 8.1 MG/DL (8.5-10.1); CARBON DIOXIDE 25 MMOL/L (21-32); CHLORIDE 104 MMOL/L (98-107); POTASSIUM 3.4 MMOL/L (3.5-5.1); SODIUM 136 MMOL/L (136-145)
--- NOTE | 2017-07-31 13:23 | GI Progress Note ---
Assessment/Plan Problems: (1) Abnormal LFTs ICD Codes: R94.5 - Abnormal results of liver function studies SNOMED: 277591379 (2) Anemia ICD Codes: D64.9 - Anemia, unspecified SNOMED: 685580428 (3) Alcohol intoxication ICD Codes: F10.129 - Alcohol abuse with intoxication, unspecified SNOMED: 43967860 (4) Fall ICD Codes: W19.XXXA - Unspecified fall, initial encounter SNOMED: 9322906, 400424537 Status: stable Status Narrative Discussed with Dr. Villegas. Assessment/Plan severe anemia requiring blood transfusion with no active s/sx of bleed >> stable H&H s/p Open reduction and internal fixation of left intertrochanteric hip fracture with intramedullary device. Hx of EGD/colonoscopy x 4 years hepatitis panel negative abdominal U/S reviewed >> 1. Fatty liver. 2. Status post cholecystectomy 3. 11 mm right renal cyst. OB stool r/o GI bleed monitor H&H, prn transfusions bowel regime ppi trend LFTs fu labs outpatient GI procedures The patient was seen and examined at bedside and all new and available data was reviewed in the patients chart. I agree with the above findings, impression and plan. (Patient seen earlier today. Signature stamp does not reflect patient encounter time.). - Garrison Villegas MD Subjective Subjective had BM today Objective Last 24 Hour Vital Signs Date Time Temp Pulse Resp B/P (MAP) Pulse Ox O2 Delivery O2 Flow Rate FiO2 07/31/17 08:33 65 145/63 07/31/17 08:00 97.8 58 18 145/63 96 Room Air 97.8 07/31/17 04:00 63 07/31/17 04:00 98.6 67 20 148/71 96 Room Air 98.6 07/31/17 00:00 70 07/31/17 00:00 97.2 73 20 155/76 98 Room Air 97.2 07/30/17 22:09 77 126/68 07/30/17 20:00 70 07/30/17 19:56 98.2 77 20 126/68 98 Room Air 98.2 07/30/17 16:00 79 07/30/17 16:00 97.4 63 20 119/67 98 Room Air 97.4 Intake and Output 07/30/17 07/31/17 19:00 07:00 Intake Total 360 ml Output Total 800 ml 0 ml Balance -440 ml 0 ml Intake Oral 360 ml Output Urine Total 800 ml 0 ml Laboratory Tests Test 07/31/17 09:20 07/31/17 12:50 White Blood Count 11.5 K/UL (4.8-10.8) H Red Blood Count 2.88 M/UL (4.70-6.10) L Hemoglobin 10.0 G/DL (14.2-18.0) L Hematocrit 30.1 % (42.0-52.0) L Mean Corpuscular Volume 105 FL (80-99) H Mean Corpuscular Hemoglobin 34.6 PG (27.0-31.0) H Mean Corpuscular Hemoglobin Concent 33.1 G/DL (32.0-36.0) Red Cell Distribution Width 18.0 % (11.6-14.8) H Platelet Count 333 K/UL (150-450) Mean Platelet Volume 5.8 FL (6.5-10.1) L Neutrophils (%) (Auto) 75.0 % (45.0-75.0) Lymphocytes (%) (Auto) 11.1 % (20.0-45.0) L Monocytes (%) (Auto) 11.7 % (1.0-10.0) H Eosinophils (%) (Auto) 1.4 % (0.0-3.0) Basophils (%) (Auto) 0.7 % (0.0-2.0) Sodium Level 136 MMOL/L (136-145) Potassium Level 3.4 MMOL/L (3.5-5.1) L Chloride Level 104 MMOL/L (98-107) Carbon Dioxide Level 25 MMOL/L (21-32) Anion Gap 8 mmol/L (5-15) Blood Urea Nitrogen 10 mg/dL (7-18) Creatinine 1.0 MG/DL (0.55-1.30) Estimat Glomerular Filtration Rate mL/min (>60) Glucose Level 161 MG/DL (74-106) H Calcium Level 8.1 MG/DL (8.5-10.1) L Vancomycin Level Trough Pending Height (Feet): 5 Height (Inches): 8.00 Weight (Pounds): 150 General Appearance: WD/WN, no apparent distress, alert Cardiovascular: normal rate Respiratory/Chest: normal breath sounds, no respiratory distress Abdominal Exam: normal bowel sounds, non tender, soft Extremities: non-tender Jay Ochoa NP July 31, 2017 13:23
--- NOTE | 2017-07-31 13:50 | Pulmonology Progress Note ---
Assessment/Plan Assessment/Plan IMPRESSION: 1. Loculated right pneumothorax. 2. Hip fracture. S/p ORIF 3. Severe bullous lung disease/emphysema DISCUSSION: respiratory care oxygen avoidance of excess sedation if possible impression, plan, and exam edited and reviewed in detail care discussed with RN Subjective Interval Events: no new reported complaint Constitutional: Reports: no symptoms HEENT: Repors: no symptoms Respiratory: Reports: no symptoms Gastrointestinal/Abdominal: Reports: no symptoms Allergies: Coded Allergies: No Known Allergies (Unverified , 08/23/15) Objective Last 24 Hour Vital Signs Date Time Temp Pulse Resp B/P (MAP) Pulse Ox O2 Delivery O2 Flow Rate FiO2 07/31/17 12:00 99.5 73 18 122/64 98 Room Air 99.5 07/31/17 08:33 65 145/63 07/31/17 08:00 97.8 58 18 145/63 96 Room Air 97.8 07/31/17 04:00 63 07/31/17 04:00 98.6 67 20 148/71 96 Room Air 98.6 07/31/17 00:00 70 07/31/17 00:00 97.2 73 20 155/76 98 Room Air 97.2 07/30/17 22:09 77 126/68 07/30/17 20:00 70 07/30/17 19:56 98.2 77 20 126/68 98 Room Air 98.2 07/30/17 16:00 79 07/30/17 16:00 97.4 63 20 119/67 98 Room Air 97.4 Intake and Output 07/30/17 07/31/17 19:00 07:00 Intake Total 360 ml Output Total 800 ml 0 ml Balance -440 ml 0 ml Intake Oral 360 ml Output Urine Total 800 ml 0 ml General Appearance: no acute distress HEENT: normocephalic Respiratory/Chest: chest wall non-tender, lungs clear Cardiovascular: normal peripheral pulses, normal rate Abdomen: normal bowel sounds, soft, non tender Laboratory Tests 07/31/17 09:20: White Blood Count 11.5H, Red Blood Count 2.88L, Hemoglobin 10.0L, Hematocrit 30.1L, Mean Corpuscular Volume 105H, Mean Corpuscular Hemoglobin 34.6H, Mean Corpuscular Hemoglobin Concent 33.1, Red Cell Distribution Width 18.0H, Platelet Count 333, Mean Platelet Volume 5.8L, Neutrophils (%) (Auto) 75.0, Lymphocytes (%) (Auto) 11.1L, Monocytes (%) (Auto) 11.7H, Eosinophils (%) (Auto ) 1.4, Basophils (%) (Auto) 0.7, Sodium Level 136, Potassium Level 3.4L, Chloride Level 104, Carbon Dioxide Level 25, Anion Gap 8, Blood Urea Nitrogen 10 , Creatinine 1.0, Estimat Glomerular Filtration Rate , Glucose Level 161H, Calcium Level 8.1L 07/31/17 12:50: Vancomycin Level Trough 5.4 Current Medications Medications (Trade) Dose Ordered Sig/Leeroy Route PRN Reason Start Time Stop Time Status Last Admin Dose Admin Acetaminophen/ Hydrocodone Bitart ([place] 7.5/325) 1 tab Q4H PRN ORAL Moderate Pain (Pain Scale 4-6) 07/28/17 08:30 08/04/17 08:29 07/30/17 10:48 Dextrose (Dextrose 50%) 25 ml STAT PRN IV Hypoglycemia 07/25/17 20:45 08/24/17 20:44 Dextrose (Dextrose 50%) 50 ml STAT PRN IV Hypoglycemia 07/25/17 20:45 08/24/17 20:44 Diphenhydramine HCl (Benadryl) 25 mg Q6H PRN IVP Restlessness 07/25/17 21:45 08/24/17 21:44 Folic Acid (Folate) 1 mg DAILY ORAL 07/29/17 09:00 08/25/17 08:59 07/31/17 08:33 Heparin Sodium (Porcine) (Heparin 5000 units/ml) 5,000 units EVERY 8 HOURS SUBQ 07/28/17 22:00 08/24/17 21:59 07/30/17 22:11 Magnesium Hydroxide (Mom) 30 ml DAILYPRN PRN ORAL Constipation 07/28/17 08:30 08/27/17 08:29 Metoprolol Tartrate (Lopressor) 12.5 mg Q12HR ORAL 07/28/17 12:27 09/04/17 12:26 07/31/17 08:33 Ondansetron HCl (Zofran) 4 mg Q6HR PRN IVP Nausea & Vomiting 07/28/17 08:30 08/27/17 08:29 Oxycodone/ Acetaminophen (Percocet 5-325) 1 tab Q4H PRN ORAL Mild Pain (Pain Scale 1-3) 07/25/17 21:45 08/01/17 21:44 07/26/17 19:52 Quetiapine Fumarate (SEROquel) 25 mg Q6H PRN ORAL anxiety 07/30/17 11:45 08/29/17 11:44 07/30/17 12:42 Senna/Docusate Sodium ([place]-Colace) 1 tab TWICE A DAY ORAL 07/28/17 18:00 08/27/17 17:59 07/31/17 08:32 Temazepam (Restoril) 7.5 mg DAILY PRN ORAL Insomnia 07/28/17 08:30 08/04/17 08:29 07/29/17 21:13 Terbinafine HCl (LamISIL) 250 mg DAILY ORAL 07/29/17 09:00 08/05/17 08:59 07/31/17 08:32 Thiamine HCl (Vitamin B1) 100 mg DAILY ORAL 07/29/17 09:00 08/28/17 08:59 07/31/17 08:32 Hay Crook MD July 31, 2017 13:50
--- NOTE | 2017-07-31 14:25 | General Progress Note ---
Assessment/Plan Assessment/Plan encephalopathy -Seroquel 25mg q 6hr prn -dc restraints when pt is not agitated Subjective Date patient seen: July 31, 2017 Neurologic/Psychiatric: Reports: anxiety, emotional problems Allergies: Coded Allergies: No Known Allergies (Unverified , 08/23/15) Objective Last 24 Hour Vital Signs Date Time Temp Pulse Resp B/P (MAP) Pulse Ox O2 Delivery O2 Flow Rate FiO2 07/31/17 12:00 99.5 73 18 122/64 98 Room Air 99.5 07/31/17 08:33 65 145/63 07/31/17 08:00 64 07/31/17 08:00 97.8 58 18 145/63 96 Room Air 97.8 07/31/17 04:00 63 07/31/17 04:00 98.6 67 20 148/71 96 Room Air 98.6 07/31/17 00:00 70 07/31/17 00:00 97.2 73 20 155/76 98 Room Air 97.2 07/30/17 22:09 77 126/68 07/30/17 20:00 70 07/30/17 19:56 98.2 77 20 126/68 98 Room Air 98.2 07/30/17 16:00 79 07/30/17 16:00 97.4 63 20 119/67 98 Room Air 97.4 Intake and Output 07/30/17 07/31/17 19:00 07:00 Intake Total 360 ml Output Total 800 ml 0 ml Balance -440 ml 0 ml Intake Oral 360 ml Output Urine Total 800 ml 0 ml Laboratory Tests 07/31/17 09:20: White Blood Count 11.5H, Red Blood Count 2.88L, Hemoglobin 10.0L, Hematocrit 30.1L, Mean Corpuscular Volume 105H, Mean Corpuscular Hemoglobin 34.6H, Mean Corpuscular Hemoglobin Concent 33.1, Red Cell Distribution Width 18.0H, Platelet Count 333, Mean Platelet Volume 5.8L, Neutrophils (%) (Auto) 75.0, Lymphocytes (%) (Auto) 11.1L, Monocytes (%) (Auto) 11.7H, Eosinophils (%) (Auto ) 1.4, Basophils (%) (Auto) 0.7, Sodium Level 136, Potassium Level 3.4L, Chloride Level 104, Carbon Dioxide Level 25, Anion Gap 8, Blood Urea Nitrogen 10 , Creatinine 1.0, Estimat Glomerular Filtration Rate , Glucose Level 161H, Calcium Level 8.1L 07/31/17 12:50: Vancomycin Level Trough 5.4 Height (Feet): 5 Height (Inches): 8.00 Weight (Pounds): 150 General Appearance: WD/WN, no apparent distress, confused Morris Aguayo M.D. July 31, 2017 14:25
--- NOTE | 2017-07-31 14:30 | Infectious Diseases Prog Note ---
Assessment/Plan Problems: (1) Sepsis Assessment & Plan: blood culture remains negative so far , monitor off vancomycin and cefepime , monitor WBC (2) UTI (urinary tract infection) Assessment & Plan: urine culture is negative so far , monitor off cefepime (3) Onychomycosis Assessment & Plan: severe, continue lamasil for 3 months (4) Hip fracture, left Assessment & Plan: S/P ORIF , continue pain control , ortho is following (5) GENTRY (acute kidney injury) Assessment & Plan: due to the above, continue hydration and renally dosed antibiotics, pharmacy is following Subjective Constitutional: Reports: no symptoms HEENT: Reports: no symptoms Respiratory: Reports: no symptoms Breasts: Reports: no symptoms Cardiovascular: Reports: no symptoms Gastrointestinal/Abdominal: Reports: no symptoms Genitourinary: Reports: no symptoms Neurologic: Reports: no symptoms Psychiatric: Reports: no symptoms Skin: Reports: no symptoms Endocrine: Reports: no symptoms Hematologic: Reports: no symptoms Musculoskeletal: Reports: no symptoms Allergies: Coded Allergies: No Known Allergies (Unverified , 08/23/15) Subjective he was up in bed, had holt catheter placed for urinary retention , denied any fever or chills , had left hip ORIF Objective Vital Signs Last 24 Hour Vital Signs Date Time Temp Pulse Resp B/P (MAP) Pulse Ox O2 Delivery O2 Flow Rate FiO2 07/31/17 12:00 99.5 73 18 122/64 98 Room Air 99.5 07/31/17 08:33 65 145/63 07/31/17 08:00 64 07/31/17 08:00 97.8 58 18 145/63 96 Room Air 97.8 07/31/17 04:00 63 07/31/17 04:00 98.6 67 20 148/71 96 Room Air 98.6 07/31/17 00:00 70 07/31/17 00:00 97.2 73 20 155/76 98 Room Air 97.2 07/30/17 22:09 77 126/68 07/30/17 20:00 70 07/30/17 19:56 98.2 77 20 126/68 98 Room Air 98.2 07/30/17 16:00 79 07/30/17 16:00 97.4 63 20 119/67 98 Room Air 97.4 Height (Feet): 5 Height (Inches): 8.00 Weight (Pounds): 150 General Appearance: WD/WN, no acute distress HEENT: normocephalic, atraumatic, anicteric, mucous membranes moist, PERRL Respiratory/Chest: chest wall non-tender, lungs clear, normal breath sounds, no respiratory distress, no accessory muscle use Cardiovascular: normal peripheral pulses, normal rate, regular rhythm, no gallop/murmur, no JVD Abdomen: normal bowel sounds, soft, non tender, no organomegaly, non distended , no mass, no scars Genitourinary: normal external genitalia Extremities: no cyanosis, no clubbing Skin: no rash, no lesions, no ulcers, other - left leg surgical wounds clean Neurologic/Psychiatric: alert, responsive Laboratory Tests Test 07/31/17 09:20 07/31/17 12:50 White Blood Count 11.5 K/UL (4.8-10.8) H Red Blood Count 2.88 M/UL (4.70-6.10) L Hemoglobin 10.0 G/DL (14.2-18.0) L Hematocrit 30.1 % (42.0-52.0) L Mean Corpuscular Volume 105 FL (80-99) H Mean Corpuscular Hemoglobin 34.6 PG (27.0-31.0) H Mean Corpuscular Hemoglobin Concent 33.1 G/DL (32.0-36.0) Red Cell Distribution Width 18.0 % (11.6-14.8) H Platelet Count 333 K/UL (150-450) Mean Platelet Volume 5.8 FL (6.5-10.1) L Neutrophils (%) (Auto) 75.0 % (45.0-75.0) Lymphocytes (%) (Auto) 11.1 % (20.0-45.0) L Monocytes (%) (Auto) 11.7 % (1.0-10.0) H Eosinophils (%) (Auto) 1.4 % (0.0-3.0) Basophils (%) (Auto) 0.7 % (0.0-2.0) Sodium Level 136 MMOL/L (136-145) Potassium Level 3.4 MMOL/L (3.5-5.1) L Chloride Level 104 MMOL/L (98-107) Carbon Dioxide Level 25 MMOL/L (21-32) Anion Gap 8 mmol/L (5-15) Blood Urea Nitrogen 10 mg/dL (7-18) Creatinine 1.0 MG/DL (0.55-1.30) Estimat Glomerular Filtration Rate mL/min (>60) Glucose Level 161 MG/DL (74-106) H Calcium Level 8.1 MG/DL (8.5-10.1) L Vancomycin Level Trough 5.4 ug/mL (5.0-12.0) Current Medications Medications (Trade) Dose Ordered Sig/Leeroy Route PRN Reason Start Time Stop Time Status Last Admin Dose Admin Acetaminophen/ Hydrocodone Bitart ([place] 7.5/325) 1 tab Q4H PRN ORAL Moderate Pain (Pain Scale 4-6) 07/28/17 08:30 08/04/17 08:29 07/30/17 10:48 Dextrose (Dextrose 50%) 25 ml STAT PRN IV Hypoglycemia 07/25/17 20:45 08/24/17 20:44 Dextrose (Dextrose 50%) 50 ml STAT PRN IV Hypoglycemia 07/25/17 20:45 08/24/17 20:44 Diphenhydramine HCl (Benadryl) 25 mg Q6H PRN IVP Restlessness 07/25/17 21:45 08/24/17 21:44 Folic Acid (Folate) 1 mg DAILY ORAL 07/29/17 09:00 08/25/17 08:59 07/31/17 08:33 Heparin Sodium (Porcine) (Heparin 5000 units/ml) 5,000 units EVERY 8 HOURS SUBQ 07/28/17 22:00 08/24/17 21:59 07/31/17 14:11 Magnesium Hydroxide (Mom) 30 ml DAILYPRN PRN ORAL Constipation 07/28/17 08:30 08/27/17 08:29 Metoprolol Tartrate (Lopressor) 12.5 mg Q12HR ORAL 07/28/17 12:27 09/04/17 12:26 07/31/17 08:33 Ondansetron HCl (Zofran) 4 mg Q6HR PRN IVP Nausea & Vomiting 07/28/17 08:30 08/27/17 08:29 Oxycodone/ Acetaminophen (Percocet 5-325) 1 tab Q4H PRN ORAL Mild Pain (Pain Scale 1-3) 07/25/17 21:45 08/01/17 21:44 07/26/17 19:52 Quetiapine Fumarate (SEROquel) 25 mg Q6H PRN ORAL anxiety 07/30/17 11:45 08/29/17 11:44 07/30/17 12:42 Senna/Docusate Sodium ([place]-Colace) 1 tab TWICE A DAY ORAL 07/28/17 18:00 08/27/17 17:59 07/31/17 08:32 Temazepam (Restoril) 7.5 mg DAILY PRN ORAL Insomnia 07/28/17 08:30 08/04/17 08:29 07/29/17 21:13 Terbinafine HCl (LamISIL) 250 mg DAILY ORAL 07/29/17 09:00 08/05/17 08:59 07/31/17 08:32 Thiamine HCl (Vitamin B1) 100 mg DAILY ORAL 07/29/17 09:00 08/28/17 08:59 07/31/17 08:32 Kee Mcfarlane M.D. July 31, 2017 14:30
--- NOTE | 2017-07-31 14:46 | Cardiology Report ---
APPROVED REPORT EKG Measurement Heart [id number] MI [id number] Normal sinus rhythm Low voltage QRS Right bundle branch block Left anterior fascicular block Bifascicular block Abnormal ECG
--- NOTE | 2017-07-31 16:31 | Cardiac Electrophysiology PN ---
Assessment/Plan Assessment/Plan 1. Troponin elevation. Likely due to rhabdomyolysis and very high CPK Denies any chest pain. Denies any prior myocardial infarction or known coronary artery disease. EKG does not show any active ischemia even though he has bifascicular block. EF 55% Continue Lopressor 12.5 bid. Stress test showed only possible ischemia. Tolerated the surgery well with no cardiac issues. 2. Rhabdomyolysis. Renal failure is now resolved 3. Hyponatremia, improved. 4. History of heavy alcohol and tobacco use. 5. Anemia with Hb 10 down to 7.6. S/P 2 units PRBC 6. Left Hip Fx. S/P Left ORIF DW RN Subjective Subjective In SR. Pulled out his IV that was replaced. No chest pain or SOB.Had difficulty urinating and had White placement. Awaiting SNIF placement Objective Last 24 Hour Vital Signs Date Time Temp Pulse Resp B/P (MAP) Pulse Ox O2 Delivery O2 Flow Rate FiO2 07/31/17 12:00 99.5 73 18 122/64 98 Room Air 99.5 07/31/17 08:33 65 145/63 07/31/17 08:00 64 07/31/17 08:00 97.8 58 18 145/63 96 Room Air 97.8 07/31/17 04:00 63 07/31/17 04:00 98.6 67 20 148/71 96 Room Air 98.6 07/31/17 00:00 70 07/31/17 00:00 97.2 73 20 155/76 98 Room Air 97.2 07/30/17 22:09 77 126/68 07/30/17 20:00 70 07/30/17 19:56 98.2 77 20 126/68 98 Room Air 98.2 Intake and Output 07/30/17 07/31/17 19:00 07:00 Intake Total 360 ml Output Total 800 ml 0 ml Balance -440 ml 0 ml Intake Oral 360 ml Output Urine Total 800 ml 0 ml Laboratory Tests Test 07/31/17 09:20 07/31/17 12:50 White Blood Count 11.5 K/UL (4.8-10.8) H Red Blood Count 2.88 M/UL (4.70-6.10) L Hemoglobin 10.0 G/DL (14.2-18.0) L Hematocrit 30.1 % (42.0-52.0) L Mean Corpuscular Volume 105 FL (80-99) H Mean Corpuscular Hemoglobin 34.6 PG (27.0-31.0) H Mean Corpuscular Hemoglobin Concent 33.1 G/DL (32.0-36.0) Red Cell Distribution Width 18.0 % (11.6-14.8) H Platelet Count 333 K/UL (150-450) Mean Platelet Volume 5.8 FL (6.5-10.1) L Neutrophils (%) (Auto) 75.0 % (45.0-75.0) Lymphocytes (%) (Auto) 11.1 % (20.0-45.0) L Monocytes (%) (Auto) 11.7 % (1.0-10.0) H Eosinophils (%) (Auto) 1.4 % (0.0-3.0) Basophils (%) (Auto) 0.7 % (0.0-2.0) Sodium Level 136 MMOL/L (136-145) Potassium Level 3.4 MMOL/L (3.5-5.1) L Chloride Level 104 MMOL/L (98-107) Carbon Dioxide Level 25 MMOL/L (21-32) Anion Gap 8 mmol/L (5-15) Blood Urea Nitrogen 10 mg/dL (7-18) Creatinine 1.0 MG/DL (0.55-1.30) Estimat Glomerular Filtration Rate mL/min (>60) Glucose Level 161 MG/DL (74-106) H Calcium Level 8.1 MG/DL (8.5-10.1) L Vancomycin Level Trough 5.4 ug/mL (5.0-12.0) Objective HEAD AND NECK: No JVD. LUNGS: Clear. CARDIOVASCULAR: Regular S1 and S2 with no gallop or murmur. ABDOMEN: Soft. EXTREMITIES: No pitting edema. S/P L Hip surgery. Preet Spencer MD July 31, 2017 16:31
[2017-07-31] MEDS ORDERED: NS 275ml ONE (17:33)
[2017-07-31] MEDS ORDERED: Tubing IV Secondary IV ONE (17:33)
[2017-07-31] MEDS ORDERED: HYDROcodone/Acetamin 7.5/325 tab ORAL PRN (18:30)
[2017-07-31] MEDS ORDERED: DiphenhydrAMINE 50mg/ml Inj IVP PRN (18:30)
[2017-07-31] MEDS ORDERED: oxyCODONE HCL/Acetaminophen 5/325mg ORAL PRN (18:30)
[2017-08-01 00:03] VITALS: BP 145/74
[2017-08-01 03:48] VITALS: BP 137/70
[2017-08-01] MEDS: Heparin 5000 units/ml inj SUBQ SCH ×3 (05:39→20:56)
[2017-08-01] MEDS: oxyCODONE HCL/Acetaminophen 5/325mg ORAL PRN ×2 (05:47→09:52)
[2017-08-01 07:35] LABS: BASOPHILS % (AUTO) 0.6 % (0.0-2.0); EOSINOPHILS % (AUTO) 2.5 % (0.0-3.0); HEMATOCRIT 29.5 % (42.0-52.0); HEMOGLOBIN 9.7 G/DL (14.2-18.0); LYMPHOCYTES % (AUTO) 14.4 % (20.0-45.0); MEAN CORPUSCULAR VOLUME 104 FL (80-99); MONOCYTES % (AUTO) 13.5 % (1.0-10.0); NEUTROPHILS % (AUTO) 69.1 % (45.0-75.0); PLATELET COUNT 393 K/UL (150-450); RED BLOOD COUNT 2.83 M/UL (4.70-6.10); RED CELL DISTRIBUTION WIDTH 17.8 % (11.6-14.8); WHITE BLOOD COUNT 11.9 K/UL (4.8-10.8)
[2017-08-01 07:52] LABS: ANION GAP 10 mmol/L (5-15); BLOOD UREA NITROGEN 11 mg/dL (7-18); CALCIUM 7.9 MG/DL (8.5-10.1); CARBON DIOXIDE 25 MMOL/L (21-32); CHLORIDE 103 MMOL/L (98-107); CREATININE 1.1 MG/DL (0.55-1.30); SODIUM 138 MMOL/L (136-145)
[2017-08-01 08:06] VITALS: BP 114/98
--- NOTE | 2017-08-01 08:13 | Pulmonology Progress Note ---
Assessment/Plan Assessment/Plan IMPRESSION: 1. Loculated right pneumothorax. 2. Hip fracture. S/p ORIF 3. Severe bullous lung disease/emphysema DISCUSSION: respiratory care oxygen avoidance of excess sedation if possible impression, plan, and exam edited and reviewed in detail care discussed with RN Subjective Interval Events: None Constitutional: Reports: no symptoms HEENT: Repors: no symptoms Respiratory: Reports: no symptoms Cardiovascular: Reports: no symptoms Allergies: Coded Allergies: No Known Allergies (Unverified , 08/23/15) Objective Last 24 Hour Vital Signs Date Time Temp Pulse Resp B/P (MAP) Pulse Ox O2 Delivery O2 Flow Rate FiO2 08/01/17 08:06 98.1 84 16 114/98 Room Air 98.1 08/01/17 03:48 98.3 92 19 137/70 96 98.3 08/01/17 00:03 98.2 89 16 145/74 96 98.2 07/31/17 21:05 84 150/62 07/31/17 20:00 98.6 81 19 134/66 100 98.6 07/31/17 18:39 98.1 84 22 150/62 99 98.1 84 07/31/17 16:00 98.5 73 19 144/77 98 Room Air 98.5 07/31/17 16:00 75 07/31/17 12:00 99.5 73 18 122/64 98 Room Air 99.5 07/31/17 08:33 65 145/63 Intake and Output 07/31/17 08/01/17 19:00 07:00 Intake Total 470 ml 480 ml Output Total 98222 ml 1600 ml Balance -21662 ml -1120 ml Intake Oral 350 ml 480 ml Other 120 ml Output Urine Total 72589 ml 1600 ml Stool Total 0 ml # Voids 1 2 General Appearance: no acute distress HEENT: normocephalic Respiratory/Chest: chest wall non-tender, lungs clear Cardiovascular: normal peripheral pulses Laboratory Tests 07/31/17 09:20: White Blood Count 11.5H, Red Blood Count 2.88L, Hemoglobin 10.0L, Hematocrit 30.1L, Mean Corpuscular Volume 105H, Mean Corpuscular Hemoglobin 34.6H, Mean Corpuscular Hemoglobin Concent 33.1, Red Cell Distribution Width 18.0H, Platelet Count 333, Mean Platelet Volume 5.8L, Neutrophils (%) (Auto) 75.0, Lymphocytes (%) (Auto) 11.1L, Monocytes (%) (Auto) 11.7H, Eosinophils (%) (Auto ) 1.4, Basophils (%) (Auto) 0.7, Sodium Level 136, Potassium Level 3.4L, Chloride Level 104, Carbon Dioxide Level 25, Anion Gap 8, Blood Urea Nitrogen 10 , Creatinine 1.0, Estimat Glomerular Filtration Rate , Glucose Level 161H, Calcium Level 8.1L 07/31/17 12:50: Vancomycin Level Trough 5.4 08/01/17 06:15: White Blood Count 11.9H, Red Blood Count 2.83L, Hemoglobin 9.7L, Hematocrit 29.5L, Mean Corpuscular Volume 104H, Mean Corpuscular Hemoglobin 34.3H, Mean Corpuscular Hemoglobin Concent 32.9, Red Cell Distribution Width 17.8H, Platelet Count 393, Mean Platelet Volume 5.1L, Neutrophils (%) (Auto) 69.1, Lymphocytes (%) (Auto) 14.4L, Monocytes (%) (Auto) 13.5H, Eosinophils (%) (Auto ) 2.5, Basophils (%) (Auto) 0.6, Sodium Level 138, Potassium Level 3.0L, Chloride Level 103, Carbon Dioxide Level 25, Anion Gap 10, Blood Urea Nitrogen 11, Creatinine 1.1, Estimat Glomerular Filtration Rate , Glucose Level 117H, Calcium Level 7.9L Current Medications Medications (Trade) Dose Ordered Sig/Leeroy Route PRN Reason Start Time Stop Time Status Last Admin Dose Admin Acetaminophen/ Hydrocodone Bitart ([place] 7.5/325) 1 tab Q4H PRN ORAL Moderate Pain (Pain Scale 4-6) 07/31/17 18:30 08/04/17 18:29 Dextrose (Dextrose 50%) 25 ml STAT PRN IV Hypoglycemia 07/31/17 18:30 08/24/17 18:29 Dextrose (Dextrose 50%) 50 ml STAT PRN IV Hypoglycemia 07/31/17 18:30 08/24/17 18:29 Diphenhydramine HCl (Benadryl) 25 mg Q6H PRN IVP Restlessness 07/31/17 18:30 08/24/17 18:29 Folic Acid (Folate) 1 mg DAILY ORAL 08/01/17 09:00 08/25/17 08:59 Heparin Sodium (Porcine) (Heparin 5000 units/ml) 5,000 units EVERY 8 HOURS SUBQ 07/31/17 22:00 08/24/17 21:59 07/31/17 21:11 Magnesium Hydroxide (Mom) 30 ml DAILYPRN PRN ORAL Constipation 08/01/17 18:30 08/27/17 18:29 Metoprolol Tartrate (Lopressor) 12.5 mg Q12HR ORAL 07/31/17 21:00 09/04/17 12:26 07/31/17 21:05 Ondansetron HCl (Zofran) 4 mg Q6H PRN IVP Nausea & Vomiting 07/31/17 18:30 08/30/17 18:29 Oxycodone/ Acetaminophen (Percocet 5-325) 1 tab Q4H PRN ORAL Severe Pain (Pain Scale 7-10) 07/31/17 18:30 08/01/17 18:29 08/01/17 05:47 Quetiapine Fumarate (SEROquel) 25 mg Q6H PRN ORAL anxiety 07/31/17 18:30 08/30/17 18:29 08/01/17 05:48 Senna/Docusate Sodium ([place]-Colace) 1 tab TWICE A DAY ORAL 08/01/17 09:00 08/27/17 17:59 Temazepam (Restoril) 7.5 mg HSPRN PRN ORAL Insomnia 07/31/17 21:00 08/07/17 20:59 07/31/17 21:05 Terbinafine HCl (LamISIL) 250 mg DAILY ORAL 08/01/17 09:00 08/05/17 08:59 Thiamine HCl (Vitamin B1) 100 mg DAILY ORAL 08/01/17 09:00 08/28/17 08:59 Hay Crook MD August 01, 2017 08:13
--- NOTE | 2017-08-01 08:48 | Nephrology Progress Note ---
Assessment/Plan Assessment/Plan 1. Acute intertrochanteric fracture of left femur/Hip - patient s/p surgical correction. - DC to SNF 2. Leukocytosis- resolved. Appreciate ID assistance 3. DVT prophylaxsis- with heparing sub q q 8hrs 4. GENTRY- resolved 6. Rhabdomyolysis- resolved 7. Tiny right basilar pneumothorax. Extensive bullous emphysema - appreciate Pulmonary, stable 8. Hypokalemia- corrected 9. Urinary retention-bladder training Subjective Date patient seen: August 01, 2017 Time patient seen: 08:44 ROS Limited/Unobtainable: No Allergies: Coded Allergies: No Known Allergies (Unverified , 08/23/15) All Systems: reviewed and negative except above Subjective Patient had hip surgery and much improved. Is ambulatory with assistance and pending DC soon Objective Last 24 Hour Vital Signs Date Time Temp Pulse Resp B/P (MAP) Pulse Ox O2 Delivery O2 Flow Rate FiO2 08/01/17 08:06 98.1 84 16 114/98 Room Air 98.1 08/01/17 03:48 98.3 92 19 137/70 96 98.3 08/01/17 00:03 98.2 89 16 145/74 96 98.2 07/31/17 21:05 84 150/62 07/31/17 20:00 98.6 81 19 134/66 100 98.6 07/31/17 18:39 98.1 84 22 150/62 99 98.1 84 07/31/17 16:00 98.5 73 19 144/77 98 Room Air 98.5 07/31/17 16:00 75 07/31/17 12:00 99.5 73 18 122/64 98 Room Air 99.5 Intake and Output 07/31/17 08/01/17 19:00 07:00 Intake Total 470 ml 480 ml Output Total 55226 ml 1600 ml Balance -14087 ml -1120 ml Intake Oral 350 ml 480 ml Other 120 ml Output Urine Total 55150 ml 1600 ml Stool Total 0 ml # Voids 1 2 Laboratory Tests 07/31/17 09:20: White Blood Count 11.5H, Red Blood Count 2.88L, Hemoglobin 10.0L, Hematocrit 30.1L, Mean Corpuscular Volume 105H, Mean Corpuscular Hemoglobin 34.6H, Mean Corpuscular Hemoglobin Concent 33.1, Red Cell Distribution Width 18.0H, Platelet Count 333, Mean Platelet Volume 5.8L, Neutrophils (%) (Auto) 75.0, Lymphocytes (%) (Auto) 11.1L, Monocytes (%) (Auto) 11.7H, Eosinophils (%) (Auto ) 1.4, Basophils (%) (Auto) 0.7, Sodium Level 136, Potassium Level 3.4L, Chloride Level 104, Carbon Dioxide Level 25, Anion Gap 8, Blood Urea Nitrogen 10 , Creatinine 1.0, Estimat Glomerular Filtration Rate , Glucose Level 161H, Calcium Level 8.1L 07/31/17 12:50: Vancomycin Level Trough 5.4 08/01/17 06:15: White Blood Count 11.9H, Red Blood Count 2.83L, Hemoglobin 9.7L, Hematocrit 29.5L, Mean Corpuscular Volume 104H, Mean Corpuscular Hemoglobin 34.3H, Mean Corpuscular Hemoglobin Concent 32.9, Red Cell Distribution Width 17.8H, Platelet Count 393, Mean Platelet Volume 5.1L, Neutrophils (%) (Auto) 69.1, Lymphocytes (%) (Auto) 14.4L, Monocytes (%) (Auto) 13.5H, Eosinophils (%) (Auto ) 2.5, Basophils (%) (Auto) 0.6, Sodium Level 138, Potassium Level 3.0L, Chloride Level 103, Carbon Dioxide Level 25, Anion Gap 10, Blood Urea Nitrogen 11, Creatinine 1.1, Estimat Glomerular Filtration Rate , Glucose Level 117H, Calcium Level 7.9L Height (Feet): 5 Height (Inches): 8.00 Weight (Pounds): 144 General Appearance: WD/WN, no apparent distress EENT: PERRL/EOMI, normal ENT inspection Neck: normal alignment, supple Cardiovascular: normal peripheral pulses, normal rate, regular rhythm Respiratory/Chest: chest wall non-tender, lungs clear, normal breath sounds Abdomen: non tender, soft Edema: no edema noted Arm (L), no edema noted Arm (R), no edema noted Leg (L), no edema noted Leg (R), no edema noted Pedal (L), no edema noted Pedal (R), no edema noted Generalized Tien Nielsen M.D. August 01, 2017 08:48
[2017-08-01] MEDS: Metoprolol Tartrate 12.5mg TAB ORAL SCH ×2 (08:59→20:53)
[2017-08-01] MEDS: Docusate Sod/Senna tab ORAL SCH ×2 (09:00→17:11)
[2017-08-01] MEDS: Thiamine 100mg tab ORAL SCH (09:04)
[2017-08-01] MEDS ORDERED: Haloperidol 5mg/ml Inj IM PRN (11:00)
--- NOTE | 2017-08-01 11:02 | General Progress Note ---
Assessment/Plan Status: stable, progressing Assessment/Plan encephalopathy -Seroquel 25mg q 6hr prn -dc restraints when pt is not agitated Subjective Date patient seen: August 01, 2017 Neurologic/Psychiatric: Reports: anxiety, depressed, emotional problems Allergies: Coded Allergies: No Known Allergies (Unverified , 08/23/15) Subjective the pt was agitated last night and sitter was ordered the pt stated that the catheter was pushed too far and it was heading him. Objective Last 24 Hour Vital Signs Date Time Temp Pulse Resp B/P (MAP) Pulse Ox O2 Delivery O2 Flow Rate FiO2 08/01/17 08:59 84 114/98 08/01/17 08:06 98.1 84 16 114/98 Room Air 98.1 08/01/17 03:48 98.3 92 19 137/70 96 98.3 08/01/17 00:03 98.2 89 16 145/74 96 98.2 07/31/17 21:05 84 150/62 07/31/17 20:00 98.6 81 19 134/66 100 98.6 07/31/17 18:39 98.1 84 22 150/62 99 98.1 84 07/31/17 16:00 98.5 73 19 144/77 98 Room Air 98.5 07/31/17 16:00 75 07/31/17 12:00 99.5 73 18 122/64 98 Room Air 99.5 Intake and Output 07/31/17 08/01/17 19:00 07:00 Intake Total 470 ml 480 ml Output Total 73322 ml 1600 ml Balance -81127 ml -1120 ml Intake Oral 350 ml 480 ml Other 120 ml Output Urine Total 50592 ml 1600 ml Stool Total 0 ml # Voids 1 2 Laboratory Tests 07/31/17 12:50: Vancomycin Level Trough 5.4 08/01/17 06:15: White Blood Count 11.9H, Red Blood Count 2.83L, Hemoglobin 9.7L, Hematocrit 29.5L, Mean Corpuscular Volume 104H, Mean Corpuscular Hemoglobin 34.3H, Mean Corpuscular Hemoglobin Concent 32.9, Red Cell Distribution Width 17.8H, Platelet Count 393, Mean Platelet Volume 5.1L, Neutrophils (%) (Auto) 69.1, Lymphocytes (%) (Auto) 14.4L, Monocytes (%) (Auto) 13.5H, Eosinophils (%) (Auto ) 2.5, Basophils (%) (Auto) 0.6, Sodium Level 138, Potassium Level 3.0L, Chloride Level 103, Carbon Dioxide Level 25, Anion Gap 10, Blood Urea Nitrogen 11, Creatinine 1.1, Estimat Glomerular Filtration Rate , Glucose Level 117H, Calcium Level 7.9L Height (Feet): 5 Height (Inches): 8.00 Weight (Pounds): 144 General Appearance: WD/WN, no apparent distress, alert, confused - aaoxself and place Neurologic: disoriented, depressed affect Morris Aguayo M.D. August 01, 2017 11:02
--- NOTE | 2017-08-01 11:43 | GI Progress Note ---
Assessment/Plan Problems: (1) Abnormal LFTs ICD Codes: R94.5 - Abnormal results of liver function studies SNOMED: 361702123 (2) Anemia ICD Codes: D64.9 - Anemia, unspecified SNOMED: 641512270 (3) Alcohol intoxication ICD Codes: F10.129 - Alcohol abuse with intoxication, unspecified SNOMED: 33664928 (4) Fall ICD Codes: W19.XXXA - Unspecified fall, initial encounter SNOMED: 7737569, 153286807 Status: unchanged Status Narrative Discussed with Dr. Villegas. Assessment/Plan anemia >> stable H&H s/p Open reduction and internal fixation of left intertrochanteric hip fracture with intramedullary device. Hx of EGD/colonoscopy x 4 years hepatitis panel negative abdominal U/S reviewed >> 1. Fatty liver. 2. Status post cholecystectomy 3. 11 mm right renal cyst. OB stool r/o GI bleed uncollected monitor H&H, prn transfusions bowel regime ppi trend LFTs fu labs outpatient GI procedures The patient was seen and examined at bedside and all new and available data was reviewed in the patients chart. I agree with the above findings, impression and plan. (Patient seen earlier today. Signature stamp does not reflect patient encounter time.). - Garrison Vlilegas MD Subjective Gastrointestinal/Abdominal: Reports: no symptoms Objective Last 24 Hour Vital Signs Date Time Temp Pulse Resp B/P (MAP) Pulse Ox O2 Delivery O2 Flow Rate FiO2 08/01/17 08:59 84 114/98 08/01/17 08:06 98.1 84 16 114/98 Room Air 98.1 08/01/17 03:48 98.3 92 19 137/70 96 98.3 08/01/17 00:03 98.2 89 16 145/74 96 98.2 07/31/17 21:05 84 150/62 07/31/17 20:00 98.6 81 19 134/66 100 98.6 07/31/17 18:39 98.1 84 22 150/62 99 98.1 84 07/31/17 16:00 98.5 73 19 144/77 98 Room Air 98.5 07/31/17 16:00 75 07/31/17 12:00 99.5 73 18 122/64 98 Room Air 99.5 Intake and Output 07/31/17 08/01/17 19:00 07:00 Intake Total 470 ml 480 ml Output Total 24625 ml 1600 ml Balance -99124 ml -1120 ml Intake Oral 350 ml 480 ml Other 120 ml Output Urine Total 57249 ml 1600 ml Stool Total 0 ml # Voids 1 2 Laboratory Tests Test 07/31/17 12:50 08/01/17 06:15 Vancomycin Level Trough 5.4 ug/mL (5.0-12.0) White Blood Count 11.9 K/UL (4.8-10.8) H Red Blood Count 2.83 M/UL (4.70-6.10) L Hemoglobin 9.7 G/DL (14.2-18.0) L Hematocrit 29.5 % (42.0-52.0) L Mean Corpuscular Volume 104 FL (80-99) H Mean Corpuscular Hemoglobin 34.3 PG (27.0-31.0) H Mean Corpuscular Hemoglobin Concent 32.9 G/DL (32.0-36.0) Red Cell Distribution Width 17.8 % (11.6-14.8) H Platelet Count 393 K/UL (150-450) Mean Platelet Volume 5.1 FL (6.5-10.1) L Neutrophils (%) (Auto) 69.1 % (45.0-75.0) Lymphocytes (%) (Auto) 14.4 % (20.0-45.0) L Monocytes (%) (Auto) 13.5 % (1.0-10.0) H Eosinophils (%) (Auto) 2.5 % (0.0-3.0) Basophils (%) (Auto) 0.6 % (0.0-2.0) Sodium Level 138 MMOL/L (136-145) Potassium Level 3.0 MMOL/L (3.5-5.1) L Chloride Level 103 MMOL/L (98-107) Carbon Dioxide Level 25 MMOL/L (21-32) Anion Gap 10 mmol/L (5-15) Blood Urea Nitrogen 11 mg/dL (7-18) Creatinine 1.1 MG/DL (0.55-1.30) Estimat Glomerular Filtration Rate mL/min (>60) Glucose Level 117 MG/DL (74-106) H Calcium Level 7.9 MG/DL (8.5-10.1) L Height (Feet): 5 Height (Inches): 8.00 Weight (Pounds): 144 General Appearance: WD/WN, no apparent distress, alert Cardiovascular: normal rate Respiratory/Chest: normal breath sounds, no respiratory distress Abdominal Exam: normal bowel sounds, non tender, soft Extremities: normal range of motion, non-tender Jay Ochoa NP August 01, 2017 11:43
[2017-08-01 12:00] VITALS: BP 102/61
--- NOTE | 2017-08-01 14:20 | Infectious Diseases Prog Note ---
Assessment/Plan Problems: (1) Sepsis Assessment & Plan: blood culture remains negative so far , monitor off vancomycin and cefepime , monitor WBC (2) UTI (urinary tract infection) Assessment & Plan: urine culture is negative so far , monitor off cefepime (3) Onychomycosis Assessment & Plan: severe, continue lamasil for 3 months (4) Hip fracture, left Assessment & Plan: S/P ORIF , continue pain control , ortho is following (5) GENTRY (acute kidney injury) Assessment & Plan: due to the above, continue hydration , monitor renal function Subjective Constitutional: Reports: no symptoms HEENT: Reports: no symptoms Respiratory: Reports: no symptoms Breasts: Reports: no symptoms Cardiovascular: Reports: no symptoms Gastrointestinal/Abdominal: Reports: no symptoms Genitourinary: Reports: no symptoms Neurologic: Reports: no symptoms Psychiatric: Reports: no symptoms Skin: Reports: no symptoms Endocrine: Reports: no symptoms Hematologic: Reports: no symptoms Musculoskeletal: Reports: pain Allergies: Coded Allergies: No Known Allergies (Unverified , 08/23/15) Subjective he was up in bed, denied any fever or chills , had left hip ORIF Objective Vital Signs Last 24 Hour Vital Signs Date Time Temp Pulse Resp B/P (MAP) Pulse Ox O2 Delivery O2 Flow Rate FiO2 08/01/17 12:00 97.0 71 16 102/61 99 Room Air 97.0 08/01/17 08:59 84 114/98 08/01/17 08:06 98.1 84 16 114/98 Room Air 98.1 08/01/17 03:48 98.3 92 19 137/70 96 98.3 08/01/17 00:03 98.2 89 16 145/74 96 98.2 07/31/17 21:05 84 150/62 07/31/17 20:00 98.6 81 19 134/66 100 98.6 07/31/17 18:39 98.1 84 22 150/62 99 98.1 84 07/31/17 16:00 98.5 73 19 144/77 98 Room Air 98.5 07/31/17 16:00 75 Height (Feet): 5 Height (Inches): 8.00 Weight (Pounds): 150 General Appearance: WD/WN, no acute distress HEENT: normocephalic, atraumatic, anicteric, mucous membranes moist, PERRL Respiratory/Chest: chest wall non-tender, lungs clear, normal breath sounds, no respiratory distress, no accessory muscle use Cardiovascular: normal peripheral pulses, normal rate, regular rhythm, no gallop/murmur, no JVD Abdomen: normal bowel sounds, soft, non tender, no organomegaly, non distended , no mass, no scars Extremities: no cyanosis, no clubbing Skin: no rash, no lesions, no ulcers Neurologic/Psychiatric: alert, oriented x 3 Lymphatic: no neck adenopathy, no groin adenopathy Laboratory Tests Test 08/01/17 06:15 White Blood Count 11.9 K/UL (4.8-10.8) H Red Blood Count 2.83 M/UL (4.70-6.10) L Hemoglobin 9.7 G/DL (14.2-18.0) L Hematocrit 29.5 % (42.0-52.0) L Mean Corpuscular Volume 104 FL (80-99) H Mean Corpuscular Hemoglobin 34.3 PG (27.0-31.0) H Mean Corpuscular Hemoglobin Concent 32.9 G/DL (32.0-36.0) Red Cell Distribution Width 17.8 % (11.6-14.8) H Platelet Count 393 K/UL (150-450) Mean Platelet Volume 5.1 FL (6.5-10.1) L Neutrophils (%) (Auto) 69.1 % (45.0-75.0) Lymphocytes (%) (Auto) 14.4 % (20.0-45.0) L Monocytes (%) (Auto) 13.5 % (1.0-10.0) H Eosinophils (%) (Auto) 2.5 % (0.0-3.0) Basophils (%) (Auto) 0.6 % (0.0-2.0) Sodium Level 138 MMOL/L (136-145) Potassium Level 3.0 MMOL/L (3.5-5.1) L Chloride Level 103 MMOL/L (98-107) Carbon Dioxide Level 25 MMOL/L (21-32) Anion Gap 10 mmol/L (5-15) Blood Urea Nitrogen 11 mg/dL (7-18) Creatinine 1.1 MG/DL (0.55-1.30) Estimat Glomerular Filtration Rate mL/min (>60) Glucose Level 117 MG/DL (74-106) H Calcium Level 7.9 MG/DL (8.5-10.1) L Current Medications Medications (Trade) Dose Ordered Sig/Leeroy Route PRN Reason Start Time Stop Time Status Last Admin Dose Admin Acetaminophen/ Hydrocodone Bitart ([place] 7.5/325) 1 tab Q4H PRN ORAL Moderate Pain (Pain Scale 4-6) 07/31/17 18:30 08/04/17 18:29 Dextrose (Dextrose 50%) 25 ml STAT PRN IV Hypoglycemia 07/31/17 18:30 08/24/17 18:29 Dextrose (Dextrose 50%) 50 ml STAT PRN IV Hypoglycemia 07/31/17 18:30 08/24/17 18:29 Diphenhydramine HCl (Benadryl) 25 mg Q6H PRN IVP Restlessness 07/31/17 18:30 08/24/17 18:29 Folic Acid (Folate) 1 mg DAILY ORAL 08/01/17 09:00 08/25/17 08:59 08/01/17 09:04 Haloperidol Lactate (Haldol) 5 mg Q6H PRN IM Agitation 08/01/17 11:00 08/31/17 10:59 Heparin Sodium (Porcine) (Heparin 5000 units/ml) 5,000 units EVERY 8 HOURS SUBQ 07/31/17 22:00 08/24/17 21:59 08/01/17 14:08 Magnesium Hydroxide (Mom) 30 ml DAILYPRN PRN ORAL Constipation 08/01/17 18:30 08/27/17 18:29 Metoprolol Tartrate (Lopressor) 12.5 mg Q12HR ORAL 07/31/17 21:00 09/04/17 12:26 07/31/17 21:05 Ondansetron HCl (Zofran) 4 mg Q6H PRN IVP Nausea & Vomiting 07/31/17 18:30 08/30/17 18:29 Oxycodone/ Acetaminophen (Percocet 5-325) 1 tab Q4H PRN ORAL Severe Pain (Pain Scale 7-10) 07/31/17 18:30 08/01/17 18:29 08/01/17 09:52 Quetiapine Fumarate (SEROquel) 25 mg Q6H PRN ORAL anxiety 07/31/17 18:30 08/30/17 18:29 08/01/17 05:48 Senna/Docusate Sodium ([place]-Colace) 1 tab TWICE A DAY ORAL 08/01/17 09:00 08/27/17 17:59 Temazepam (Restoril) 7.5 mg HSPRN PRN ORAL Insomnia 07/31/17 21:00 08/07/17 20:59 07/31/17 21:05 Terbinafine HCl (LamISIL) 250 mg DAILY ORAL 08/01/17 09:00 08/05/17 08:59 08/01/17 09:05 Thiamine HCl (Vitamin B1) 100 mg DAILY ORAL 08/01/17 09:00 08/28/17 08:59 08/01/17 09:04 Kee Mcfarlane M.D. August 01, 2017 14:20
[2017-08-01 16:00] VITALS: BP 132/68
--- NOTE | 2017-08-01 16:32 | Cardiac Electrophysiology PN ---
Assessment/Plan Assessment/Plan 1. Troponin elevation. Likely due to rhabdomyolysis and very high CPK Denies any chest pain. Denies any prior myocardial infarction or known coronary artery disease. EKG does not show any active ischemia even though he has bifascicular block. EF 55% Continue Lopressor 12.5 bid. Stress test showed only possible ischemia. Tolerated the surgery well with no cardiac issues. 2. Rhabdomyolysis and renal failure. Both resolved 3. Hyponatremia, improved. 4. History of heavy alcohol and tobacco use. 5. Anemia with Hb 10 down to 7.6. S/P 2 units PRBC 6. Left Hip Fx. S/P Left ORIF DW RN Subjective Subjective No chest pain or SOB. Off tele now Objective Last 24 Hour Vital Signs Date Time Temp Pulse Resp B/P (MAP) Pulse Ox O2 Delivery O2 Flow Rate FiO2 08/01/17 16:00 98.0 80 20 132/68 99 98.0 08/01/17 12:00 97.0 71 16 102/61 99 Room Air 97.0 08/01/17 08:59 84 114/98 08/01/17 08:06 98.1 84 16 114/98 Room Air 98.1 08/01/17 03:48 98.3 92 19 137/70 96 98.3 08/01/17 00:03 98.2 89 16 145/74 96 98.2 07/31/17 21:05 84 150/62 07/31/17 20:00 98.6 81 19 134/66 100 98.6 07/31/17 18:39 98.1 84 22 150/62 99 98.1 84 Intake and Output 07/31/17 08/01/17 19:00 07:00 Intake Total 470 ml 480 ml Output Total 88658 ml 1600 ml Balance -25453 ml -1120 ml Intake Oral 350 ml 480 ml Other 120 ml Output Urine Total 49869 ml 1600 ml Stool Total 0 ml # Voids 1 2 Laboratory Tests Test 08/01/17 06:15 White Blood Count 11.9 K/UL (4.8-10.8) H Red Blood Count 2.83 M/UL (4.70-6.10) L Hemoglobin 9.7 G/DL (14.2-18.0) L Hematocrit 29.5 % (42.0-52.0) L Mean Corpuscular Volume 104 FL (80-99) H Mean Corpuscular Hemoglobin 34.3 PG (27.0-31.0) H Mean Corpuscular Hemoglobin Concent 32.9 G/DL (32.0-36.0) Red Cell Distribution Width 17.8 % (11.6-14.8) H Platelet Count 393 K/UL (150-450) Mean Platelet Volume 5.1 FL (6.5-10.1) L Neutrophils (%) (Auto) 69.1 % (45.0-75.0) Lymphocytes (%) (Auto) 14.4 % (20.0-45.0) L Monocytes (%) (Auto) 13.5 % (1.0-10.0) H Eosinophils (%) (Auto) 2.5 % (0.0-3.0) Basophils (%) (Auto) 0.6 % (0.0-2.0) Sodium Level 138 MMOL/L (136-145) Potassium Level 3.0 MMOL/L (3.5-5.1) L Chloride Level 103 MMOL/L (98-107) Carbon Dioxide Level 25 MMOL/L (21-32) Anion Gap 10 mmol/L (5-15) Blood Urea Nitrogen 11 mg/dL (7-18) Creatinine 1.1 MG/DL (0.55-1.30) Estimat Glomerular Filtration Rate mL/min (>60) Glucose Level 117 MG/DL (74-106) H Calcium Level 7.9 MG/DL (8.5-10.1) L Objective HEAD AND NECK: No JVD. LUNGS: Clear. CARDIOVASCULAR: Regular S1 and S2 with no gallop or murmur. ABDOMEN: Soft. EXTREMITIES: No pitting edema. S/P L Hip surgery. Preet Spencer MD August 01, 2017 16:32
[2017-08-01] MEDS ORDERED: Milk of Magnesia 30ml Ud ORAL PRN (18:30)
[2017-08-01 20:00] VITALS: BP 133/74
[2017-08-01] MEDS: Tamsulosin 0.4mg cap ORAL SCH (20:53)
[2017-08-02] VITALS: BP 125/72
[2017-08-02 04:00] VITALS: BP 124/72
[2017-08-02] MEDS: Heparin 5000 units/ml inj SUBQ SCH ×3 (07:10→22:12)
[2017-08-02 07:43] LABS: BASOPHILS % (AUTO) 0.7 % (0.0-2.0); EOSINOPHILS % (AUTO) 2.4 % (0.0-3.0); HEMATOCRIT 31.3 % (42.0-52.0); HEMOGLOBIN 10.3 G/DL (14.2-18.0); LYMPHOCYTES % (AUTO) 17.8 % (20.0-45.0); MEAN CORPUSCULAR VOLUME 105 FL (80-99); MONOCYTES % (AUTO) 12.7 % (1.0-10.0); NEUTROPHILS % (AUTO) 66.5 % (45.0-75.0); PLATELET COUNT 451 K/UL (150-450); RED BLOOD COUNT 2.99 M/UL (4.70-6.10); RED CELL DISTRIBUTION WIDTH 17.8 % (11.6-14.8); WHITE BLOOD COUNT 10.4 K/UL (4.8-10.8)
[2017-08-02 08:00] VITALS: BP 130/64
[2017-08-02 08:30] LABS: ALANINE AMINOTRANSFERASE 26 U/L (12-78); ALBUMIN 2.3 G/DL (3.4-5.0); ALBUMIN/GLOBULIN RATIO 0.5 (1.0-2.7); ALKALINE PHOSPHATASE 94 U/L (46-116); ANION GAP 8 mmol/L (5-15); ASPARTATE AMINO TRANSFERASE 26 U/L (15-37); BILIRUBIN,TOTAL 1.2 MG/DL (0.2-1.0); BLOOD UREA NITROGEN 11 mg/dL (7-18); CALCIUM 8.2 MG/DL (8.5-10.1); CARBON DIOXIDE 26 MMOL/L (21-32); CHLORIDE 103 MMOL/L (98-107); CREATININE 0.9 MG/DL (0.55-1.30); POTASSIUM 3.8 MMOL/L (3.5-5.1); SODIUM 137 MMOL/L (136-145)
[2017-08-02 08:35] LABS: BILIRUBIN,DIRECT 0.4 MG/DL (0.0-0.3)
--- NOTE | 2017-08-02 08:42 | Nephrology Progress Note ---
Assessment/Plan Assessment/Plan 1. Acute intertrochanteric fracture of left femur/Hip - patient s/p surgical correction - DC to SNF 2. Leukocytosis- resolved. Appreciate ID assistance 3. DVT prophylaxsis- with heparing sub q q 8hrs 4. GENTRY- resolved, Rhabdomyolysis- resolved 5. Tiny right basilar pneumothorax. Extensive bullous emphysema - appreciate Pulmonary, stable 6. Hypokalemia- corrected 7. Urinary retention-bladder training, flomax. No avail - [facility] Subjective Date patient seen: August 02, 2017 Time patient seen: 08:40 ROS Limited/Unobtainable: No Constitutional: Reports: weakness Allergies: Coded Allergies: No Known Allergies (Unverified , 08/23/15) All Systems: reviewed and negative except above Subjective Patient had hip surgery and much improved. Pending DC to SNF Objective Last 24 Hour Vital Signs Date Time Temp Pulse Resp B/P (MAP) Pulse Ox O2 Delivery O2 Flow Rate FiO2 08/02/17 04:00 97.0 74 18 124/72 99 97.0 08/02/17 00:00 98.5 74 18 125/72 97 98.5 08/01/17 20:53 89 133/74 08/01/17 20:00 98.7 89 18 133/74 95 98.7 08/01/17 16:00 98.0 80 20 132/68 99 98.0 08/01/17 12:00 97.0 71 16 102/61 99 Room Air 97.0 08/01/17 08:59 84 114/98 Intake and Output 08/01/17 08/02/17 19:00 07:00 Intake Total 400 ml 250 ml Output Total 900 ml 850 ml Balance -500 ml -600 ml Intake Oral 400 ml 250 ml Output Urine Total 900 ml 850 ml # Voids 1 # Bowel Movements 1 1 Laboratory Tests 08/01/17 22:00: Stool Occult Blood [Pending] 08/02/17 06:05: White Blood Count 10.4, Red Blood Count 2.99L, Hemoglobin 10.3L, Hematocrit 31.3L, Mean Corpuscular Volume 105H, Mean Corpuscular Hemoglobin 34.4H, Mean Corpuscular Hemoglobin Concent 32.8, Red Cell Distribution Width 17.8H, Platelet Count 451H, Mean Platelet Volume 4.9L, Neutrophils (%) (Auto) 66.5, Lymphocytes (%) (Auto) 17.8L, Monocytes (%) (Auto) 12.7H, Eosinophils (%) (Auto ) 2.4, Basophils (%) (Auto) 0.7, Sodium Level 137, Potassium Level 3.8, Chloride Level 103, Carbon Dioxide Level 26, Anion Gap 8, Blood Urea Nitrogen 11 , Creatinine 0.9, Estimat Glomerular Filtration Rate , Glucose Level 107H, Calcium Level 8.2L, Total Bilirubin 1.2H, Direct Bilirubin 0.4H, Aspartate Amino Transf (AST/SGOT) 26, Alanine Aminotransferase (ALT/SGPT) 26, Alkaline Phosphatase 94, Total Protein 6.7, Albumin 2.3L, Globulin 4.4, Albumin/Globulin Ratio 0.5L Height (Feet): 5 Height (Inches): 8.00 Weight (Pounds): 146 General Appearance: WD/WN, no apparent distress EENT: normal ENT inspection, TMs normal Neck: normal alignment, supple Cardiovascular: normal rate, regular rhythm Respiratory/Chest: lungs clear, normal breath sounds Abdomen: non tender, soft Edema: no edema noted Arm (L), no edema noted Arm (R), no edema noted Leg (L), no edema noted Leg (R), no edema noted Pedal (L), no edema noted Pedal (R), no edema noted Generalized Tien Nielsen M.D. August 02, 2017 08:42
[2017-08-02] MEDS: Docusate Sod/Senna tab ORAL SCH ×2 (08:44→16:23)
[2017-08-02] MEDS: Thiamine 100mg tab ORAL SCH (09:00)
[2017-08-02] MEDS: Metoprolol Tartrate 12.5mg TAB ORAL SCH ×2 (09:01→20:47)
--- NOTE | 2017-08-02 09:19 | Pulmonology Progress Note ---
Assessment/Plan Assessment/Plan IMPRESSION: 1. Loculated right pneumothorax. 2. Hip fracture. S/p ORIF 3. Severe bullous lung disease/emphysema DISCUSSION: Continue respiratory care Oxygen as needed Will see as needed Subjective Interval Events: No reported problems Constitutional: Reports: no symptoms HEENT: Repors: no symptoms Respiratory: Reports: no symptoms Cardiovascular: Reports: no symptoms Gastrointestinal/Abdominal: Reports: no symptoms Genitourinary: Reports: no symptoms Allergies: Coded Allergies: No Known Allergies (Unverified , 08/23/15) Objective Last 24 Hour Vital Signs Date Time Temp Pulse Resp B/P (MAP) Pulse Ox O2 Delivery O2 Flow Rate FiO2 08/02/17 09:01 72 130/64 08/02/17 04:00 97.0 74 18 124/72 99 97.0 08/02/17 00:00 98.5 74 18 125/72 97 98.5 08/01/17 20:53 89 133/74 08/01/17 20:00 98.7 89 18 133/74 95 98.7 08/01/17 16:00 98.0 80 20 132/68 99 98.0 08/01/17 12:00 97.0 71 16 102/61 99 Room Air 97.0 Intake and Output 08/01/17 08/02/17 19:00 07:00 Intake Total 400 ml 250 ml Output Total 900 ml 850 ml Balance -500 ml -600 ml Intake Oral 400 ml 250 ml Output Urine Total 900 ml 850 ml # Voids 1 # Bowel Movements 1 1 General Appearance: no acute distress HEENT: normocephalic Respiratory/Chest: chest wall non-tender, lungs clear Cardiovascular: normal peripheral pulses, normal rate Laboratory Tests 08/01/17 22:00: Stool Occult Blood [Pending] 08/02/17 06:05: White Blood Count 10.4, Red Blood Count 2.99L, Hemoglobin 10.3L, Hematocrit 31.3L, Mean Corpuscular Volume 105H, Mean Corpuscular Hemoglobin 34.4H, Mean Corpuscular Hemoglobin Concent 32.8, Red Cell Distribution Width 17.8H, Platelet Count 451H, Mean Platelet Volume 4.9L, Neutrophils (%) (Auto) 66.5, Lymphocytes (%) (Auto) 17.8L, Monocytes (%) (Auto) 12.7H, Eosinophils (%) (Auto ) 2.4, Basophils (%) (Auto) 0.7, Sodium Level 137, Potassium Level 3.8, Chloride Level 103, Carbon Dioxide Level 26, Anion Gap 8, Blood Urea Nitrogen 11 , Creatinine 0.9, Estimat Glomerular Filtration Rate , Glucose Level 107H, Calcium Level 8.2L, Total Bilirubin 1.2H, Direct Bilirubin 0.4H, Aspartate Amino Transf (AST/SGOT) 26, Alanine Aminotransferase (ALT/SGPT) 26, Alkaline Phosphatase 94, Total Protein 6.7, Albumin 2.3L, Globulin 4.4, Albumin/Globulin Ratio 0.5L Current Medications Medications (Trade) Dose Ordered Sig/Leeroy Route PRN Reason Start Time Stop Time Status Last Admin Dose Admin Acetaminophen/ Hydrocodone Bitart ([place] 7.5/325) 1 tab Q4H PRN ORAL Moderate Pain (Pain Scale 4-6) 07/31/17 18:30 08/04/17 18:29 Dextrose (Dextrose 50%) 25 ml STAT PRN IV Hypoglycemia 07/31/17 18:30 08/24/17 18:29 Dextrose (Dextrose 50%) 50 ml STAT PRN IV Hypoglycemia 07/31/17 18:30 08/24/17 18:29 Diphenhydramine HCl (Benadryl) 25 mg Q6H PRN IVP Restlessness 07/31/17 18:30 08/24/17 18:29 Folic Acid (Folate) 1 mg DAILY ORAL 08/01/17 09:00 08/25/17 08:59 08/02/17 08:44 Haloperidol Lactate (Haldol) 5 mg Q6H PRN IM Agitation 08/01/17 11:00 08/31/17 10:59 Heparin Sodium (Porcine) (Heparin 5000 units/ml) 5,000 units EVERY 8 HOURS SUBQ 07/31/17 22:00 08/24/17 21:59 08/02/17 07:10 Magnesium Hydroxide (Mom) 30 ml DAILYPRN PRN ORAL Constipation 08/01/17 18:30 08/27/17 18:29 Metoprolol Tartrate (Lopressor) 12.5 mg Q12HR ORAL 07/31/17 21:00 09/04/17 12:26 08/02/17 09:01 Ondansetron HCl (Zofran) 4 mg Q6H PRN IVP Nausea & Vomiting 07/31/17 18:30 08/30/17 18:29 Quetiapine Fumarate (SEROquel) 25 mg Q6H PRN ORAL anxiety 07/31/17 18:30 08/30/17 18:29 08/01/17 05:48 Senna/Docusate Sodium (Lindsay-Colace) 1 tab TWICE A DAY ORAL 08/01/17 09:00 08/27/17 17:59 08/02/17 08:44 Tamsulosin HCl (Flomax) 0.4 mg BEDTIME ORAL 08/01/17 21:00 08/31/17 20:59 08/01/17 20:53 Temazepam (Restoril) 7.5 mg HSPRN PRN ORAL Insomnia 07/31/17 21:00 08/07/17 20:59 07/31/17 21:05 Terbinafine HCl (LamISIL) 250 mg DAILY ORAL 08/01/17 09:00 08/05/17 08:59 08/02/17 08:44 Thiamine HCl (Vitamin B1) 100 mg DAILY ORAL 08/01/17 09:00 08/28/17 08:59 08/02/17 09:00 Hay Crook MD August 02, 2017 09:19
--- NOTE | 2017-08-02 11:42 | GI Progress Note ---
Assessment/Plan Problems: (1) Abnormal LFTs ICD Codes: R94.5 - Abnormal results of liver function studies SNOMED: 406094495 (2) Anemia ICD Codes: D64.9 - Anemia, unspecified SNOMED: 073837185 (3) Alcohol intoxication ICD Codes: F10.129 - Alcohol abuse with intoxication, unspecified SNOMED: 76344846 (4) Fall ICD Codes: W19.XXXA - Unspecified fall, initial encounter SNOMED: 8334162, 190174129 Status: stable Status Narrative Discussed with Dr. Villegas. Assessment/Plan anemia >> stable H&H s/p Open reduction and internal fixation of left intertrochanteric hip fracture with intramedullary device. Hx of EGD/colonoscopy x 4 years hepatitis panel negative abdominal U/S reviewed >> 1. Fatty liver. 2. Status post cholecystectomy 3. 11 mm right renal cyst. OB stool negative okay for DC per GI standpoint monitor H&H, prn transfusions bowel regime ppi trend LFTs fu labs outpatient GI procedures The patient was seen and examined at bedside and all new and available data was reviewed in the patients chart. I agree with the above findings, impression and plan. (Patient seen earlier today. Signature stamp does not reflect patient encounter time.). - Garrison Villegas MD Subjective Gastrointestinal/Abdominal: Reports: no symptoms Objective Last 24 Hour Vital Signs Date Time Temp Pulse Resp B/P (MAP) Pulse Ox O2 Delivery O2 Flow Rate FiO2 08/02/17 09:01 72 130/64 08/02/17 08:00 98.3 72 18 130/64 97 Room Air 98.3 08/02/17 04:00 97.0 74 18 124/72 99 97.0 08/02/17 00:00 98.5 74 18 125/72 97 98.5 08/01/17 20:53 89 133/74 08/01/17 20:00 98.7 89 18 133/74 95 98.7 08/01/17 16:00 98.0 80 20 132/68 99 98.0 08/01/17 12:00 97.0 71 16 102/61 99 Room Air 97.0 Intake and Output 08/01/17 08/02/17 19:00 07:00 Intake Total 400 ml 250 ml Output Total 900 ml 850 ml Balance -500 ml -600 ml Intake Oral 400 ml 250 ml Output Urine Total 900 ml 850 ml # Voids 1 # Bowel Movements 1 1 Laboratory Tests Test 08/01/17 22:00 08/02/17 06:05 Stool Occult Blood Negative (NEGATIVE) White Blood Count 10.4 K/UL (4.8-10.8) Red Blood Count 2.99 M/UL (4.70-6.10) L Hemoglobin 10.3 G/DL (14.2-18.0) L Hematocrit 31.3 % (42.0-52.0) L Mean Corpuscular Volume 105 FL (80-99) H Mean Corpuscular Hemoglobin 34.4 PG (27.0-31.0) H Mean Corpuscular Hemoglobin Concent 32.8 G/DL (32.0-36.0) Red Cell Distribution Width 17.8 % (11.6-14.8) H Platelet Count 451 K/UL (150-450) H Mean Platelet Volume 4.9 FL (6.5-10.1) L Neutrophils (%) (Auto) 66.5 % (45.0-75.0) Lymphocytes (%) (Auto) 17.8 % (20.0-45.0) L Monocytes (%) (Auto) 12.7 % (1.0-10.0) H Eosinophils (%) (Auto) 2.4 % (0.0-3.0) Basophils (%) (Auto) 0.7 % (0.0-2.0) Sodium Level 137 MMOL/L (136-145) Potassium Level 3.8 MMOL/L (3.5-5.1) Chloride Level 103 MMOL/L (98-107) Carbon Dioxide Level 26 MMOL/L (21-32) Anion Gap 8 mmol/L (5-15) Blood Urea Nitrogen 11 mg/dL (7-18) Creatinine 0.9 MG/DL (0.55-1.30) Estimat Glomerular Filtration Rate mL/min (>60) Glucose Level 107 MG/DL (74-106) H Calcium Level 8.2 MG/DL (8.5-10.1) L Total Bilirubin 1.2 MG/DL (0.2-1.0) H Direct Bilirubin 0.4 MG/DL (0.0-0.3) H Aspartate Amino Transf (AST/SGOT) 26 U/L (15-37) Alanine Aminotransferase (ALT/SGPT) 26 U/L (12-78) Alkaline Phosphatase 94 U/L (46-116) Total Protein 6.7 G/DL (6.4-8.2) Albumin 2.3 G/DL (3.4-5.0) L Globulin 4.4 g/dL Albumin/Globulin Ratio 0.5 (1.0-2.7) L Height (Feet): 5 Height (Inches): 8.00 Weight (Pounds): 146 General Appearance: WD/WN, no apparent distress, alert Cardiovascular: normal rate Respiratory/Chest: normal breath sounds, no respiratory distress Abdominal Exam: normal bowel sounds, non tender, soft Extremities: normal range of motion, non-tender Jay Ochoa NP August 02, 2017 11:42
[2017-08-02 12:00] VITALS: BP 131/65
--- NOTE | 2017-08-02 13:27 | Consultation ---
History of Present Illness General Date patient seen: August 02, 2017 Time patient seen: 13:25 Chief Complaint: Multiple Trauma/Fall Referring physician: CHRISTEL VIDES Reason for Consultation: ANEMIA Present Illness HPI 77 yo male had ORIF yesterday. Had urinary retention. Had holt placed 0300. Patient denies pre-op/pre-hospitalization urinary issues. Allergies: Coded Allergies: No Known Allergies (Unverified , 08/23/15) Medication History Scheduled No Known Medications* (NKM - No Known Medications*), 0 ., (Reported) Patient History History Provided By: Patient Healthcare decision maker Resuscitation status Full Code Advanced Directive on File Past Medical/Surgical History Past Medical/Surgical History: (1) Hip fracture, left (2) Encephalopathy Review of Systems All Other Systems: negative except mentioned in HPI Physical Exam General Appearance: no apparent distress HEENT: atraumatic Neck: supple Cardiovascular/Chest: normal rate, regular rhythm Abdomen: non tender, soft Genitourinary/Rectal: holt Last 24 Hour Vital Signs Date Time Temp Pulse Resp B/P (MAP) Pulse Ox O2 Delivery O2 Flow Rate FiO2 08/02/17 12:00 98.6 78 18 131/65 97 Room Air 98.6 08/02/17 09:01 72 130/64 08/02/17 08:00 98.3 72 18 130/64 97 Room Air 98.3 08/02/17 04:00 97.0 74 18 124/72 99 97.0 08/02/17 00:00 98.5 74 18 125/72 97 98.5 08/01/17 20:53 89 133/74 08/01/17 20:00 98.7 89 18 133/74 95 98.7 08/01/17 16:00 98.0 80 20 132/68 99 98.0 Intake and Output 08/01/17 08/02/17 19:00 07:00 Intake Total 400 ml 250 ml Output Total 900 ml 850 ml Balance -500 ml -600 ml Intake Oral 400 ml 250 ml Output Urine Total 900 ml 850 ml # Voids 1 # Bowel Movements 1 1 Laboratory Tests Test 08/01/17 22:00 08/02/17 06:05 Stool Occult Blood Negative (NEGATIVE) White Blood Count 10.4 K/UL (4.8-10.8) Red Blood Count 2.99 M/UL (4.70-6.10) L Hemoglobin 10.3 G/DL (14.2-18.0) L Hematocrit 31.3 % (42.0-52.0) L Mean Corpuscular Volume 105 FL (80-99) H Mean Corpuscular Hemoglobin 34.4 PG (27.0-31.0) H Mean Corpuscular Hemoglobin Concent 32.8 G/DL (32.0-36.0) Red Cell Distribution Width 17.8 % (11.6-14.8) H Platelet Count 451 K/UL (150-450) H Mean Platelet Volume 4.9 FL (6.5-10.1) L Neutrophils (%) (Auto) 66.5 % (45.0-75.0) Lymphocytes (%) (Auto) 17.8 % (20.0-45.0) L Monocytes (%) (Auto) 12.7 % (1.0-10.0) H Eosinophils (%) (Auto) 2.4 % (0.0-3.0) Basophils (%) (Auto) 0.7 % (0.0-2.0) Sodium Level 137 MMOL/L (136-145) Potassium Level 3.8 MMOL/L (3.5-5.1) Chloride Level 103 MMOL/L (98-107) Carbon Dioxide Level 26 MMOL/L (21-32) Anion Gap 8 mmol/L (5-15) Blood Urea Nitrogen 11 mg/dL (7-18) Creatinine 0.9 MG/DL (0.55-1.30) Estimat Glomerular Filtration Rate mL/min (>60) Glucose Level 107 MG/DL (74-106) H Calcium Level 8.2 MG/DL (8.5-10.1) L Total Bilirubin 1.2 MG/DL (0.2-1.0) H Direct Bilirubin 0.4 MG/DL (0.0-0.3) H Aspartate Amino Transf (AST/SGOT) 26 U/L (15-37) Alanine Aminotransferase (ALT/SGPT) 26 U/L (12-78) Alkaline Phosphatase 94 U/L (46-116) Total Protein 6.7 G/DL (6.4-8.2) Albumin 2.3 G/DL (3.4-5.0) L Globulin 4.4 g/dL Albumin/Globulin Ratio 0.5 (1.0-2.7) L Height (Feet): 5 Height (Inches): 8.00 Weight (Pounds): 146 Medications Current Medications Medications (Trade) Dose Ordered Sig/Leeroy Route PRN Reason Start Time Stop Time Status Last Admin Dose Admin Acetaminophen/ Hydrocodone Bitart ([place] 7.5/325) 1 tab Q4H PRN ORAL Moderate Pain (Pain Scale 4-6) 07/31/17 18:30 08/04/17 18:29 Dextrose (Dextrose 50%) 25 ml STAT PRN IV Hypoglycemia 07/31/17 18:30 08/24/17 18:29 Dextrose (Dextrose 50%) 50 ml STAT PRN IV Hypoglycemia 07/31/17 18:30 08/24/17 18:29 Diphenhydramine HCl (Benadryl) 25 mg Q6H PRN IVP Restlessness 07/31/17 18:30 08/24/17 18:29 Folic Acid (Folate) 1 mg DAILY ORAL 08/01/17 09:00 08/25/17 08:59 08/02/17 08:44 Haloperidol Lactate (Haldol) 5 mg Q6H PRN IM Agitation 08/01/17 11:00 08/31/17 10:59 Heparin Sodium (Porcine) (Heparin 5000 units/ml) 5,000 units EVERY 8 HOURS SUBQ 07/31/17 22:00 08/24/17 21:59 08/02/17 07:10 Magnesium Hydroxide (Mom) 30 ml DAILYPRN PRN ORAL Constipation 08/01/17 18:30 08/27/17 18:29 Metoprolol Tartrate (Lopressor) 12.5 mg Q12HR ORAL 07/31/17 21:00 09/04/17 12:26 08/02/17 09:01 Ondansetron HCl (Zofran) 4 mg Q6H PRN IVP Nausea & Vomiting 07/31/17 18:30 08/30/17 18:29 Quetiapine Fumarate (SEROquel) 25 mg Q6H PRN ORAL anxiety 07/31/17 18:30 08/30/17 18:29 08/01/17 05:48 Senna/Docusate Sodium ([place]-Colace) 1 tab TWICE A DAY ORAL 08/01/17 09:00 08/27/17 17:59 08/02/17 08:44 Tamsulosin HCl (Flomax) 0.4 mg BEDTIME ORAL 08/01/17 21:00 08/31/17 20:59 08/01/17 20:53 Temazepam (Restoril) 7.5 mg HSPRN PRN ORAL Insomnia 07/31/17 21:00 08/07/17 20:59 07/31/17 21:05 Terbinafine HCl (LamISIL) 250 mg DAILY ORAL 08/01/17 09:00 08/05/17 08:59 08/02/17 08:44 Thiamine HCl (Vitamin B1) 100 mg DAILY ORAL 08/01/17 09:00 08/28/17 08:59 08/02/17 09:00 Assessment/Plan Status: stable Assessment/Plan 77 yo male with retention, likely after orthopedic surgery. Patient feels ok. Denies voiding issues at baseline. 1. agree with flomax 2. recommend voiding trial in 48 hours 3. if fails voiding trial Sunday, recommend home with holt and outpatient follow up Donnie Jamison M.D. August 02, 2017 13:27
--- NOTE | 2017-08-02 14:37 | Infectious Diseases Prog Note ---
Assessment/Plan Problems: (1) Sepsis Assessment & Plan: blood culture is negative , monitor off vancomycin and cefepime , monitor WBC (2) UTI (urinary tract infection) Assessment & Plan: urine culture is negative so far , monitor off cefepime (3) Onychomycosis Assessment & Plan: severe, continue lamasil for 3 months (4) Hip fracture, left Assessment & Plan: S/P ORIF , continue pain control , ortho is following (5) GENTRY (acute kidney injury) Assessment & Plan: due to the above, continue hydration , monitor renal function Subjective Constitutional: Reports: no symptoms HEENT: Reports: no symptoms Respiratory: Reports: no symptoms Breasts: Reports: no symptoms Cardiovascular: Reports: no symptoms Gastrointestinal/Abdominal: Reports: no symptoms Genitourinary: Reports: no symptoms Neurologic: Reports: no symptoms Psychiatric: Reports: no symptoms Skin: Reports: no symptoms Endocrine: Reports: no symptoms Hematologic: Reports: no symptoms Musculoskeletal: Reports: pain, swelling Allergies: Coded Allergies: No Known Allergies (Unverified , 08/23/15) Subjective he was up in bed, comfortable, awake and alert, denied any fever or chills , had left hip ORIF Objective Vital Signs Last 24 Hour Vital Signs Date Time Temp Pulse Resp B/P (MAP) Pulse Ox O2 Delivery O2 Flow Rate FiO2 08/02/17 12:00 98.6 78 18 131/65 97 Room Air 98.6 08/02/17 09:01 72 130/64 08/02/17 08:00 98.3 72 18 130/64 97 Room Air 98.3 08/02/17 04:00 97.0 74 18 124/72 99 97.0 08/02/17 00:00 98.5 74 18 125/72 97 98.5 08/01/17 20:53 89 133/74 08/01/17 20:00 98.7 89 18 133/74 95 98.7 08/01/17 16:00 98.0 80 20 132/68 99 98.0 Height (Feet): 5 Height (Inches): 8.00 Weight (Pounds): 146 General Appearance: WD/WN, no acute distress HEENT: normocephalic, atraumatic, anicteric, mucous membranes moist, PERRL Respiratory/Chest: chest wall non-tender, lungs clear, normal breath sounds, no respiratory distress, no accessory muscle use Cardiovascular: normal peripheral pulses, normal rate, regular rhythm, no gallop/murmur, no JVD Abdomen: normal bowel sounds, soft, non tender, no organomegaly, non distended , no mass, no scars Extremities: no cyanosis, no clubbing Skin: no rash, no lesions, no ulcers Neurologic/Psychiatric: alert, oriented x 3, responsive Lymphatic: no neck adenopathy, no groin adenopathy Laboratory Tests Test 08/01/17 22:00 08/02/17 06:05 Stool Occult Blood Negative (NEGATIVE) White Blood Count 10.4 K/UL (4.8-10.8) Red Blood Count 2.99 M/UL (4.70-6.10) L Hemoglobin 10.3 G/DL (14.2-18.0) L Hematocrit 31.3 % (42.0-52.0) L Mean Corpuscular Volume 105 FL (80-99) H Mean Corpuscular Hemoglobin 34.4 PG (27.0-31.0) H Mean Corpuscular Hemoglobin Concent 32.8 G/DL (32.0-36.0) Red Cell Distribution Width 17.8 % (11.6-14.8) H Platelet Count 451 K/UL (150-450) H Mean Platelet Volume 4.9 FL (6.5-10.1) L Neutrophils (%) (Auto) 66.5 % (45.0-75.0) Lymphocytes (%) (Auto) 17.8 % (20.0-45.0) L Monocytes (%) (Auto) 12.7 % (1.0-10.0) H Eosinophils (%) (Auto) 2.4 % (0.0-3.0) Basophils (%) (Auto) 0.7 % (0.0-2.0) Sodium Level 137 MMOL/L (136-145) Potassium Level 3.8 MMOL/L (3.5-5.1) Chloride Level 103 MMOL/L (98-107) Carbon Dioxide Level 26 MMOL/L (21-32) Anion Gap 8 mmol/L (5-15) Blood Urea Nitrogen 11 mg/dL (7-18) Creatinine 0.9 MG/DL (0.55-1.30) Estimat Glomerular Filtration Rate mL/min (>60) Glucose Level 107 MG/DL (74-106) H Calcium Level 8.2 MG/DL (8.5-10.1) L Total Bilirubin 1.2 MG/DL (0.2-1.0) H Direct Bilirubin 0.4 MG/DL (0.0-0.3) H Aspartate Amino Transf (AST/SGOT) 26 U/L (15-37) Alanine Aminotransferase (ALT/SGPT) 26 U/L (12-78) Alkaline Phosphatase 94 U/L (46-116) Total Protein 6.7 G/DL (6.4-8.2) Albumin 2.3 G/DL (3.4-5.0) L Globulin 4.4 g/dL Albumin/Globulin Ratio 0.5 (1.0-2.7) L Current Medications Medications (Trade) Dose Ordered Sig/Leeroy Route PRN Reason Start Time Stop Time Status Last Admin Dose Admin Acetaminophen/ Hydrocodone Bitart ([place] 7.5/325) 1 tab Q4H PRN ORAL Moderate Pain (Pain Scale 4-6) 07/31/17 18:30 08/04/17 18:29 Dextrose (Dextrose 50%) 25 ml STAT PRN IV Hypoglycemia 07/31/17 18:30 08/24/17 18:29 Dextrose (Dextrose 50%) 50 ml STAT PRN IV Hypoglycemia 07/31/17 18:30 08/24/17 18:29 Diphenhydramine HCl (Benadryl) 25 mg Q6H PRN IVP Restlessness 07/31/17 18:30 08/24/17 18:29 Folic Acid (Folate) 1 mg DAILY ORAL 08/01/17 09:00 08/25/17 08:59 08/02/17 08:44 Haloperidol Lactate (Haldol) 5 mg Q6H PRN IM Agitation 08/01/17 11:00 08/31/17 10:59 Heparin Sodium (Porcine) (Heparin 5000 units/ml) 5,000 units EVERY 8 HOURS SUBQ 07/31/17 22:00 08/24/17 21:59 08/02/17 07:10 Magnesium Hydroxide (Mom) 30 ml DAILYPRN PRN ORAL Constipation 08/01/17 18:30 08/27/17 18:29 Metoprolol Tartrate (Lopressor) 12.5 mg Q12HR ORAL 07/31/17 21:00 09/04/17 12:26 08/02/17 09:01 Ondansetron HCl (Zofran) 4 mg Q6H PRN IVP Nausea & Vomiting 07/31/17 18:30 08/30/17 18:29 Quetiapine Fumarate (SEROquel) 25 mg Q6H PRN ORAL anxiety 07/31/17 18:30 08/30/17 18:29 08/01/17 05:48 Senna/Docusate Sodium ([place]-Colace) 1 tab TWICE A DAY ORAL 08/01/17 09:00 08/27/17 17:59 08/02/17 08:44 Tamsulosin HCl (Flomax) 0.4 mg BEDTIME ORAL 08/01/17 21:00 08/31/17 20:59 08/01/17 20:53 Temazepam (Restoril) 7.5 mg HSPRN PRN ORAL Insomnia 07/31/17 21:00 08/07/17 20:59 07/31/17 21:05 Terbinafine HCl (LamISIL) 250 mg DAILY ORAL 08/01/17 09:00 08/05/17 08:59 08/02/17 08:44 Thiamine HCl (Vitamin B1) 100 mg DAILY ORAL 08/01/17 09:00 08/28/17 08:59 08/02/17 09:00 Kee Mcfarlane M.D. August 02, 2017 14:37
[2017-08-02 16:00] VITALS: BP 135/60
--- NOTE | 2017-08-02 16:10 | General Progress Note ---
Assessment/Plan Status: stable Assessment/Plan encephalopathy -Seroquel 25mg q 6hr prn -dc restraints when pt is not agitated Subjective Date patient seen: August 02, 2017 Neurologic/Psychiatric: Reports: anxiety, depressed, emotional problems Allergies: Coded Allergies: No Known Allergies (Unverified , 08/23/15) Subjective the pt was calmer forgetful Objective Last 24 Hour Vital Signs Date Time Temp Pulse Resp B/P (MAP) Pulse Ox O2 Delivery O2 Flow Rate FiO2 08/02/17 12:00 98.6 78 18 131/65 97 Room Air 98.6 08/02/17 09:01 72 130/64 08/02/17 08:00 98.3 72 18 130/64 97 Room Air 98.3 08/02/17 04:00 97.0 74 18 124/72 99 97.0 08/02/17 00:00 98.5 74 18 125/72 97 98.5 08/01/17 20:53 89 133/74 08/01/17 20:00 98.7 89 18 133/74 95 98.7 Intake and Output 08/01/17 08/02/17 19:00 07:00 Intake Total 400 ml 250 ml Output Total 900 ml 850 ml Balance -500 ml -600 ml Intake Oral 400 ml 250 ml Output Urine Total 900 ml 850 ml # Voids 1 # Bowel Movements 1 1 Laboratory Tests 08/01/17 22:00: Stool Occult Blood Negative 08/02/17 06:05: White Blood Count 10.4, Red Blood Count 2.99L, Hemoglobin 10.3L, Hematocrit 31.3L, Mean Corpuscular Volume 105H, Mean Corpuscular Hemoglobin 34.4H, Mean Corpuscular Hemoglobin Concent 32.8, Red Cell Distribution Width 17.8H, Platelet Count 451H, Mean Platelet Volume 4.9L, Neutrophils (%) (Auto) 66.5, Lymphocytes (%) (Auto) 17.8L, Monocytes (%) (Auto) 12.7H, Eosinophils (%) (Auto ) 2.4, Basophils (%) (Auto) 0.7, Sodium Level 137, Potassium Level 3.8, Chloride Level 103, Carbon Dioxide Level 26, Anion Gap 8, Blood Urea Nitrogen 11 , Creatinine 0.9, Estimat Glomerular Filtration Rate , Glucose Level 107H, Calcium Level 8.2L, Total Bilirubin 1.2H, Direct Bilirubin 0.4H, Aspartate Amino Transf (AST/SGOT) 26, Alanine Aminotransferase (ALT/SGPT) 26, Alkaline Phosphatase 94, Total Protein 6.7, Albumin 2.3L, Globulin 4.4, Albumin/Globulin Ratio 0.5L Height (Feet): 5 Height (Inches): 8.00 Weight (Pounds): 146 General Appearance: WD/WN, no apparent distress, alert Morris Aguayo M.D. August 02, 2017 16:10
--- NOTE | 2017-08-02 17:14 | Cardiac Electrophysiology PN ---
Assessment/Plan Assessment/Plan 1. Troponin elevation due to rhabdomyolysis and very high CPK Denies any chest pain. Denies any prior myocardial infarction or known coronary artery disease. EKG does not show any active ischemia even though he has bifascicular block. EF 55% Continue Lopressor 12.5 bid. Stress test showed only possible ischemia. Tolerated the surgery well with no cardiac issues. 2. Rhabdomyolysis and renal failure. Both resolved 3. Hyponatremia, improved. 4. History of heavy alcohol and tobacco use. 5. Anemia with Hb 10 down to 7.6. S/P 2 units PRBC 6. Left Hip Fx. S/P Left ORIF Awaiting rehab/snif DW RN Subjective Subjective No chest pain or SOB. Awaiting placement Objective Last 24 Hour Vital Signs Date Time Temp Pulse Resp B/P (MAP) Pulse Ox O2 Delivery O2 Flow Rate FiO2 08/02/17 16:00 96.4 78 18 135/60 97 Room Air 96.4 08/02/17 12:00 98.6 78 18 131/65 97 Room Air 98.6 08/02/17 09:01 72 130/64 08/02/17 08:00 98.3 72 18 130/64 97 Room Air 98.3 08/02/17 04:00 97.0 74 18 124/72 99 97.0 08/02/17 00:00 98.5 74 18 125/72 97 98.5 08/01/17 20:53 89 133/74 08/01/17 20:00 98.7 89 18 133/74 95 98.7 Intake and Output 08/01/17 08/02/17 19:00 07:00 Intake Total 400 ml 250 ml Output Total 900 ml 850 ml Balance -500 ml -600 ml Intake Oral 400 ml 250 ml Output Urine Total 900 ml 850 ml # Voids 1 # Bowel Movements 1 1 Laboratory Tests Test 08/01/17 22:00 08/02/17 06:05 Stool Occult Blood Negative (NEGATIVE) White Blood Count 10.4 K/UL (4.8-10.8) Red Blood Count 2.99 M/UL (4.70-6.10) L Hemoglobin 10.3 G/DL (14.2-18.0) L Hematocrit 31.3 % (42.0-52.0) L Mean Corpuscular Volume 105 FL (80-99) H Mean Corpuscular Hemoglobin 34.4 PG (27.0-31.0) H Mean Corpuscular Hemoglobin Concent 32.8 G/DL (32.0-36.0) Red Cell Distribution Width 17.8 % (11.6-14.8) H Platelet Count 451 K/UL (150-450) H Mean Platelet Volume 4.9 FL (6.5-10.1) L Neutrophils (%) (Auto) 66.5 % (45.0-75.0) Lymphocytes (%) (Auto) 17.8 % (20.0-45.0) L Monocytes (%) (Auto) 12.7 % (1.0-10.0) H Eosinophils (%) (Auto) 2.4 % (0.0-3.0) Basophils (%) (Auto) 0.7 % (0.0-2.0) Sodium Level 137 MMOL/L (136-145) Potassium Level 3.8 MMOL/L (3.5-5.1) Chloride Level 103 MMOL/L (98-107) Carbon Dioxide Level 26 MMOL/L (21-32) Anion Gap 8 mmol/L (5-15) Blood Urea Nitrogen 11 mg/dL (7-18) Creatinine 0.9 MG/DL (0.55-1.30) Estimat Glomerular Filtration Rate mL/min (>60) Glucose Level 107 MG/DL (74-106) H Calcium Level 8.2 MG/DL (8.5-10.1) L Total Bilirubin 1.2 MG/DL (0.2-1.0) H Direct Bilirubin 0.4 MG/DL (0.0-0.3) H Aspartate Amino Transf (AST/SGOT) 26 U/L (15-37) Alanine Aminotransferase (ALT/SGPT) 26 U/L (12-78) Alkaline Phosphatase 94 U/L (46-116) Total Protein 6.7 G/DL (6.4-8.2) Albumin 2.3 G/DL (3.4-5.0) L Globulin 4.4 g/dL Albumin/Globulin Ratio 0.5 (1.0-2.7) L Objective HEAD AND NECK: No JVD. LUNGS: Clear. CARDIOVASCULAR: Regular S1 and S2 with no gallop or murmur. ABDOMEN: Soft. EXTREMITIES: No pitting edema. S/P L Hip surgery. Preet Spencer MD August 02, 2017 17:14
[2017-08-02 20:00] VITALS: BP 139/74
[2017-08-02] MEDS: Tamsulosin 0.4mg cap ORAL SCH (20:47)
[2017-08-03] VITALS (7 sets, daily range): BP systolic 119–151; BP diastolic 63–70
[2017-08-03] MEDS: Heparin 5000 units/ml inj SUBQ SCH ×3 (06:41→21:39)
[2017-08-03] MEDS: Docusate Sod/Senna tab ORAL SCH ×2 (08:44→18:00)
[2017-08-03] MEDS: Thiamine 100mg tab ORAL SCH (08:45)
[2017-08-03] MEDS: Metoprolol Tartrate 12.5mg TAB ORAL SCH ×2 (08:45→21:38)
--- NOTE | 2017-08-03 08:47 | Pulmonology Progress Note ---
Assessment/Plan Assessment/Plan IMPRESSION: 1. Loculated right pneumothorax. 2. Hip fracture. S/p ORIF 3. Severe bullous lung disease/emphysema DISCUSSION: Continue respiratory care Oxygen as needed Will see as needed Subjective Interval Events: None Constitutional: Reports: no symptoms HEENT: Repors: no symptoms Respiratory: Reports: no symptoms Cardiovascular: Reports: no symptoms Gastrointestinal/Abdominal: Reports: no symptoms Allergies: Coded Allergies: No Known Allergies (Unverified , 08/23/15) Objective Last 24 Hour Vital Signs Date Time Temp Pulse Resp B/P (MAP) Pulse Ox O2 Delivery O2 Flow Rate FiO2 08/03/17 08:45 79 151/70 08/03/17 04:00 98.5 76 20 135/68 98 98.5 08/03/17 00:00 98.6 82 22 132/70 99 98.6 08/02/17 20:47 86 139/74 08/02/17 20:00 99.4 86 20 139/74 100 99.4 08/02/17 16:00 96.4 78 18 135/60 97 Room Air 96.4 08/02/17 12:00 98.6 78 18 131/65 97 Room Air 98.6 08/02/17 09:01 72 130/64 Intake and Output 08/02/17 08/03/17 19:00 07:00 Intake Total 500 ml Output Total 700 ml Balance -200 ml Intake Oral 500 ml Output Urine Total 700 ml # Bowel Movements 3 2 General Appearance: no acute distress HEENT: normocephalic Respiratory/Chest: chest wall non-tender, lungs clear Cardiovascular: normal peripheral pulses, normal rate Abdomen: normal bowel sounds Laboratory Tests 08/03/17 03:32: Stool Occult Blood [Pending] 08/03/17 06:25: White Blood Count [Pending], Red Blood Count [Pending], Hemoglobin [Pending], Hematocrit [Pending], Mean Corpuscular Volume [Pending], Mean Corpuscular Hemoglobin [Pending], Mean Corpuscular Hemoglobin Concent [Pending], Red Cell Distribution Width [Pending], Platelet Count [Pending], Mean Platelet Volume [ Pending], Neutrophils (%) (Auto) [Pending], Lymphocytes (%) (Auto) [Pending], Monocytes (%) (Auto) [Pending], Eosinophils (%) (Auto) [Pending], Basophils (%) (Auto) [Pending], Sodium Level [Pending], Potassium Level [Pending], Chloride Level [Pending], Carbon Dioxide Level [Pending], Blood Urea Nitrogen [Pending], Creatinine [Pending], Estimat Glomerular Filtration Rate [Pending], Glucose Level [Pending], Calcium Level [Pending] Current Medications Medications (Trade) Dose Ordered Sig/Leeroy Route PRN Reason Start Time Stop Time Status Last Admin Dose Admin Acetaminophen/ Hydrocodone Bitart ([place] 7.5/325) 1 tab Q4H PRN ORAL Moderate Pain (Pain Scale 4-6) 07/31/17 18:30 08/04/17 18:29 Dextrose (Dextrose 50%) 25 ml STAT PRN IV Hypoglycemia 07/31/17 18:30 08/24/17 18:29 Dextrose (Dextrose 50%) 50 ml STAT PRN IV Hypoglycemia 07/31/17 18:30 08/24/17 18:29 Diphenhydramine HCl (Benadryl) 25 mg Q6H PRN IVP Restlessness 07/31/17 18:30 08/24/17 18:29 Folic Acid (Folate) 1 mg DAILY ORAL 08/01/17 09:00 08/25/17 08:59 08/03/17 08:45 Haloperidol Lactate (Haldol) 5 mg Q6H PRN IM Agitation 08/01/17 11:00 08/31/17 10:59 Heparin Sodium (Porcine) (Heparin 5000 units/ml) 5,000 units EVERY 8 HOURS SUBQ 07/31/17 22:00 08/24/17 21:59 08/03/17 06:41 Magnesium Hydroxide (Mom) 30 ml DAILYPRN PRN ORAL Constipation 08/01/17 18:30 08/27/17 18:29 Metoprolol Tartrate (Lopressor) 12.5 mg Q12HR ORAL 07/31/17 21:00 09/04/17 12:26 08/03/17 08:45 Ondansetron HCl (Zofran) 4 mg Q6H PRN IVP Nausea & Vomiting 07/31/17 18:30 08/30/17 18:29 Quetiapine Fumarate (SEROquel) 25 mg Q6H PRN ORAL anxiety 07/31/17 18:30 08/30/17 18:29 08/01/17 05:48 Senna/Docusate Sodium (Lindsay-Colace) 1 tab TWICE A DAY ORAL 08/01/17 09:00 08/27/17 17:59 08/03/17 08:44 Tamsulosin HCl (Flomax) 0.4 mg BEDTIME ORAL 08/01/17 21:00 08/31/17 20:59 08/02/17 20:47 Temazepam (Restoril) 7.5 mg HSPRN PRN ORAL Insomnia 07/31/17 21:00 08/07/17 20:59 07/31/17 21:05 Terbinafine HCl (LamISIL) 250 mg DAILY ORAL 08/01/17 09:00 08/05/17 08:59 08/03/17 08:44 Thiamine HCl (Vitamin B1) 100 mg DAILY ORAL 08/01/17 09:00 08/28/17 08:59 08/03/17 08:45 Hay Crook MD August 03, 2017 08:47
[2017-08-03 09:04] LABS: BASOPHILS % (AUTO) 1.5 % (0.0-2.0); EOSINOPHILS % (AUTO) 2.5 % (0.0-3.0); HEMATOCRIT 29.6 % (42.0-52.0); HEMOGLOBIN 9.7 G/DL (14.2-18.0); LYMPHOCYTES % (AUTO) 13.6 % (20.0-45.0); MEAN CORPUSCULAR VOLUME 106 FL (80-99); MONOCYTES % (AUTO) 13.4 % (1.0-10.0); PLATELET COUNT 485 K/UL (150-450); RED BLOOD COUNT 2.79 M/UL (4.70-6.10); RED CELL DISTRIBUTION WIDTH 17.6 % (11.6-14.8); WHITE BLOOD COUNT 10.2 K/UL (4.8-10.8)
--- NOTE | 2017-08-03 09:24 | Nephrology Progress Note ---
Assessment/Plan Assessment/Plan 1. Acute intertrochanteric fracture of left femur/Hip - patient s/p surgical correction - DC to SNF once manager case management finds location 2. DVT prophylaxsis- with heparing sub q q 8hrs 3. GENTRY- resolved, Rhabdomyolysis- resolved 4. Tiny right basilar pneumothorax. Extensive bullous emphysema -stable 5. Hypokalemia- corrected. AM labs pending 6. Urinary retention-bladder training, flomax. - appreciate Urology - if voiding trial fails Sunday morning, home with holt and outpatient follow up with Urology Subjective Date patient seen: August 03, 2017 Time patient seen: 09:20 ROS Limited/Unobtainable: No Allergies: Coded Allergies: No Known Allergies (Unverified , 08/23/15) All Systems: reviewed and negative except above Subjective Patient had hip surgery and much improved. Pending DC to SNF. Objective Last 24 Hour Vital Signs Date Time Temp Pulse Resp B/P (MAP) Pulse Ox O2 Delivery O2 Flow Rate FiO2 08/03/17 08:45 79 151/70 08/03/17 08:00 97.6 79 21 151/70 97 Room Air 97.6 08/03/17 04:00 98.5 76 20 135/68 98 98.5 08/03/17 00:00 98.6 82 22 132/70 99 98.6 08/02/17 20:47 86 139/74 08/02/17 20:00 99.4 86 20 139/74 100 99.4 08/02/17 16:00 96.4 78 18 135/60 97 Room Air 96.4 08/02/17 12:00 98.6 78 18 131/65 97 Room Air 98.6 Intake and Output 08/02/17 08/03/17 19:00 07:00 Intake Total 500 ml Output Total 700 ml Balance -200 ml Intake Oral 500 ml Output Urine Total 700 ml # Bowel Movements 3 2 Laboratory Tests 08/03/17 03:32: Stool Occult Blood [Pending] 08/03/17 06:25: White Blood Count 10.2, Red Blood Count 2.79L, Hemoglobin 9.7L, Hematocrit 29.6L , Mean Corpuscular Volume 106H, Mean Corpuscular Hemoglobin 35.0H, Mean Corpuscular Hemoglobin Concent 32.9, Red Cell Distribution Width 17.6H, Platelet Count 485H, Mean Platelet Volume 4.8L, Neutrophils (%) (Auto) 69.0, Lymphocytes (%) (Auto) 13.6L, Monocytes (%) (Auto) 13.4H, Eosinophils (%) (Auto ) 2.5, Basophils (%) (Auto) 1.5, Sodium Level [Pending], Potassium Level [ Pending], Chloride Level [Pending], Carbon Dioxide Level [Pending], Blood Urea Nitrogen [Pending], Creatinine [Pending], Estimat Glomerular Filtration Rate [ Pending], Glucose Level [Pending], Calcium Level [Pending] Height (Feet): 5 Height (Inches): 8.00 Weight (Pounds): 145 General Appearance: WD/WN, no apparent distress EENT: PERRL/EOMI, normal ENT inspection Neck: non-tender, normal alignment Cardiovascular: normal rate, regular rhythm Respiratory/Chest: lungs clear, normal breath sounds Abdomen: normal bowel sounds, non tender, soft Edema: no edema noted Arm (L), no edema noted Arm (R), no edema noted Leg (L), no edema noted Leg (R), no edema noted Pedal (L), no edema noted Pedal (R), no edema noted Generalized Tien Nielsen M.D. August 03, 2017 09:24
[2017-08-03 09:26] LABS: ANION GAP 7 mmol/L (5-15); BLOOD UREA NITROGEN 11 mg/dL (7-18); CALCIUM 8.4 MG/DL (8.5-10.1); CARBON DIOXIDE 27 MMOL/L (21-32); CHLORIDE 103 MMOL/L (98-107); CREATININE 0.8 MG/DL (0.55-1.30); POTASSIUM 3.8 MMOL/L (3.5-5.1); SODIUM 137 MMOL/L (136-145)
--- NOTE | 2017-08-03 11:31 | GI Progress Note ---
Assessment/Plan Problems: (1) Abnormal LFTs ICD Codes: R94.5 - Abnormal results of liver function studies SNOMED: 990892270 (2) Anemia ICD Codes: D64.9 - Anemia, unspecified SNOMED: 278413636 (3) Alcohol intoxication ICD Codes: F10.129 - Alcohol abuse with intoxication, unspecified SNOMED: 31325597 (4) Fall ICD Codes: W19.XXXA - Unspecified fall, initial encounter SNOMED: 6104468, 272661608 Status: stable Status Narrative Discussed with Dr. Villegas. Assessment/Plan anemia >> stable H&H s/p Open reduction and internal fixation of left intertrochanteric hip fracture with intramedullary device. Hx of EGD/colonoscopy x 4 years hepatitis panel negative abdominal U/S reviewed >> 1. Fatty liver. 2. Status post cholecystectomy 3. 11 mm right renal cyst. OB stool negative, second pending okay for DC per GI standpoint monitor H&H, prn transfusions bowel regime ppi trend LFTs fu labs outpatient GI procedures The patient was seen and examined at bedside and all new and available data was reviewed in the patients chart. I agree with the above findings, impression and plan. (Patient seen earlier today. Signature stamp does not reflect patient encounter time.). - Garrison Villegas MD Subjective Gastrointestinal/Abdominal: Reports: no symptoms Objective Last 24 Hour Vital Signs Date Time Temp Pulse Resp B/P (MAP) Pulse Ox O2 Delivery O2 Flow Rate FiO2 08/03/17 08:45 79 151/70 08/03/17 08:00 97.6 79 21 151/70 97 Room Air 97.6 08/03/17 04:00 98.5 76 20 135/68 98 98.5 08/03/17 00:00 98.6 82 22 132/70 99 98.6 08/02/17 20:47 86 139/74 08/02/17 20:00 99.4 86 20 139/74 100 99.4 08/02/17 16:00 96.4 78 18 135/60 97 Room Air 96.4 08/02/17 12:00 98.6 78 18 131/65 97 Room Air 98.6 Intake and Output 08/02/17 08/03/17 19:00 07:00 Intake Total 500 ml Output Total 700 ml Balance -200 ml Intake Oral 500 ml Output Urine Total 700 ml # Bowel Movements 3 2 Laboratory Tests Test 08/03/17 03:32 08/03/17 06:25 Stool Occult Blood Pending White Blood Count 10.2 K/UL (4.8-10.8) Red Blood Count 2.79 M/UL (4.70-6.10) L Hemoglobin 9.7 G/DL (14.2-18.0) L Hematocrit 29.6 % (42.0-52.0) L Mean Corpuscular Volume 106 FL (80-99) H Mean Corpuscular Hemoglobin 35.0 PG (27.0-31.0) H Mean Corpuscular Hemoglobin Concent 32.9 G/DL (32.0-36.0) Red Cell Distribution Width 17.6 % (11.6-14.8) H Platelet Count 485 K/UL (150-450) H Mean Platelet Volume 4.8 FL (6.5-10.1) L Neutrophils (%) (Auto) 69.0 % (45.0-75.0) Lymphocytes (%) (Auto) 13.6 % (20.0-45.0) L Monocytes (%) (Auto) 13.4 % (1.0-10.0) H Eosinophils (%) (Auto) 2.5 % (0.0-3.0) Basophils (%) (Auto) 1.5 % (0.0-2.0) Sodium Level 137 MMOL/L (136-145) Potassium Level 3.8 MMOL/L (3.5-5.1) Chloride Level 103 MMOL/L (98-107) Carbon Dioxide Level 27 MMOL/L (21-32) Anion Gap 7 mmol/L (5-15) Blood Urea Nitrogen 11 mg/dL (7-18) Creatinine 0.8 MG/DL (0.55-1.30) Estimat Glomerular Filtration Rate mL/min (>60) Glucose Level 102 MG/DL (74-106) Calcium Level 8.4 MG/DL (8.5-10.1) L Height (Feet): 5 Height (Inches): 8.00 Weight (Pounds): 145 General Appearance: WD/WN, no apparent distress, alert, thin Cardiovascular: normal rate Respiratory/Chest: normal breath sounds, no respiratory distress Abdominal Exam: normal bowel sounds, non tender, soft Extremities: normal range of motion, non-tender Jay Ochoa NP August 03, 2017 11:31
--- NOTE | 2017-08-03 13:54 | Infectious Diseases Prog Note ---
Assessment/Plan Problems: (1) Sepsis Assessment & Plan: was ruled out with negative blood culture , monitor off vancomycin and cefepime , monitor WBC (2) UTI (urinary tract infection) Assessment & Plan: urine culture is negative so far , monitor off cefepime (3) Onychomycosis Assessment & Plan: severe, continue lamasil for 3 months (4) Hip fracture, left Assessment & Plan: S/P ORIF , continue pain control , ortho is following (5) GENTRY (acute kidney injury) Assessment & Plan: due to the above, continue hydration , monitor renal function Subjective Constitutional: Reports: no symptoms HEENT: Reports: no symptoms Respiratory: Reports: no symptoms Breasts: Reports: no symptoms Cardiovascular: Reports: no symptoms Gastrointestinal/Abdominal: Reports: no symptoms Genitourinary: Reports: no symptoms Neurologic: Reports: no symptoms Psychiatric: Reports: no symptoms Skin: Reports: no symptoms Endocrine: Reports: no symptoms Hematologic: Reports: no symptoms Musculoskeletal: Reports: pain, swelling Allergies: Coded Allergies: No Known Allergies (Unverified , 08/23/15) Subjective he was up in bed, comfortable, awake and alert, denied any fever or chills , had left hip ORIF Objective Vital Signs Last 24 Hour Vital Signs Date Time Temp Pulse Resp B/P (MAP) Pulse Ox O2 Delivery O2 Flow Rate FiO2 08/03/17 12:00 98.4 70 21 127/66 99 Room Air 98.4 08/03/17 08:45 79 151/70 08/03/17 08:00 97.6 79 21 151/70 97 Room Air 97.6 08/03/17 04:00 98.5 76 20 135/68 98 98.5 08/03/17 00:00 98.6 82 22 132/70 99 98.6 08/02/17 20:47 86 139/74 08/02/17 20:00 99.4 86 20 139/74 100 99.4 08/02/17 16:00 96.4 78 18 135/60 97 Room Air 96.4 Height (Feet): 5 Height (Inches): 8.00 Weight (Pounds): 145 General Appearance: WD/WN, no acute distress HEENT: normocephalic, atraumatic, anicteric, mucous membranes moist, PERRL Respiratory/Chest: chest wall non-tender, lungs clear, normal breath sounds, no respiratory distress, no accessory muscle use Cardiovascular: normal peripheral pulses, normal rate, regular rhythm, no gallop/murmur, no JVD Abdomen: normal bowel sounds, soft, non tender, no organomegaly, non distended , no mass, no scars Extremities: no cyanosis, no clubbing Skin: no rash, no lesions, no ulcers Neurologic/Psychiatric: alert, responsive Laboratory Tests Test 08/03/17 03:32 08/03/17 06:25 Stool Occult Blood Negative (NEGATIVE) White Blood Count 10.2 K/UL (4.8-10.8) Red Blood Count 2.79 M/UL (4.70-6.10) L Hemoglobin 9.7 G/DL (14.2-18.0) L Hematocrit 29.6 % (42.0-52.0) L Mean Corpuscular Volume 106 FL (80-99) H Mean Corpuscular Hemoglobin 35.0 PG (27.0-31.0) H Mean Corpuscular Hemoglobin Concent 32.9 G/DL (32.0-36.0) Red Cell Distribution Width 17.6 % (11.6-14.8) H Platelet Count 485 K/UL (150-450) H Mean Platelet Volume 4.8 FL (6.5-10.1) L Neutrophils (%) (Auto) 69.0 % (45.0-75.0) Lymphocytes (%) (Auto) 13.6 % (20.0-45.0) L Monocytes (%) (Auto) 13.4 % (1.0-10.0) H Eosinophils (%) (Auto) 2.5 % (0.0-3.0) Basophils (%) (Auto) 1.5 % (0.0-2.0) Sodium Level 137 MMOL/L (136-145) Potassium Level 3.8 MMOL/L (3.5-5.1) Chloride Level 103 MMOL/L (98-107) Carbon Dioxide Level 27 MMOL/L (21-32) Anion Gap 7 mmol/L (5-15) Blood Urea Nitrogen 11 mg/dL (7-18) Creatinine 0.8 MG/DL (0.55-1.30) Estimat Glomerular Filtration Rate mL/min (>60) Glucose Level 102 MG/DL (74-106) Calcium Level 8.4 MG/DL (8.5-10.1) L Current Medications Medications (Trade) Dose Ordered Sig/Leeroy Route PRN Reason Start Time Stop Time Status Last Admin Dose Admin Acetaminophen/ Hydrocodone Bitart ([place] 7.5/325) 1 tab Q4H PRN ORAL Moderate Pain (Pain Scale 4-6) 07/31/17 18:30 08/04/17 18:29 Dextrose (Dextrose 50%) 25 ml STAT PRN IV Hypoglycemia 07/31/17 18:30 08/24/17 18:29 Dextrose (Dextrose 50%) 50 ml STAT PRN IV Hypoglycemia 07/31/17 18:30 08/24/17 18:29 Diphenhydramine HCl (Benadryl) 25 mg Q6H PRN IVP Restlessness 07/31/17 18:30 08/24/17 18:29 Folic Acid (Folate) 1 mg DAILY ORAL 08/01/17 09:00 08/25/17 08:59 08/03/17 08:45 Haloperidol Lactate (Haldol) 5 mg Q6H PRN IM Agitation 08/01/17 11:00 08/31/17 10:59 Heparin Sodium (Porcine) (Heparin 5000 units/ml) 5,000 units EVERY 8 HOURS SUBQ 07/31/17 22:00 08/24/17 21:59 08/03/17 06:41 Magnesium Hydroxide (Mom) 30 ml DAILYPRN PRN ORAL Constipation 08/01/17 18:30 08/27/17 18:29 Metoprolol Tartrate (Lopressor) 12.5 mg Q12HR ORAL 07/31/17 21:00 09/04/17 12:26 08/03/17 08:45 Ondansetron HCl (Zofran) 4 mg Q6H PRN IVP Nausea & Vomiting 07/31/17 18:30 08/30/17 18:29 Quetiapine Fumarate (SEROquel) 25 mg Q6H PRN ORAL anxiety 07/31/17 18:30 08/30/17 18:29 08/01/17 05:48 Senna/Docusate Sodium ([place]-Colace) 1 tab TWICE A DAY ORAL 08/01/17 09:00 08/27/17 17:59 08/03/17 08:44 Tamsulosin HCl (Flomax) 0.4 mg BEDTIME ORAL 08/01/17 21:00 08/31/17 20:59 08/02/17 20:47 Temazepam (Restoril) 7.5 mg HSPRN PRN ORAL Insomnia 07/31/17 21:00 08/07/17 20:59 07/31/17 21:05 Terbinafine HCl (LamISIL) 250 mg DAILY ORAL 08/01/17 09:00 08/05/17 08:59 08/03/17 08:44 Thiamine HCl (Vitamin B1) 100 mg DAILY ORAL 08/01/17 09:00 08/28/17 08:59 08/03/17 08:45 Kee Mcfarlane M.D. August 03, 2017 13:54
--- NOTE | 2017-08-03 14:54 | General Progress Note ---
Assessment/Plan Status: stable, progressing Assessment/Plan encephalopathy -Seroquel 25mg q 6hr prn -dc restraints when pt is not agitated Subjective Date patient seen: August 03, 2017 Neurologic/Psychiatric: Reports: anxiety, depressed, emotional problems Allergies: Coded Allergies: No Known Allergies (Unverified , 08/23/15) Subjective the pt was calmer forgetful Objective Last 24 Hour Vital Signs Date Time Temp Pulse Resp B/P (MAP) Pulse Ox O2 Delivery O2 Flow Rate FiO2 08/03/17 12:00 98.4 70 21 127/66 99 Room Air 98.4 08/03/17 08:45 79 151/70 08/03/17 08:00 97.6 79 21 151/70 97 Room Air 97.6 08/03/17 04:00 98.5 76 20 135/68 98 98.5 08/03/17 00:00 98.6 82 22 132/70 99 98.6 08/02/17 20:47 86 139/74 08/02/17 20:00 99.4 86 20 139/74 100 99.4 08/02/17 16:00 96.4 78 18 135/60 97 Room Air 96.4 Intake and Output 08/02/17 08/03/17 19:00 07:00 Intake Total 500 ml Output Total 700 ml Balance -200 ml Intake Oral 500 ml Output Urine Total 700 ml # Bowel Movements 3 2 Laboratory Tests 08/03/17 03:32: Stool Occult Blood Negative 08/03/17 06:25: White Blood Count 10.2, Red Blood Count 2.79L, Hemoglobin 9.7L, Hematocrit 29.6L , Mean Corpuscular Volume 106H, Mean Corpuscular Hemoglobin 35.0H, Mean Corpuscular Hemoglobin Concent 32.9, Red Cell Distribution Width 17.6H, Platelet Count 485H, Mean Platelet Volume 4.8L, Neutrophils (%) (Auto) 69.0, Lymphocytes (%) (Auto) 13.6L, Monocytes (%) (Auto) 13.4H, Eosinophils (%) (Auto ) 2.5, Basophils (%) (Auto) 1.5, Sodium Level 137, Potassium Level 3.8, Chloride Level 103, Carbon Dioxide Level 27, Anion Gap 7, Blood Urea Nitrogen 11 , Creatinine 0.8, Estimat Glomerular Filtration Rate , Glucose Level 102, Calcium Level 8.4L Height (Feet): 5 Height (Inches): 8.00 Weight (Pounds): 145 General Appearance: WD/WN, no apparent distress, alert Neurologic: alert, responsive, depressed affect - forgetful Morris Aguayo M.D. August 03, 2017 14:54
--- NOTE | 2017-08-03 16:06 | Cardiac Electrophysiology PN ---
Assessment/Plan Assessment/Plan 1. Troponin elevation due to rhabdomyolysis. Denies any chest pain. Denies any prior myocardial infarction or known coronary artery disease. EKG does not show any active ischemia even though he has bifascicular block. EF 55% Continue Lopressor 12.5 bid. Stress test showed only possible ischemia. Tolerated the surgery well with no cardiac issues. 2. Rhabdomyolysis and renal failure. Both resolved 3. Hyponatremia, improved. 4. History of heavy alcohol and tobacco use. 5. Anemia with Hb 10 down to 7.6. S/P 2 units PRBC. Stool OB pending 6. Left Hip Fx. S/P Left ORIF Awaiting rehab/snif DW RN Subjective Subjective No chest pain or SOB. No events Objective Last 24 Hour Vital Signs Date Time Temp Pulse Resp B/P (MAP) Pulse Ox O2 Delivery O2 Flow Rate FiO2 08/03/17 16:00 97.1 70 21 119/63 99 Room Air 97.1 08/03/17 12:00 98.4 70 21 127/66 99 Room Air 98.4 08/03/17 08:45 79 151/70 08/03/17 08:00 97.6 79 21 151/70 97 Room Air 97.6 08/03/17 04:00 98.5 76 20 135/68 98 98.5 08/03/17 00:00 98.6 82 22 132/70 99 98.6 08/02/17 20:47 86 139/74 08/02/17 20:00 99.4 86 20 139/74 100 99.4 Intake and Output 08/02/17 08/03/17 19:00 07:00 Intake Total 500 ml Output Total 700 ml Balance -200 ml Intake Oral 500 ml Output Urine Total 700 ml # Bowel Movements 3 2 Laboratory Tests Test 08/03/17 03:32 08/03/17 06:25 Stool Occult Blood Negative (NEGATIVE) White Blood Count 10.2 K/UL (4.8-10.8) Red Blood Count 2.79 M/UL (4.70-6.10) L Hemoglobin 9.7 G/DL (14.2-18.0) L Hematocrit 29.6 % (42.0-52.0) L Mean Corpuscular Volume 106 FL (80-99) H Mean Corpuscular Hemoglobin 35.0 PG (27.0-31.0) H Mean Corpuscular Hemoglobin Concent 32.9 G/DL (32.0-36.0) Red Cell Distribution Width 17.6 % (11.6-14.8) H Platelet Count 485 K/UL (150-450) H Mean Platelet Volume 4.8 FL (6.5-10.1) L Neutrophils (%) (Auto) 69.0 % (45.0-75.0) Lymphocytes (%) (Auto) 13.6 % (20.0-45.0) L Monocytes (%) (Auto) 13.4 % (1.0-10.0) H Eosinophils (%) (Auto) 2.5 % (0.0-3.0) Basophils (%) (Auto) 1.5 % (0.0-2.0) Sodium Level 137 MMOL/L (136-145) Potassium Level 3.8 MMOL/L (3.5-5.1) Chloride Level 103 MMOL/L (98-107) Carbon Dioxide Level 27 MMOL/L (21-32) Anion Gap 7 mmol/L (5-15) Blood Urea Nitrogen 11 mg/dL (7-18) Creatinine 0.8 MG/DL (0.55-1.30) Estimat Glomerular Filtration Rate mL/min (>60) Glucose Level 102 MG/DL (74-106) Calcium Level 8.4 MG/DL (8.5-10.1) L Objective HEAD AND NECK: No JVD. LUNGS: Clear. CARDIOVASCULAR: Regular S1 and S2 with no gallop or murmur. ABDOMEN: Soft. EXTREMITIES: No pitting edema. S/P L Hip surgery. Preet Spencer MD August 03, 2017 16:06
[2017-08-03] MEDS: Tamsulosin 0.4mg cap ORAL SCH (21:38)
--- NOTE | 2017-08-04 21:46 | Discharge Summary ---
DATE OF ADMISSION: 07/25/2017 DATE OF DISCHARGE: 08/03/2017 REASON FOR HOSPITALIZATION: 1. Status post fall with acute intertrochanteric fracture of left femur. 2. Alcohol dependency. HOSPITAL COURSE: The patient is a pleasant 77-year-old gentleman, who was admitted on 07/25/2017 after being found on the floor for several days. The patient had fallen and was unable to get up. Upon presentation to the emergency room, it was noted that he had a bout of acute kidney injury along with rhabdomyolysis and an acute intertrochanteric fracture of the left femur. Orthopedics Dr. Zepeda was consulted and the patient was admitted. Throughout his hospitalization, the patient did extremely well. Acute kidney injury and rhabdomyolysis resolved. The patient underwent successful orthopedic surgery to fix his intertrochanteric fracture of his femur. Postoperatively, he did develop urinary retention requiring a White catheter. Urology did evaluate the patient and recommended White remain in place and follow up as an outpatient for bladder training. The patient did extremely well and PT and OT evaluated the patient and he was discharged to SNF/rehab DISCHARGE MEDICATIONS: None. DISCHARGE DISPOSITION: The patient is stable to be [facility] DISCHARGE DIAGNOSES: 1. Acute intertrochanteric fracture of the femur. 2. Status post repair of intertrochanteric fracture of the femur. 3. Alcohol dependency. 4. Urinary retention. POST HOSPITAL FOLLOWUP: The patient to follow up with Dr. Donnie Jamison, Urology for bladder training. Tien Nielsen MD DR: HEAVENLY JOB#: [id number] CC: GREGOR
== END 2017-08-03 23:05 | DRG 308 ==
LOC: EMR 15:40 → 2E 16:53 → EDBEDREQ 17:16 → EDBEDREQSVC 17:33 → EDBEDREQ 17:48 → 4E 07-31 18:34
PROC: 0QS706Z Reposition Left Upper Femur with Intramedullary Internal Fixation Device, Open Approach (ICD-10-PCS; principal; 2017-07-28 08:00)
DX: S72.142A Displaced intertrochanteric fracture of left femur, initial encounter for closed fracture (principal); G93.40 Encephalopathy, unspecified; N17.9 Acute kidney failure, unspecified; E87.1 Hypo-osmolality and hyponatremia; J93.9 Pneumothorax, unspecified; E86.0 Dehydration; B35.1 Tinea unguium; W19.XXXA Unspecified fall, initial encounter; Y92.019 Unspecified place in single-family (private) house as the place of occurrence of the external cause; T79.6XXA Traumatic ischemia of muscle, initial encounter; Z72.0 Tobacco use; N05.8 Unspecified nephritic syndrome with other morphologic changes; N39.0 Urinary tract infection, site not specified; R33.9 Retention of urine, unspecified; D64.9 Anemia, unspecified; K76.0 Fatty (change of) liver, not elsewhere classified; R94.5 Abnormal results of liver function studies; J43.9 Emphysema, unspecified; E87.6 Hypokalemia; J47.9 Bronchiectasis, uncomplicated; F10.20 Alcohol dependence, uncomplicated
CPT/HCPCS: 36415; 70450; 71045; 71250; 72125; 73502; 76000; 76700; 76770; 78452; 80048; 80053; 80202; 81003; 82248; 82270; 82550; 82553; 83880; 84484; 85007; 85025; 85610; 85730; 86705; 86709; 86803; 86850; 86900; 86901; 86920; 87040; 87086; 87340; 90471; 90715; 93005; 93017; 93306; 94003; 94150; 99285; C9399; J2250; J2785; J3490